=== PATIENT | male | born 1940 | race Caucasian/White ===

== ENCOUNTER 2016-11-01 09:37 | Day surgery (SDC) | payer MEDICARE ==
[2016-11-01] MEDS ORDERED: LIDOCAINE 2% MDV (20MG/ML) 20ML VIAL IV ONE (14:27)
[2016-11-01] MEDS ORDERED: MIDAZOLAM HCL 2MG/2ML VIAL IV ONE (14:27)
[2016-11-01] MEDS ORDERED: PROPOFOL 10 MG/ML VIAL IV ONE (14:27)
--- NOTE | 2016-11-07 09:22 | Operative Note ---
DATE OF SURGERY: 11/01/2016 SURGEON: Junior Ye MD OPERATION: COLONOSCOPY. INDICATIONS: This is a 76-year-old male with history of colon polyps, last colonoscopy about 5 years ago, who presented for surveillance colonoscopy. POSTOPERATIVE DIAGNOSES: 1. Left-sided colonic diverticulosis. 2. A 5 mm sessile polyp in the cecum that was removed by cold snare. 3. Grade 1 internal hemorrhoids. ANESTHESIA: Sedation is per Anesthesia. Pulse oximetry was monitored throughout the procedure to maintain O2 saturation of 90% or greater. Supplemental oxygen was administered via nasal cannula. Cardiac and vital signs were monitored throughout the duration of the procedure, and they were stable. The procedure of colonoscopy and risks and alternatives of the procedure, including the risk of bleeding and perforation, among others, were explained to the patient who voiced understanding and agreed to have the procedure done. Physical examination was performed, and the patient was found stable for sedation. PROCEDURE: The patient was placed in the left lateral position. Sedation was initiated. A digital rectal exam was performed and showed some mild external hemorrhoids with no palpable rectal masses. An Olympus PCF-180AL colonoscope was then inserted into the rectum under direct visualization. It was advanced to the cecum without difficulty. The ileocecal valve and appendiceal orifice were identified and photographed. The colonic mucosa was carefully examined upon introduction of the colonoscope. There were scattered diverticula noted in the sigmoid and descending colon. In the cecum was a 6 mm sessile polyp that was noted and was removed by cold snare. There were no other lesions noted. The colonoscope was then withdrawn while carefully examining the colonic mucosal surfaces. No other lesions were noted. In the rectum, retroflexion was performed and grade 1 internal hemorrhoids were noted. The colonoscope was then withdrawn and the procedure was terminated. The patient tolerated the procedure well without any immediate complications. He remained with stable vital signs and was transferred to the recovery room. RECOMMENDATIONS: 1. The patient should be on a high-fiber diet. 2. The patient is to have a repeat colonoscopy for surveillance in 3 or 5 years depending on the histology of the polyp. Thank you for allowing me to participate in the care of your patient. CC: Dr. Bey Junior Ye MD Date/Time [facility]
== END 2016-11-01 17:27 | disposition home or self-care (01) ==
LOC: HOP 09:37
PROVIDERS: ATTEND Internal Medicine Gastroenterology
DX: Z12.11 Encounter for screening for malignant neoplasm of colon (principal); Z86.010 Personal history of colon polyps; D12.0 Benign neoplasm of cecum; K64.0 First degree hemorrhoids; K57.30 Diverticulosis of large intestine without perforation or abscess without bleeding; E78.00 Pure hypercholesterolemia, unspecified; I10 Essential (primary) hypertension; E11.9 Type 2 diabetes mellitus without complications; Z79.4 Long term (current) use of insulin; Z79.84 Long term (current) use of oral hypoglycemic drugs

== ENCOUNTER 2017-04-15 20:51 | Inpatient (IN) | payer MEDICARE ==
[2017-04-15] MEDS ORDERED: ACETAMINOPHEN 500 MG TABLET PO ONE (21:06)
[2017-04-15 21:10] LABS: HEMATOCRIT 42.1 % (42.0-52.0); HEMOGLOBIN 15.3 gm/dl (14.0-18.0); MEAN CELL VOLUME 99.1 fl (81-97); MEAN CORPUSCULAR HGB CONC 36.3 g/dl (32-36); MEAN PLATELET VOLUME 10.2 fl (7.4-10.4); RED BLOOD COUNT 4.25 M/uL (4.40-5.70); RED CELL DISTRIBUTION WIDTH 15.1 % (11.5-14.5)
[2017-04-15] MEDS ORDERED: ONDANSETRON HCL IV 4 MG/2 ML VIAL IVP ONE (21:10)
--- NOTE | 2017-04-15 21:12 | Emergency Department Record ---
History of Present Illness - General Chief Complaint: Tremor Stated Complaint: UNCONTROLLABLE SHAKING Time Seen by Provider: 04/15/17 20:52 Source: Patient Mode of Arrival: Wheelchair Limitations: No limitations - History of Present Illness Initial comments: 76 yo male presents to ED for evaluation of fever and shaking this evening. Patient denies cough symptoms or VIKTORIYA, denies urinary symptoms. Patient does report a history of ascites secondary to cirrhosis, reports mild abdominal pain symptoms. Patient reports that he is due for paracentesis in 2 days. Patient reports history of IDDM and HTN. -: Days(s) Consistency: Constant Improves with: None Worsens with: None Associated Symptoms: Nausea/vomiting - Jeannine Coma Scale Eye Response: (4) Open spontaneously Motor Response: (6) Obeys commands Verbal Response: (5) Oriented Jeannine Total: 15 - Related Data Home Medications Medication Instructions Recorded Confirmed Last Taken Beta-Carotene(A)-Vits C,E/Mins 1 each PO DAILY 04/15/17 04/15/17 04/15/17 08:00 [Vision Vitamins] 1 tablet Glimepiride [Amaryl] 4 mg PO BID 04/15/17 04/15/17 04/15/17 18:00 4 mg Insulin Glargine,Hum.rec.anlog 1 unit SQ QPM 04/15/17 04/15/17 04/15/17 08:00 [Lantus] Losartan Potassium [Cozaar] 12.5 mg PO DAILY 04/15/17 04/15/17 04/15/17 08:00 12.5 Nitroglycerin [Nitro-Dur] 0.5 patch TD Q24H 04/15/17 04/15/17 04/15/17 08:00 (1/2) 0.4mg/hr patch Pravastatin Sodium [Pravachol] 40 mg PO DAILY 04/15/17 04/15/17 04/15/17 18:00 40 mg Spironolactone [Aldactone] 50 mg PO BID 04/15/17 04/15/17 04/15/17 18:00 50 mg Torsemide [Demadex] 30 mg PO DAILY 04/15/17 04/15/17 04/15/17 08:00 30 mg Allergies Allergy/AdvReac Type Severity Reaction Status Date / Time Penicillins Allergy RASH Verified 04/15/17 21:00 Travel Screening - Travel/Exposure Within Last 30 Days Have you traveled within the last 30 days?: No - Travel/Exposure Within Last Year Have you traveled outside the [place] in the last year?: No - Additonal Travel Details Have you been exposed to anyone with a communicable illness?: No - Travel Symptoms Symptom Screening: None Review of Systems Constitutional: Reports: Chills, Fever, Malaise. Denies: Night sweats Eyes: Denies: Eye discharge, Eye pain ENT: Denies: Congestion, Ear pain Respiratory: Denies: Cough, Dyspnea Cardiovascular: Reports: Edema. Denies: Chest pain, Dyspnea on exertion Endocrine: Denies: Fatigue, Heat or cold intolerance Gastrointestinal: Reports: Abdominal pain, Nausea. Denies: Vomiting Genitourinary: Denies: Incontinence, Retention Musculoskeletal: Reports: Myalgia. Denies: Arthralgia, Back pain Skin: Denies: Bruising, Change in color Neurological: Denies: Abnormal gait, Confusion, Headache, Seizure Psychiatric: Denies: Anxiety Hematological/Lymphatic: Denies: Anemia Past Medical History - SOCIAL HISTORY Smoking Status: Former smoker Alcohol Use: None Drug Use: None - RESPIRATORY Hx Respiratory Disorders: No - CARDIOVASCULAR Hx Cardio Disorders: Yes Hx Deep Vein Thrombosis: Yes Hx Edema: Yes Hx Hypertension: Yes Comment:: HIGH CHOLESTEROL - NEURO Hx Neuro Disorders: No - GI Hx GI Disorders: Yes Hx Diverticulitis: Yes Hx Liver Disease: Yes (?) - Hx Genitourinary Disorders: No - ENDOCRINE Hx Endocrine Disorders: Yes Hx Diabetes: Yes - MUSCULOSKELETAL Hx Musculoskeletal Disorders: No - PSYCH Hx Psych Problems: No - HEMATOLOGY/ONCOLOGY Hx Hematology/Oncology Disorders: Yes Hx Blood Disorders: Yes (low platelets) Comment:: MELANOMA Family Medical History Any Significant Family History?: Yes Hx Cancer: Father Physical Exam - General General Appearance: Alert, Oriented x3, Cooperative, Moderate distress Limitations: No limitations - Head Head exam: Atraumatic, Normocephalic, Normal inspection Head exam detail: negative: Abrasion, Contusion, Sauer's sign, General tenderness, Hematoma, Laceration - Eye Eye exam: Normal appearance. negative: Conjunctival injection, Periorbital swelling, Periorbital tenderness, Scleral icterus - ENT Ear exam: negative: Auricular hematoma, Auricular trauma Nasal Exam: negative: Active bleeding, Discharge, Dried blood, Foreign body - Neck Neck exam: Normal inspection. negative: Meningismus, Tenderness - Respiratory Respiratory exam: Normal lung sounds bilaterally. negative: Rales, Respiratory distress, Rhonchi, Stridor - Cardiovascular Cardiovascular Exam: Normal heart sounds, Tachycardia - GI/Abdominal GI/Abdominal exam: Soft, Tenderness (Mild, diffuse TTP on examination, no rebound, no guarding.). negative: Rebound, Rigid - Rectal Rectal exam: Deferred - exam: Deferred - Extremities Extremities exam: Pedal edema. negative: Tenderness - Back Back exam: Denies: CVA tenderness (R), CVA tenderness (L) - Neurological Neurological exam: Alert, Normal gait, Oriented X3 - Psychiatric Psychiatric exam: Normal affect, Normal mood - Skin Skin exam: Normal color. negative: Abrasion Type of lesion: negative: abrasion Course Vital Signs 04/15/17 04/15/17 20:54 20:57 Temperature 98.6 F Pulse Rate [ 103 H Pulse Ox Probe] Respiratory 20 24 Rate Blood Pressure 148/91 [Left Arm] Pulse Ox 93 L - Reevaluation(s) Reevaluation #1: 04/15/17 21:37 Labs reviewed, WBC 9.0 with 83% Neutrophils. Lactic acid 3.3, Ammonia 80, glucose 208. Influenza negative. UA pending. Reevaluation #2: 04/15/17 21:47 UA resulted and appears normal. CXR: RLL infiltrate. Based on the patient's low oxygen saturation and physical examination specifically the lack of peritoneal signs in the abdomen and a lack of a portal of entry into the abdominal cavity (peritoneal dialysis catheter), I do not suspect SBP on examination at this time. Rocephin and Zithromax ordered for CAP , will admit for further evaluation. Reevaluation #3: 04/16/17 03:55 Per floor nursing staff, EKG was performed per med-surg protocol for rhythm change. EKG was reviewed, appears c/w atrial fibrillation/flutter, rate controlled. As the patient is not currently a rapid response and is rate controlled, nursing staff was asked to consult with the admitting physician to determine if anticoagulation should be initiated in the presence of thrombocytopenia. Reevaluation #4: 04/16/17 06:42 Case was discussed with Dr. Croft, will accept admission. Medical Decision Making - Lab Data Result diagrams: 04/15/17 21:00 04/15/17 21:00 Lab Results 04/15/17 Range/Units 21:00 Lactic Acid Cancelled Disposition Disposition: Admit Clinical Impression: Lactic acidosis, Hepatic encephalopathy, IDDM (insulin dependent diabetes mellitus) CAP (community acquired pneumonia) Qualifiers: Laterality: right Lung location: lower lobe of lung Qualified Code(s): J18.1 - Lobar pneumonia, unspecified organism Disposition: Still a Patient at [facility] Decision to Admit: Admit from ER Decision to Admit Date: 04/15/17 Decision to Admit Time: 21:49 Time of Disposition: 21:49 Quality - Quality Measures Quality Measures: N/A - Blood Pressure Screening Does Patient Have Any of the Following: Active Dx of HTN Blood Pressure Classification: Normal BP Reading Systolic Measurement: 105 Diastolic Measurement: 75 Screening for High Blood Pressure: Patient Exclusion, Hx of HTN [G9744]
[2017-04-15 21:14] LABS: PLATELET COUNT 80 K/uL (130-400)
[2017-04-15] MEDS ORDERED: 0.9 % SODIUM CHLORIDE 1000ML 500 ML IV SCH (21:15)
[2017-04-15 21:22] LABS: BLOOD UREA NITROGEN 21 mg/dL (8-23); EST GLOMERULAR FILTRATION RATE > 60 mL/min
[2017-04-15 21:23] LABS: INFLUENZA A NEGATIVE (NEGATIVE); INFLUENZA B NEGATIVE (NEGATIVE); TOTAL PROTEIN 7.6 g/dL (6.6-8.7)
[2017-04-15 21:25] LABS: GLUCOSE,RANDOM 208 mg/dL (74-109)
[2017-04-15 21:27] LABS: ALT/SGPT 47 U/L (<41); AST/SGOT 64 U/L (10.0-50.0)
[2017-04-15 21:28] LABS: ALB/GLOB RATIO 0.9 (1.1-1.8); ALBUMIN 3.5 g/dL (4.0-5.0); ALKALINE PHOSPHATASE 191 U/L (40-129)
[2017-04-15 21:40] LABS: URINE APPEARANCE CLEAR; URINE BILIRUBIN NEGATIVE (NEGATIVE); URINE BLOOD NEGATIVE (NEGATIVE); URINE COLOR STRAW; URINE GLUCOSE (UA) NEGATIVE (NEGATIVE); URINE KETONE NEGATIVE (NEGATIVE); URINE LEUKOCYTE ESTERASE NEGATIVE (NEGATIVE); URINE NITRITE NEGATIVE (NEGATIVE); URINE PROTEIN NEGATIVE (NEGATIVE); URINE UROBILINOGEN >=8.0 E.U./dL (0.20 - 1.00)
[2017-04-15] MEDS ORDERED: CEFTRIAXONE SODIUM 1 GM in 0.9 % SODIUM CHLORIDE 100ML 100 ML IVPB ONE (21:49)
[2017-04-15] MEDS ORDERED: AZITHROMYCIN 500 MG in 0.9 % SODIUM CHLORIDE 250ML 250 ML IVPB ONE (21:49)
[2017-04-15] MEDS ORDERED: 0.9 % SODIUM CHLORIDE 1000ML 1,000 ML IV PRN (22:26)
[2017-04-15] MEDS ORDERED: ACETAMINOPHEN 500 MG TABLET PO PRN (22:26)
[2017-04-15] MEDS ORDERED: CEFTRIAXONE SODIUM 1 GM in 0.9 % SODIUM CHLORIDE 100ML 100 ML IVPB SCH (22:26)
[2017-04-15] MEDS ORDERED: NITROGLYCERIN 0.4 MG TD SCH (22:26)
[2017-04-15] MEDS ORDERED: SPIRONOLACTONE 25 MG TAB PO SCH (22:26)
[2017-04-15] MEDS ORDERED: PNEUM 13-VAL/PF 0.5 ML IM ONE (23:13)
[2017-04-15] MEDS: LEVEMIR FLEXTOUCH 100 UNIT/ML INSULIN PEN SQ SCH (23:33)
[2017-04-16] MEDS ORDERED: AZITHROMYCIN 500 MG in 0.9 % SODIUM CHLORIDE 250ML 250 ML IVPB SCH ×2
[2017-04-16] MEDS: IPRATROPIUM/ALBUTEROL (0.5MG/3MG) NEB INH SCH ×4 (00:10→09:39)
[2017-04-16] MEDS ORDERED: IBUPROFEN 400 MG TABLET PO PRN (01:02)
[2017-04-16] MEDS ORDERED: 0.9 % SODIUM CHLORIDE 1000ML 1,000 ML IV ONE (06:22)
[2017-04-16 06:46] LABS: BLOOD UREA NITROGEN 24 mg/dL (8-23); EST GLOMERULAR FILTRATION RATE > 60 mL/min
[2017-04-16 06:49] LABS: GLUCOSE,RANDOM 135 mg/dL (74-109)
[2017-04-16 06:54] LABS: CKMB 3.3 ng/mL (<6.73)
[2017-04-16] MEDS: LEVEMIR FLEXTOUCH 100 UNIT/ML INSULIN PEN SQ SCH (08:08)
[2017-04-16] MEDS ORDERED: LEVOFLOXACIN/D5W 750 MG/150 ML BAG IVPB SCH (08:45)
[2017-04-16 09:08] LABS: INR 1.6; PROTHROMBIN TIME (PATIENT) 17.4 SECONDS (9.5-12.1)
[2017-04-16] MEDS ORDERED: LOSARTAN POTASSIUM 25 MG TABLET PO SCH (10:00)
[2017-04-16] MEDS ORDERED: TORSEMIDE 20 MG PO SCH (10:00)
[2017-04-16] MEDS ORDERED: NITROGLYCERIN 0.2 MG TD SCH (10:00)
--- NOTE | 2017-04-16 10:18 | RADIOLOGY REPORT ---
EXAM: CHEST, TWO VIEWS HISTORY: FEVER. TECHNIQUE: PA and lateral upright views of the chest were obtained. Comparison: None. FINDINGS: The heart, mediastinum, and pulmonary vasculature are normal. There is mild infiltrate at the right lung base. Minor linear atelectasis is present at the left lung base. The upper lung marie are clear. There is no pneumothorax or effusion. The bones appear intact. IMPRESSION: MODERATE BASILAR INFILTRATE SUGGESTING DEVELOPING PNEUMONIA. JOB NUMBER: [id number] MTDD
--- NOTE | 2017-04-16 11:02 | History and Physical Report ---
DATE OF EVALUATION: 04/16/2017 DATE OF ADMISSION: 04/15/2017 CHIEF COMPLAINT: Fever, abdominal ascites, shakes and chills. HISTORY OF THE PRESENT ILLNESS: This 76-year-old male presented to the Emergency Department with fever, shakes, chills, and abdominal pain. He was evaluated by Dr. Brady and admitted to the hospital for right lower quadrant pneumonia and ascites. The patient initially denied much of a cough, but when probed as far as his cough, he was coughing up sputum occasionally. He did not have a fever prior to last night. He did have ascites that has been going on for about 4 weeks. He has gained about 20 to 30 pounds of weight in the last 4 weeks, and he was being scheduled to see Dr. Romero as an outpatient for her ascites, liver disease with a possible paracentesis in mind. Patient has a history of insulin-dependent diabetes mellitus and hypertension. PAST MEDICAL HISTORY: Diabetes mellitus with insulin use, idiopathic thrombocytopenia (platelet count is running about 75,000 to 80,000), fatty liver disease, possible cirrhosis but I do not believe it has been diagnosed at this time, hypertension, hypercholesterolemia, coronary artery disease, and he is an ex-smoker. PAST SURGICAL HISTORY: Appendectomy, tonsillectomy, carpal tunnel, and a colonoscopy. MEDICATIONS ON ADMISSION: Nitro-Dur half-patch every 24 hours, Aldactone 50 mg b.i.d., Demadex 30 mg daily, losartan 12.5 mg daily, Amaryl (glimepiride) 4 mg b.i.d. with meals, Pravachol 40 mg daily, vitamins for his eyes, and insulin 100 units every morning. ALLERGIES: Penicillin. FAMILY PSYCHOSOCIAL HISTORY: Father had cancer. No other significant history. He is a former smoker. No drug or alcohol use in the past. He was never a heavy drinker. REVIEW OF SYSTEMS: HEENT: No congestion. No sore throat. Slight cough, only occasionally clearing his throat with some sputum. No visual problems or hearing problems. Cardiovascular: He denies any chest pain. He did have an episode of atrial fib. in the hospital last night. His rate is controlled. Respiratory: No shortness of breath. No chest pain. He states when he takes a deep breath because of the ascites, he has a hard time taking a breath. Gastrointestinal: He is very distended. He has some diffuse abdominal pain in the lower abdomen. No diarrhea or vomiting. Genitourinary: No dysuria, hematuria, frequency, or burning on urination. Musculoskeletal: Moving all 4 extremities. No arthritis. Neurologic: No CVA, paralysis, or paresthesias. Endocrine: He has diabetes mellitus type 2. No hypothyroidism. Integument: No rash, ulcers, changes in moles, or yellow skin. His legs are swollen. PHYSICAL EXAMINATION: VITAL SIGNS: Weight is 298 pounds. His height is 6'2". He did have a fever last night of 102.5. His temperature now is 98.5. Pulse is 75. Blood pressure 102/61. Respiratory rate is 18. Pulse ox 95% on 2 liters nasal cannula. HEENT: Pupils equal, round, and reactive to light and accommodation. Extraocular muscles intact. Throat is clear. Nose is clear. Tympanic membranes paredes. NECK: Supple. No jugular venous distention. No hepatojugular reflux. No thyroid masses. CARDIOVASCULAR: Irregular rate and rhythm with atrial fib/atrial flutter on the monitor. RESPIRATORY: Breath sounds equal bilaterally, but he is unable to take a deep breath because of his ascites. ABDOMEN: Distended, bloated, and soft. There is some tenderness in the lower abdomen bilaterally. No rebound or rigidity. No signs of peritonitis. EXTREMITIES: Edema 2+ to 3+ bilaterally. No pain on palpation of the calves or the thighs. BREASTS: Normal male breasts. GENITALIA: Deferred. RECTAL: Deferred. NEUROLOGIC: Cranial nerves II-XII intact. No gross deficits. Sensation normal. Strength normal. Deep tendon reflexes equal bilaterally. Babinski is negative. MENTAL STATUS: Alert and oriented x3. IMPRESSION: 1. Fever. 2. Right lower lobe infiltrate on chest x-ray. 3. Ascites. 4. Liver disease with fatty liver, possible cirrhosis. 5. Diabetes mellitus, on inulin. 6. Idiopathic thrombocytopenia. Platelet count is 80,000. 7. Coronary artery disease, on Nitro-Dur patch. 8. Elevated troponin T in our hospital here last night. 9. Possible spontaneous bacterial peritonitis, early. PLAN: Discussed the case with Dr. Escamilla, Internal Medicine D Service at [facility]. Will transfer to [facility] for further evaluation, and to get GI involved for further evaluation. INPATIENT CERTIFICATION: Admit to Inpatient Care. Based on my medical assessment and after consideration of patient risk factors, age, comorbidities, and patient presenting symptoms on Acute, I expect this patient will remain in the hospital greater than or equal to 2 midnights, and the services needed warrant inpatient care because of liver failure, ascites, respiratory problems, possible pneumonia. ESTIMATED LENGTH OF STAY: 3 days. The patient may reasonably be expected to be discharged or transferred to a hospital within 96 hours after admission to [facility]. I certify that my determination is in accordance with my understanding of Medicare requirements for reasonable and necessary inpatient services. JONATHAN
--- NOTE | 2017-04-16 11:02 | Discharge Summary ---
DATE OF ADMISSION: 04/15/2017 DATE OF DISCHARGE: 04/16/2017 at 9:03 a.m. DISCHARGE/TRANSFER DIAGNOSIS: Patient is being transferred to [facility]. 1. Fever. 2. Right lower lobe infiltrate, questionable pneumonia because he has no symptoms that go along with pneumonia. 3. Ascites. 4. Liver disease. Fatty liver, with possible cirrhosis. 5. Diabetes mellitus, on insulin. 6. Idiopathic thrombocytopenia. Platelet count is 80,000 7. Coronary artery disease. 8. Elevated troponin I. 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 9. Status post hypercholesterolemia. ATTENDING PHYSICIAN: Jed Croft DO REASON FOR HOSPITALIZATION: Fever, chills, shaking, and abdominal pain, lower abdomen. Occasional cough. HISTORY: This 76-year-old male was seen through the Emergency Department last night about 10 p.m., admitted to the hospital with diagnosis of right lower lobe pneumonia. Chest x-ray revealed possible infiltrate or atelectasis, may be atelectasis from the ascites pushing up on the liver. Was given 1 gram of Rocephin in the Emergency Department. The patient has had a weight gain of 20 to 30 pounds over the last 4 weeks. He has had known liver disease, but he called it fatty liver. He does not use the word "cirrhosis." I am not sure if he was ever diagnosed with cirrhosis. An ultrasound was done on 04/08/2017, which showed a somewhat small-appearing liver with very coarse echogenic, and finally nodular, outline suggesting cirrhosis. No focal hepatic mass identified by ultrasound. Prominent splenomegaly with no focal splenic mass evident. He does have cholelithiasis, mild diffuse prominence of the gallbladder wall that is nonspecific, although this may be related to the ascites present. He has moderate ascites by ultrasound. Patient was admitted to our hospital at [facility]; however, because of all these problems and the need for various specialty people to evaluate him, he will be transferred up to [facility]. SIGNIFICANT FINDINGS: During the night, the patient went into atrial fib/flutter. Rate is controlled. Decided not to anticoagulate him because of his liver disease and his low platelet count. The EKG is not in the chart. I will send a copy of the EKG with the patient to [facility]. LABORATORY: WBC is 4400, hemoglobin is 15.6 and went down to 15.3. His potassium went up to 5.6 last night. Sodium was 135, BUN was 24, creatinine was 1. His lactic acid improved in the Emergency Department. It was 3.3 and went down to 1.8. His liver enzymes AST was 64, ALT was 47, alkaline phosphatase was 191, ammonia was 80 and slightly elevated. He has no mental status changes. His CK-MB was normal at 3.3. The troponin T was elevated at 0.075. Lipase was normal at 46. The urine was negative for infection. Influenza A and B were negative. The EKG showing fib/flutter. THERAPY PROVIDED: The patient was given 1 gram Rocephin. He was given azithromycin 500 mg at 1 a.m., and he will be given Levaquin 750 mg IV before transfer. A PT and PTT are pending at this time. HOSPITAL COURSE: The patient is stable. He is breathing adequately at this point. No significant cough. He has ascites with at least 30 pints of extra fluid on board. His weight has gone up 30 pounds in 4 weeks. His legs are swollen. Discussed the case with Dr. Escamilla at [facility]. Will transfer up for both GI, Cardiology, and Hematology to evaluate him for his various problems. CONDITION AT DISCHARGE: Improved and stable. He is being transferred to [facility] for further evaluation. He will follow up with me after discharge from [facility]. JONATHAN
[2017-04-16] MEDS ORDERED: CEFTRIAXONE SODIUM 1 GM in 0.9 % SODIUM CHLORIDE 100ML 100 ML IVPB SCH (22:00)
[2017-04-16] MEDS ORDERED: SIMVASTATIN 20 MG TABLET PO SCH (22:00)
[2017-04-16] MEDS ORDERED: GLIMEPIRIDE 2 MG TABLET PO SCH (23:30)
[2017-04-17] MEDS ORDERED: LEVEMIR FLEXTOUCH 100 UNIT/ML INSULIN PEN SQ SCH (08:00)
== END 2017-04-16 10:00 | disposition short-term general hospital (02) | DRG 194 ==
LOC: ER 20:51 → MEDSURG 22:13
PROVIDERS: ADMIT Emergency Medicine; ATTEND Emergency Medicine
DX: R50.9 Fever, unspecified (principal); J18.9 Pneumonia, unspecified organism; R18.8 Other ascites; D69.3 Immune thrombocytopenic purpura; E11.9 Type 2 diabetes mellitus without complications; Z79.4 Long term (current) use of insulin; K74.60 Unspecified cirrhosis of liver; E78.00 Pure hypercholesterolemia, unspecified; Z87.891 Personal history of nicotine dependence; I10 Essential (primary) hypertension; I25.10 Atherosclerotic heart disease of native coronary artery without angina pectoris; R79.89 Other specified abnormal findings of blood chemistry
CPT/HCPCS: 93041; 99285 ×2; 96365; 96375; 83605; 82140; 80048; 80053; 81003; 87400; 85027; 71046; J2405; 82553; 84484; 85610; 85730; 93005; J0456; J1956; J7030; J7050

== ENCOUNTER 2017-05-24 00:45 | Emergency (ER) | payer MEDICARE ==
--- NOTE | 2017-05-24 01:08 | Emergency Department Record ---
History of Present Illness - General Chief complaint: Weakness Stated complaint: WEAKNESS/FEVER Time Seen by Provider: 05/24/17 01:01 Source: Patient, Family (patient's ) Mode of Arrival: Wheelchair Limitations: No limitations - History of Present Illness Initial comments: 76 yo male presents to ED for evaluation of cough symptoms and fever this morning. Patient was seen 04/15/17 for similar symptoms, diagnosed with RLL pneumonia, and transferred to [facility] for 2+ weeks-was discharged home 1 week ago. Patient reports weakness and fatigue symptoms. Patient reports a history of atrial fibrillation and is now taking Lovenox for his chronic arrhythmia. Patient denies abdominal pain symptoms on examination and denies dysuria. MD Complaint: Generalized weakness Onset/Timin -: Days(s) Location: Generalized Severity: Moderate Consistency: Constant Improves with: None Worsens with: Exertion Context: Recent illness Associated Symptoms: Fever/chills, Nausea/vomiting, Other - Pride Coma Scale Eye Response: (4) Open spontaneously Motor Response: (6) Obeys commands Verbal Response: (5) Oriented Pride Total: 15 - Related Data Home Medications Medication Instructions Recorded Confirmed Last Taken Aspirin [Adult Low Dose Aspirin EC] 81 mg PO DAILY 05/24/17 05/24/17 05/23/17 Ca/D3/Mag Ox/Zinc/Senior Software Development Engineer/Hardy/Bor 1 tab PO DAILY 05/24/17 05/24/17 05/23/17 [Calcium 600-D3 Plus Caplet] Enoxaparin Sodium [Lovenox] 120 mg SQ DAILY 05/24/17 05/24/17 05/23/17 Allergies Allergy/AdvReac Type Severity Reaction Status Date / Time Penicillins Allergy RASH Verified 04/15/17 21:00 Travel Screening - Travel/Exposure Within Last 30 Days Have you traveled within the last 30 days?: No - Travel Symptoms Symptom Screening: Fever (Subjective), Fatigue, Chills Review of Systems Constitutional: Reports: Chills, Fever, Malaise, Weakness. Denies: Night sweats Eyes: Denies: Eye discharge, Eye pain ENT: Denies: Congestion, Ear pain, Epistaxis Respiratory: Reports: Cough, Dyspnea Cardiovascular: Reports: Dyspnea on exertion. Denies: Chest pain Endocrine: Reports: Fatigue. Denies: Heat or cold intolerance Gastrointestinal: Denies: Abdominal pain, Vomiting Genitourinary: Denies: Incontinence, Retention Musculoskeletal: Denies: Arthralgia, Back pain, Gout Skin: Denies: Bruising, Change in color, Change in hair/nails Neurological: Denies: Abnormal gait, Confusion, Headache, Seizure Psychiatric: Denies: Anxiety Hematological/Lymphatic: Reports: Easy bleeding, Easy bruising. Denies: Anemia , Blood Clots Past Medical History - SOCIAL HISTORY Smoking Status: Former smoker Alcohol Use: None Drug Use: None - RESPIRATORY Hx Respiratory Disorders: No - CARDIOVASCULAR Hx Cardio Disorders: Yes Hx Deep Vein Thrombosis: Yes Hx Edema: Yes Hx Hypertension: Yes Comment:: HIGH CHOLESTEROL - NEURO Hx Neuro Disorders: No - GI Hx GI Disorders: Yes Hx Diverticulitis: Yes Hx Liver Disease: Yes (?) - Hx Genitourinary Disorders: No - ENDOCRINE Hx Endocrine Disorders: Yes Hx Diabetes: Yes - MUSCULOSKELETAL Hx Musculoskeletal Disorders: No - PSYCH Hx Psych Problems: No - HEMATOLOGY/ONCOLOGY Hx Hematology/Oncology Disorders: Yes Hx Blood Disorders: Yes (low platelets) Comment:: MELANOMA Family Medical History Any Significant Family History?: Yes Hx Cancer: Father Physical Exam - General General Appearance: Alert, Oriented x3, Cooperative, Moderate distress Limitations: No limitations - Head Head exam: Atraumatic, Normocephalic, Normal inspection Head exam detail: negative: Abrasion, Contusion, Sauer's sign, General tenderness, Hematoma, Laceration - Eye Eye exam: Normal appearance. negative: Conjunctival injection, Periorbital swelling, Periorbital tenderness, Scleral icterus - ENT Ear exam: negative: Auricular hematoma, Auricular trauma Nasal Exam: negative: Active bleeding, Discharge, Dried blood, Foreign body Mouth exam: negative: Drooling, Laceration, Tongue elevation - Neck Neck exam: Normal inspection. negative: Meningismus, Tenderness - Respiratory Respiratory exam: Other (coarse BS right). negative: Rales, Respiratory distress, Rhonchi - Cardiovascular Cardiovascular Exam: Irregular rhythm, Tachycardia - GI/Abdominal GI/Abdominal exam: Soft, Other (ecchymosis to the lower abdomen due to lovenox injections). negative: Rebound, Rigid, Tenderness - Rectal Rectal exam: Deferred - exam: Deferred - Extremities Extremities exam: Normal inspection. negative: Pedal edema, Tenderness - Back Back exam: Denies: CVA tenderness (R), CVA tenderness (L) - Neurological Neurological exam: Alert, Oriented X3. negative: Motor sensory deficit - Psychiatric Psychiatric exam: Normal affect, Normal mood - Skin Skin exam: Normal color. negative: Abrasion Type of lesion: negative: abrasion Course Vital Signs 05/24/17 00:50 Temperature 99.1 F Pulse Rate [ 120 H Pulse Ox Probe] Respiratory 24 Rate Blood Pressure 95/57 [Left Arm] Pulse Ox 97 - Reevaluation(s) Reevaluation #1: 05/24/17 01:14 EKG: Atrial fibrillation 99 Normal axis, low voltage anteriorly Nonspecific ST-T wave changes are present Reevaluation #2: 05/24/17 01:40 CXR: Significant improvement in previously seen RLL infiltrate. Reevaluation #3: 05/24/17 01:52 Labs reviewed: Platelets 50K (Baseline 60-80K) WBC 8.6 with 89% Neutrophils LA 2.2 INR 1.3 Troponin 0.019 Glucose 325 Patient reassessed, BP increased to 111/69. UA pending. Reevaluation #4: 05/24/17 02:18 Patient and his SO were updated on all results, will initiate transfer to [facility] for further evaluation. Reevaluation #5: 05/24/17 02:26 Case was discussed with Dr. Jim, will accept patient for transfer and further evaluation. Medical Decision Making - Lab Data Result diagrams: 05/24/17 01:05 05/24/17 01:05 Disposition Disposition: Transfer Clinical Impression: IDDM (insulin dependent diabetes mellitus) Hypotension Qualifiers: Hypotension type: unspecified hypotension type Qualified Code(s): I95.9 - Hypotension, unspecified Fever Qualifiers: Fever type: unspecified Qualified Code(s): R50.9 - Fever, unspecified Atrial fibrillation Qualifiers: Atrial fibrillation type: chronic Qualified Code(s): I48.2 - Chronic atrial fibrillation Disposition: Acute Care Hospital Transfer Transfer To: [facility] Reason For Transfer: SDU placement, sepsis Accepting Physician: Hernán Time Discussed w/Accepting Physician: : Condition: (2) Stable Forms: Patient Portal Access Time of Disposition: : Quality - Quality Measures Quality Measures: N/A - Blood Pressure Screening Does Patient Have Any of the Following: No Blood Pressure Classification: Normal BP Reading Systolic Measurement: 102 Diastolic Measurement: 65 Screening for High Blood Pressure: < Normal BP, F/U Not Required > [G8783]
[2017-05-24] MEDS ORDERED: 0.9 % SODIUM CHLORIDE 1000ML 1,000 ML IV SCH (01:15)
[2017-05-24 01:27] LABS: INR 1.3; PROTHROMBIN TIME (PATIENT) 14.2 SECONDS (9.5-12.1)
[2017-05-24 01:28] LABS: BASO % 0.1 % (0-6); BLOOD UREA NITROGEN 21 mg/dL (8-23); CREATININE 0.9 mg/dL (0.7-1.2); EOS % 0.2 % (0-6); EST GLOMERULAR FILTRATION RATE > 60 mL/min; HEMATOCRIT 36.9 % (42.0-52.0); MEAN CELL VOLUME 97.1 fl (81-97); MEAN CORPUSCULAR HEMOGLOBIN 34.2 pg (27-33); MEAN CORPUSCULAR HGB CONC 35.2 g/dl (32-36); MEAN PLATELET VOLUME 11.1 fl (7.4-10.4); MONO % 6.8 % (0-9); RED CELL DISTRIBUTION WIDTH 14.5 % (11.5-14.5); WHITE BLOOD COUNT W/O DIFF 8.6 K/uL (4.2-12.2)
[2017-05-24 01:29] LABS: TOTAL PROTEIN 6.9 g/dL (6.6-8.7)
[2017-05-24 01:30] LABS: GLUCOSE,RANDOM 325 mg/dL (74-109)
[2017-05-24 01:33] LABS: ALB/GLOB RATIO 0.9 (1.1-1.8); ALBUMIN 3.2 g/dL (4.0-5.0); ALKALINE PHOSPHATASE 143 U/L (40-129); ALT/SGPT 73 U/L (<41); AMMONIA 38 umol/L (16.0-60.0); AST/SGOT 72 U/L (10.0-50.0); PLATELET COUNT 50 K/uL (130-400)
[2017-05-24 01:47] LABS: PLATELET ESTIMATE DECREASED (NORMAL)
[2017-05-24 01:48] LABS: LACTIC ACID 2.2 mmol/L (0.5-2.2)
[2017-05-24] MEDS ORDERED: 0.9 % SODIUM CHLORIDE 1000ML 500 ML IV SCH ×2 (02:30→03:45)
[2017-05-24 02:45] LABS: INFLUENZA A NEGATIVE (NEGATIVE); INFLUENZA B NEGATIVE (NEGATIVE)
[2017-05-24 03:01] LABS: URINE BILIRUBIN NEGATIVE (NEGATIVE); URINE BLOOD NEGATIVE (NEGATIVE); URINE KETONE NEGATIVE (NEGATIVE); URINE LEUKOCYTE ESTERASE NEGATIVE (NEGATIVE); URINE NITRITE NEGATIVE (NEGATIVE); URINE PROTEIN NEGATIVE (NEGATIVE); URINE UROBILINOGEN 0.2 E.U./dL (0.20 - 1.00)
[2017-05-24 03:03] LABS: URINE APPEARANCE CLEAR; URINE COLOR AMBER
--- NOTE | 2017-05-26 08:08 | RADIOLOGY REPORT ---
EXAM: CHEST, TWO VIEWS HISTORY: DIFFICULTY IN BREATHING. TECHNIQUE: Frontal and lateral views of the chest were performed. FINDINGS: The heart size is normal. No pulmonary vascular congestion. No infiltrate or pleural effusion. The osseous structures are normal. IMPRESSION: NO ACUTE DISEASE PROCESS. JOB NUMBER: [id number] MTDD
== END 2017-05-24 03:59 | disposition short-term general hospital (02) ==
LOC: ER 00:45
DX: I48.2 Chronic atrial fibrillation (principal); I95.9 Hypotension, unspecified; R53.1 Weakness; R50.9 Fever, unspecified; R06.00 Dyspnea, unspecified; E11.9 Type 2 diabetes mellitus without complications; R51 Headache; I10 Essential (primary) hypertension; Z87.891 Personal history of nicotine dependence; Z79.4 Long term (current) use of insulin
CPT/HCPCS: 71046; 80053; 81003; 82140; 83605; 84484; 85027; 85610; 87400; 93005; 93010; 96360; 99285; J7030

== ENCOUNTER 2017-06-09 08:37 | Inpatient (IN) | payer MEDICARE ==
--- NOTE | 2017-06-09 09:11 | Emergency Department Record ---
History of Present Illness - General Chief complaint: Weakness Stated complaint: WEAKNESS Time Seen by Provider: 06/09/17 08:56 Source: Patient, Family Mode of Arrival: Wheelchair Limitations: No limitations - History of Present Illness Initial comments: The patient is here with his due to generalized weakness. He was found crawling on the floor early Sat morning 2 days ago by his . There was no reported or witnessed fall. Since then he has been weak all over and confused. The patient's condition was better yesterday and he was able to walk around the house with a walker. This AM the patient had worsening confusion and was unable to get out of bed. There is no reported cough, fever, chills, vomiting, diarrhea , CP or SOB. He does take Lovenox due to a portal vein thrombosis and was just discharged from [facility] after a 10 day stay due to ITP. Complaint: Generalized weakness Onset/Timin -: Days(s) Location: Generalized Improves with: None Worsens with: None Associated Symptoms: Confusion - Symptoms of Stroke Onset of Symptoms Date: 06/07/17 Symptom Onset Unknown: Yes Symptoms of stroke: Onset of Confusion, Slurred Speech, Unsteady When Walking - Related Data Home Medications Medication Instructions Recorded Confirmed Last Taken Pantoprazole Sodium 40 mg PO DAILY 06/09/17 06/09/17 Unknown Allergies Allergy/AdvReac Type Severity Reaction Status Date / Time Penicillins Allergy RASH Verified 04/15/17 21:00 Travel Screening - Travel/Exposure Within Last 30 Days Have you traveled within the last 30 days?: No Review of Systems Constitutional: Denies: Chills, Fever Eyes: Denies: Eye discharge ENT: Denies: Congestion Respiratory: Denies: Cough, Dyspnea Cardiovascular: Denies: Arrhythmia, Chest pain, Dyspnea on exertion Past Medical History - SOCIAL HISTORY Smoking Status: Former smoker Alcohol Use: None Drug Use: None - RESPIRATORY Hx Respiratory Disorders: No - CARDIOVASCULAR Hx Cardio Disorders: Yes Hx Deep Vein Thrombosis: Yes Hx Edema: Yes Hx Hypertension: Yes Comment:: HIGH CHOLESTEROL - NEURO Hx Neuro Disorders: No - GI Hx GI Disorders: Yes Hx Diverticulitis: Yes Hx Liver Disease: Yes (?) - Hx Genitourinary Disorders: No - ENDOCRINE Hx Endocrine Disorders: Yes Hx Diabetes: Yes - MUSCULOSKELETAL Hx Musculoskeletal Disorders: No - PSYCH Hx Psych Problems: No - HEMATOLOGY/ONCOLOGY Hx Hematology/Oncology Disorders: Yes Hx Blood Disorders: Yes (low platelets) Comment:: MELANOMA Family Medical History Any Significant Family History?: Yes Hx Cancer: Father Physical Exam - General General Appearance: Alert, Cooperative, No acute distress - Head Head exam: Atraumatic, Normocephalic, Normal inspection - Eye Eye exam: Normal appearance, PERRL - ENT Throat exam: Normal inspection. negative: Tonsillar erythema, Tonsillar exudate - Neck Neck exam: Normal inspection, Full ROM. negative: Tenderness - Respiratory Respiratory exam: Normal lung sounds bilaterally. negative: Respiratory distress - Cardiovascular Cardiovascular Exam: Irregular rhythm - GI/Abdominal GI/Abdominal exam: Soft, Normal bowel sounds. negative: Tenderness - Extremities Extremities exam: Normal inspection, Full ROM, Normal capillary refill, Pedal edema (Trace bilaterally.). negative: Tenderness - Neurological Neurological exam: Abnormal gait, Alert. negative: Motor sensory deficit, Normal gait, Oriented X3 (The patient is oriented to name only.) - Skin Skin exam: negative: Rash Course Vital Signs 06/09/17 08:42 Pulse Rate 71 Respiratory 18 Rate Blood Pressure 138/85 Pulse Ox 99 - Reevaluation(s) Reevaluation #1: The patient is doing better at this time. He denies any pain or discomfort. The patient is still confused as to the date, day and year but understands he is in [facility]. I did inform the patient and that the xrays do not demonstrate any acute abnormality. 06/09/17 10:32 Reevaluation #2: The patient is doing better at this time. His weakness is improved and he is less confused. He is up at the side of the bed and appears to have much more energy. 06/09/17 11:03 Reevaluation #3: I did discuss the case with Dr. Croft and he does accept the patient to [facility]. 06/09/17 11:41 Medical Decision Making - Data Complexity MDM Data: Labs Ordered and/or Reviewed, X-Ray Ordered and/or Reviewed, EKG Ordered and/or Reviewed - Lab Data Result diagrams: 06/09/17 08:45 06/09/17 08:45 - EKG Data -: EKG Interpreted by Me EKG: No Acute Changes, Unchanged From Previous - Radiology Data Radiology results: Report reviewed -: Radiology Exam Interpreted by Myself (CXR: CMG O/W neg. Head CT: No acute changes) Disposition Disposition: Admit Clinical Impression: Hepatic encephalopathy Disposition: Still a Patient at [facility] Decision to Admit: Admit from ER Decision to Admit Date: 06/09/17 Decision to Admit Time: 11:41 Accepting Physician: Guerda Time Discussed w/Accepting Physician: :41 Condition: (2) Stable Time of Disposition: 11:41 Quality - Quality Measures Quality Measures: N/A - Blood Pressure Screening View Details: Yes Does Patient Have Any of the Following: No Blood Pressure Classification: Normal BP Reading Systolic Measurement: 115 Diastolic Measurement: 78 Screening for High Blood Pressure: < Normal BP, F/U Not Required > [G8783]
[2017-06-09 09:12] LABS: BASO % 0.9 % (0-6); EOS % 2.1 % (0-6); GRAN % 59.6 % (47-80); HEMATOCRIT 41.6 % (42.0-52.0); HEMOGLOBIN 14.8 gm/dl (14.0-18.0); MEAN CELL VOLUME 97.4 fl (81-97); MEAN CORPUSCULAR HGB CONC 35.6 g/dl (32-36); MEAN PLATELET VOLUME 10.7 fl (7.4-10.4); MONO % 8.4 % (0-9); PLATELET COUNT 73 K/uL (130-400); RED BLOOD COUNT 4.27 M/uL (4.40-5.70); WHITE BLOOD COUNT W/O DIFF 3.4 K/uL (4.2-12.2)
[2017-06-09 09:13] LABS: MEAN CORPUSCULAR HEMOGLOBIN 34.6 pg (27-33)
[2017-06-09 09:26] LABS: CKMB 2.7 ng/mL (<6.73)
[2017-06-09 09:29] LABS: INR 1.2; PARTIAL THROMBOPLASTIN TIME 31.9 SECONDS (24.5-39.1); PROTHROMBIN TIME (PATIENT) 13.1 SECONDS (9.5-12.1)
[2017-06-09 09:32] LABS: BLOOD UREA NITROGEN 16 mg/dL (8-23); CREATININE 0.9 mg/dL (0.7-1.2); EST GLOMERULAR FILTRATION RATE > 60 mL/min
[2017-06-09 09:33] LABS: TOTAL PROTEIN 7.8 g/dL (6.6-8.7)
[2017-06-09 09:35] LABS: GLUCOSE,RANDOM 183 mg/dL (74-109)
[2017-06-09 09:38] LABS: ALB/GLOB RATIO 0.8 (1.1-1.8); ALBUMIN 3.4 g/dL (4.0-5.0); ALKALINE PHOSPHATASE 126 U/L (40-129); ALT/SGPT 53 U/L (<41); AST/SGOT 70 U/L (10.0-50.0); CREATINE PHOSPHOKINASE 112 U/L (39-308)
[2017-06-09] MEDS ORDERED: 0.9 % SODIUM CHLORIDE 1,000 ML BAG IV ONE (10:20)
[2017-06-09] MEDS ORDERED: LACTULOSE 20 GM/30 ML UDC PO ONE (11:13)
[2017-06-09] MEDS ORDERED: ONDANSETRON HCL IV 4 MG/2 ML VIAL IVP PRN (12:41)
[2017-06-09] MEDS ORDERED: GLIMEPIRIDE 2 MG TABLET PO SCH (16:30)
[2017-06-09] MEDS: LACTULOSE 20 GM/30 ML UDC PO SCH ×2 (17:06→22:10)
--- NOTE | 2017-06-09 19:25 | CT SCAN REPORT ---
EXAM: CT SCAN HEAD WO CONTRAST HISTORY: MENTAL STATUS CHANGES. TECHNIQUE: Sequential axial images were obtained from the foramen magnum to the vertex without contrast administration. FINDINGS: Brain volume is normal. No large territorial infarct, hemorrhage, mass effect, or midline shift. No extraaxial fluid collection. The orbits, paranasal sinuses, and mastoid air cells are normal. There is ectasia of the intracranial vasculature. IMPRESSION: NO ACUTE INTRACRANIAL ABNORMALITY IS APPRECIATED. JOB NUMBER: [id number] [facility]
--- NOTE | 2017-06-09 19:27 | RADIOLOGY REPORT ---
EXAM: CHEST 2 VIEWS HISTORY: DIFFICULTY IN BREATHING. TECHNIQUE: Frontal and lateral views of the chest were performed. FINDINGS: Cardiomegaly. No pulmonary vascular congestion. No infiltrate or pleural effusion. The osseous structures are normal. IMPRESSION: CARDIOMEGALY. NO ACUTE PROCESS. JOB NUMBER: [id number] MTDD
[2017-06-09] MEDS ORDERED: PRAVASTATIN SODIUM 40 MG PO SCH (22:00)
[2017-06-09] MEDS: ENOXAPARIN 40 MG/0.4 ML SYR SQ SCH (22:12)
[2017-06-09] MEDS: ENOXAPARIN 80 MG/0.8 ML SYR SQ SCH (22:13)
[2017-06-10 06:37] LABS: BASO % 1.6 % (0-6); EOS % 2.6 % (0-6); HEMATOCRIT 35.7 % (42.0-52.0); HEMOGLOBIN 12.8 gm/dl (14.0-18.0); LYMPH % 40.4 % (16-45); MEAN CELL VOLUME 97.3 fl (81-97); MEAN CORPUSCULAR HGB CONC 35.9 g/dl (32-36); MEAN PLATELET VOLUME 10.5 fl (7.4-10.4); MONO % 9.4 % (0-9); PLATELET COUNT 61 K/uL (130-400); RED BLOOD COUNT 3.67 M/uL (4.40-5.70); RED CELL DISTRIBUTION WIDTH 15.8 % (11.5-14.5); WHITE BLOOD COUNT W/O DIFF 3.1 K/uL (4.2-12.2)
[2017-06-10 06:39] LABS: MEAN CORPUSCULAR HEMOGLOBIN 34.8 pg (27-33)
[2017-06-10 06:50] LABS: ALB/GLOB RATIO 0.8 (1.1-1.8); ALBUMIN 2.8 g/dL (4.0-5.0); ALKALINE PHOSPHATASE 102 U/L (40-129); ALT/SGPT 45 U/L (<41); AST/SGOT 55 U/L (10.0-50.0); BLOOD UREA NITROGEN 14 mg/dL (8-23); CREATININE 0.7 mg/dL (0.7-1.2); EST GLOMERULAR FILTRATION RATE > 60 mL/min; GLUCOSE,RANDOM 122 mg/dL (74-109); TOTAL PROTEIN 6.2 g/dL (6.6-8.7)
[2017-06-10 06:57] LABS: URINE APPEARANCE CLEAR; URINE BILIRUBIN NEGATIVE (NEGATIVE); URINE BLOOD NEGATIVE (NEGATIVE); URINE COLOR STRAW; URINE GLUCOSE (UA) NEGATIVE (NEGATIVE); URINE KETONE TRACE (NEGATIVE); URINE LEUKOCYTE ESTERASE NEGATIVE (NEGATIVE); URINE NITRITE NEGATIVE (NEGATIVE); URINE PROTEIN NEGATIVE (NEGATIVE)
--- NOTE | 2017-06-10 07:10 | History and Physical Report ---
DATE: 06/09/2017 CHIEF COMPLAINT: Confusion. HISTORY OF PRESENT ILLNESS: This 76-year-old male states he was confused, not able to ambulate properly. He was crawling on the floor and he was not making sense. He was brought to the emergency department for evaluation. Dr. Friedman evaluated the patient with a diagnosis of hepatic encephalopathy and he has had long-standing liver cirrhosis. First episode of hepatic encephalopathy. He was given lactulose in the emergency department 20 g. He is doing much better at this time. The patient denies any blood in his stools. Denies any vomiting of blood. He is on Lovenox shots twice a day for portal vein thrombosis. PAST MEDICAL HISTORY: Chronic atrial fibrillation, cirrhosis of the liver. He did have ascites which has resolved at this time. Type 2 diabetes mellitus without complication with long-term use of insulin, history of ITP, hypercholesterolemia, portal vein thrombosis. MEDICATIONS: 1. Lovenox 120 mg b.i.d. 2. Amaryl 4 mg 2 times a day; breakfast and dinner. 3. Protonix 40 mg daily. 4. Lantus 80 units a day. 5. Pravastatin 40 mg daily. 6. Spironolactone 100 mg daily. 7. Furosemide 40 mg daily. 8. Tylenol 500 p.r.n. This will be adjusted down because of his liver disease. 9. Vitamin C 500 mg a day. 10. Aspirin 81 mg a day. 11. Calcium with vitamin D once a day. 12. Lovastatin 25 mg daily. 13. Probiotics. 14. Nitroglycerin p.r.n. 15. Vitamin B12, 1000 mcg a day. ALLERGIES: PENICILLIN. PAST SURGICAL HISTORY: Appendectomy, tonsillectomy, colonoscopy, carpal tunnel syndrome. FAMILY/PSYCHOSOCIAL HISTORY: Former smoker. No alcohol or drug use. Father had cancer. No other significant family history. REVIEW OF SYSTEMS: HEENT: No upper respiratory infection symptoms, cough, cold, or congestion. Cardiovascular: No chest pain, palpitations, or arrhythmia. Respiratory: No cough, cold, or congestion. Gastrointestinal: No nausea, vomiting, diarrhea, black stools, or bloody stools. Genitourinary: No dysuria, hematuria, frequency, or burning on urination. Musculoskeletal: No joint or bone abnormalities. Neurological: Confusion. Not able to make sense. Not able to ambulate in coordination. Endocrine: He has diabetes mellitus with insulin use, type 2. Integument: No rash, ulcers, change in moles, or yellow skin. PHYSICAL EXAMINATION: VITALS: Height 6 feet 2 inches, weight 252 pounds. Temperature 97.9, pulse 71, blood pressure 115/78, respiratory rate 18, pulse ox 97% on room air. HEENT: Pupils are equal, round, and reactive to light and accommodation. Extraocular muscles are intact. Throat is clear. Nose is clear. Tympanic membranes are paredes. NECK: Supple. No jugular venous distention. No hepatojugular reflux. No carotid bruits. Thyroid is smooth. CARDIOVASCULAR: Irregular rate and rhythm in atrial fibrillation. RESPIRATORY: Breath sounds equal bilaterally. ABDOMEN: Soft, nontender. No hepatosplenomegaly, no masses, no tenderness. Bowel sounds are active. EXTREMITIES: No pitting edema. No cyanosis, no clubbing. Full range of motion. Peripheral pulses are good. BREASTS: Normal male breasts. RECTAL: Exam done at bedside. Brown stool. Hemoccult sent to the lab for analysis. GENITALIA: Normal male genitalia. NEUROLOGIC: Cranial nerves II-XII intact. No gross defects. Sensation normal, strength normal. Deep tendon reflexes equal bilaterally with Babinski negative. MENTAL STATUS: Alert and oriented x3. IMPRESSION: 1. Hepatic encephalopathy. 2. Cirrhosis of the liver, fatty infiltrative liver disease. 3. Chronic atrial fibrillation. 4. Type 2 diabetes mellitus with insulin use. 5. History of idiopathic thrombocytopenic purpura. 6. Hypercholesterolemia. 7. Portal vein thrombosis. PLAN: Lactulose 20 g 3 times a day until he has 2-3 loose stools a day. Continue his home medications. Check his sugars 4 times a day. Total bilirubin 2.2, AST 70, ALT 53. DIAGNOSIS: Hepatic encephalopathy. INPATIENT CERTIFICATION: Admit to inpatient care. Based on my medical assessment, after consideration of patient's risk factors, age, comorbidities, and patient's presenting symptoms and acuity, I expect that this patient will remain in the hospital greater than or equal to 2 midnights and that the services needed warrant inpatient care because of hepatic encephalopathy. Estimated length of stay is 3 days. The patient may reasonably be expected to be discharged or transferred to a hospital within 96 hours after admission to [facility]. Services needed are cardiac monitoring, neuro evaluations, and lactulose. I certify that my determination is in accordance with my understanding of Medicare requirements for reasonable and necessary inpatient services. JONATHAN
[2017-06-10] MEDS ORDERED: LACTULOSE 20 GM/30 ML UDC PO PRN (08:14)
[2017-06-10] MEDS: BUMETANIDE 1 MG TABLET PO SCH (09:27)
[2017-06-10] MEDS: SPIRONOLACTONE 25 MG TAB PO SCH (09:27)
[2017-06-10] MEDS: LOSARTAN POTASSIUM 25 MG TABLET PO SCH (09:29)
[2017-06-10] MEDS: ENOXAPARIN 80 MG/0.8 ML SYR SQ SCH ×2 (09:32→21:14)
[2017-06-10] MEDS: ENOXAPARIN 40 MG/0.4 ML SYR SQ SCH ×2 (09:32→21:14)
[2017-06-10] MEDS: LEVEMIR FLEXTOUCH 100 UNIT/ML INSULIN PEN SQ SCH (09:39)
[2017-06-10] MEDS ORDERED: PANTOPRAZOLE SODIUM IV 40 MG VIAL IV SCH (10:00)
[2017-06-10] MEDS ORDERED: ASPIRIN 81 MG TABEC PO SCH (10:00)
[2017-06-10] MEDS ORDERED: INSULIN GLARGINE HUM REC ANLOG 1 UNIT SQ SCH (10:00)
[2017-06-10] MEDS: PANTOPRAZOLE SODIUM 40 MG TABLET PO SCH (10:45)
[2017-06-10] MEDS: LACTULOSE 20 GM/30 ML UDC PO SCH ×2 (12:32→18:12)
[2017-06-10] MEDS: 0.9 % SODIUM CHLORIDE 10ML SYR IVP SCH (12:50)
[2017-06-11] MEDS: LACTULOSE 20 GM/30 ML UDC PO SCH ×3 (00:15→12:11)
[2017-06-11] MEDS: 0.9 % SODIUM CHLORIDE 10ML SYR IVP SCH (00:17)
[2017-06-11] MEDS: PANTOPRAZOLE SODIUM 40 MG TABLET PO SCH (06:14)
[2017-06-11] MEDS: BUMETANIDE 1 MG TABLET PO SCH (10:17)
[2017-06-11] MEDS: SPIRONOLACTONE 25 MG TAB PO SCH (10:17)
[2017-06-11] MEDS: LOSARTAN POTASSIUM 25 MG TABLET PO SCH (10:18)
[2017-06-11] MEDS: LEVEMIR FLEXTOUCH 100 UNIT/ML INSULIN PEN SQ SCH (10:20)
[2017-06-11] MEDS: ENOXAPARIN 80 MG/0.8 ML SYR SQ SCH (10:21)
[2017-06-11] MEDS: ENOXAPARIN 40 MG/0.4 ML SYR SQ SCH (10:21)
--- NOTE | 2017-06-11 12:03 | Discharge Note ---
VTE H&P Assessment - Risk for VTE Risk for VTE: Yes Risk Level: Moderate Risk Assessment Date: 06/09/17 Risk Assessment Time: 10:00 VTE Orders Placed or Will Be Placed: Yes Discharge Medications - Discharge Medications Prescriptions: Lactulose 20 gm PO Q6HR #1600 ml Glimepiride [Amaryl] 2 mg PO BID #60 tablet Torsemide [Demadex] 40 mg PO DAILY #60 tablet Home Medications: Ambulatory Orders Losartan Potassium [Cozaar] 12.5 mg PO DAILY 04/15/17 [Last Taken 05/23/17] Pravastatin Sodium [Pravachol] 40 mg PO QHS 04/15/17 [Last Taken 05/23/17] Spironolactone [Aldactone] 100 mg PO DAILY 04/15/17 [Last Taken 05/23/17] Enoxaparin Sodium [Lovenox] 120 mg SQ BID 05/24/17 [Last Taken 05/23/17] Pantoprazole Sodium 40 mg PO DAILY 06/09/17 [Last Taken Unknown] Glimepiride [Amaryl] 2 mg PO BID #60 tablet 06/11/17 [Last Taken Unknown] Insulin Glargine,Hum.rec.anlog [Lantus] 60 unit SQ DAILY #0 06/11/17 [Last Taken 06/09/17 60 units] Lactulose 20 gm PO Q6HR #1600 ml 06/11/17 [Last Taken Unknown] Torsemide [Demadex] 40 mg PO DAILY #60 tablet 06/11/17 [Last Taken Unknown] Discharge Note - Date Date of Discharge Note: 06/11/17 Condition: (2) Stable Instructions: Hepatic Encephalopathy (DC), Thrombocytopenia (DC) Additional Instructions: follow up with Dr. Croft on friday in am check glucose four times a day before meals and bedtime and write down the values stop tylenol lactulose 30 ml four times a day and the goal is to have two BMs per day decrease lantus to 60 units per day in morning decrease amaryl(glimepiride) to 2 mg before breakfast and dinner if glucose is less than 70 don't use stop aspirin stop multiple vitamines decrease losartan to 12.5 mg per day one half of 25 mg Prescriptions: Lactulose 20 gm PO Q6HR #1600 ml Glimepiride [Amaryl] 2 mg PO BID #60 tablet Torsemide [Demadex] 40 mg PO DAILY #60 tablet Referrals: Jed Croft D.O. [Primary Care Provider] - Forms: Patient Portal Access Activity at Discharge: Increase Activity as Tolerated Diet at Discharge: Diabetic Diet
--- NOTE | 2017-06-11 13:30 | Discharge Summary ---
DATE: 06/11/2017 DISCHARGE DIAGNOSES: 1. Hepatic encephalopathy. 2. Cirrhosis of the liver, fatty infiltrative liver disease. 3. Chronic atrial fibrillation. 4. Portal vein thrombosis and on Lovenox 120 mg b.i.d. Insurance is having some problems funding this for the 4 or 5 months he needs to be on this. He may have to go to low-dose Coumadin with very close followup. 5. Type 2 diabetes mellitus with insulin use. 6. History of idiopathic thrombocytopenia purpura. 7. Hypercholesterolemia. 8. Chronic atrial fibrillation. ATTENDING PHYSICIAN: Jed Croft DO REASON FOR HOSPITALIZATION: Confusion. This 76-year-old presented with confusion, unable to ambulate properly, he was crawling on the floor, he was not making sense. He was brought to the emergency department, evaluated by Dr. Friedman, found to have hepatic encephalopathy with ammonia level being high. He has a long-standing liver cirrhosis but never had hepatic encephalopathy before. He recently was in [facility] and was diagnosed with a portal vein thrombosis and is on Lovenox twice a day. He was given lactulose in the emergency department and his mental status started to clear almost immediately. He denies any blood in his stools. SIGNIFICANT FINDINGS: CT of the head showing no acute intracranial abnormality. Chest x-ray with cardiomegaly. No acute process. Initially his ammonia level was 112. It dropped down the next day to 104. He is doing much better. Initially his WBC was 3400, hemoglobin was 14.8. His PT/INR is 1.2, potassium 4.1, sodium 139, chloride 102, BUN 16, creatinine 0.9. His sugars have been running 206, 301, 179. They were being conservative on his glucose so he would not have a low sugar reaction. That will need to be adjusted up slightly when he goes home. His liver enzymes, AST initially was 70, dropped to 55. ALT was 53 and dropped to 45. Alkaline phosphatase was 106. His CK-MB was 2.7, troponin T was less than 0.010. UA negative. Specific gravity was 1.025. THERAPY PROVIDED: The patient was given lactulose and cautious observation of fluids. He did have a stool yesterday and he is passing lots of gas today. His lactulose was 20 g 4 times a day. HOSPITAL COURSE: Improved. CONDITION ON DISCHARGE: Much improved. DISCHARGE INSTRUCTIONS: Follow up with Dr. Croft on Friday. Continue his other appointments with Dr. Ye of GI and his hematology appointment. No Tylenol. Stop the aspirin. His adjustments on his medications. He is to check his glucose 4 times a day before meals and at bedtime. If his levels go below 70, he is to hold his Amaryl and decrease his Lantus. We will start the Lantus off at 60 units a day in the morning, decrease the Amaryl to 2 mg before breakfast and dinner, maybe even go lower than that. Stop the multivitamins. Decrease the losartan 12.5 mg daily because his blood pressure was running low at 104/60. MTDD
== END 2017-06-11 14:00 | disposition home or self-care (01) | DRG 442 ==
LOC: ER 08:37 → MEDSURG 12:20
PROVIDERS: ADMIT Emergency Medicine; ATTEND Emergency Medicine
DX: R53.1 Weakness (principal); D69.6 Thrombocytopenia, unspecified; I10 Essential (primary) hypertension; K72.90 Hepatic failure, unspecified without coma; D69.3 Immune thrombocytopenic purpura; K74.60 Unspecified cirrhosis of liver; R60.9 Edema, unspecified; Z85.820 Personal history of malignant melanoma of skin; K76.0 Fatty (change of) liver, not elsewhere classified; I48.2 Chronic atrial fibrillation; Z79.01 Long term (current) use of anticoagulants; E11.9 Type 2 diabetes mellitus without complications; Z79.4 Long term (current) use of insulin; E78.00 Pure hypercholesterolemia, unspecified; Z87.891 Personal history of nicotine dependence; Z86.718 Personal history of other venous thrombosis and embolism
CPT/HCPCS: 36416; 70450; 71046; 80053; 81003; 82140; 82550; 82553; 82948; 84484; 85025; 85610; 85730; 93005; 93010; 99233; 99239; 99285; J1650; J7030

== ENCOUNTER 2017-06-14 21:31 | Emergency (ER) | payer MEDICARE ==
[2017-06-14 22:29] LABS: BLOOD UREA NITROGEN 16 mg/dL (8-23); CREATININE 0.7 mg/dL (0.7-1.2); EST GLOMERULAR FILTRATION RATE > 60 mL/min; TOTAL PROTEIN 6.7 g/dL (6.6-8.7)
[2017-06-14 22:31] LABS: GLUCOSE,RANDOM 198 mg/dL (74-109)
[2017-06-14 22:32] LABS: HEMATOCRIT 33.6 % (42.0-52.0); MEAN CELL VOLUME 97.1 fl (81-97); MEAN CORPUSCULAR HGB CONC 35.7 g/dl (32-36); PLATELET COUNT 54 K/uL (130-400); RED BLOOD COUNT 3.46 M/uL (4.40-5.70); RED CELL DISTRIBUTION WIDTH 15.7 % (11.5-14.5); WHITE BLOOD COUNT W/O DIFF 2.9 K/uL (4.2-12.2)
[2017-06-14 22:33] LABS: INR 1.3; MEAN CORPUSCULAR HEMOGLOBIN 34.6 pg (27-33); PARTIAL THROMBOPLASTIN TIME 42.2 SECONDS (24.5-39.1); PROTHROMBIN TIME (PATIENT) 13.9 SECONDS (9.5-12.1)
[2017-06-14 22:34] LABS: ALB/GLOB RATIO 0.9 (1.1-1.8); ALBUMIN 3.2 g/dL (4.0-5.0); ALKALINE PHOSPHATASE 116 U/L (40-129); ALT/SGPT 47 U/L (<41); AMMONIA 165 umol/L (16.0-60.0); AST/SGOT 48 U/L (10.0-50.0)
[2017-06-14 22:35] LABS: LACTIC ACID 3.4 mmol/L (0.5-2.2)
[2017-06-14] MEDS ORDERED: LACTULOSE 20 GM/30 ML UDC PO ONE (22:37)
[2017-06-14 22:40] LABS: PLATELET ESTIMATE DECREASED (NORMAL)
--- NOTE | 2017-06-14 22:52 | Emergency Department Record ---
History of Present Illness - General Chief Complaint: Confusion Stated Complaint: ALTERED MENTAL STATE Time Seen by Provider: 06/14/17 22:08 Source: Patient Mode of Arrival: Wheelchair Limitations: Altered mental status - History of Present Illness Initial Comments: pt became very confused this afternoon. his suspects he has a high ammonia level again. he was recently admitted for the same. he has a portal vein thrombosis and is on daily lovenox. he has itp. MD Complaint: Altered mental status, Decreased responsiveness Onset/Timin -: Hour(s) Severity: Moderate Consistency: Constant, Getting worse Context: Diabetes, History of similar presentation, Other Associated Symptoms: Other - [place] Coma Scale Eye Response: (4) Open spontaneously Motor Response: (4) Withdraws to pain Verbal Response: (4) Confused conversation Jeannine Total: 12 - Symptoms of Stroke Symptoms of stroke: Unable to Think Clearly - Related Data Previous Rx's Medication Instructions Recorded Glimepiride [Amaryl] 2 mg PO BID #60 tablet 06/11/17 Insulin Glargine,Hum.rec.anlog 60 unit SQ DAILY #0 06/11/17 [Lantus] Lactulose 20 gm PO Q6HR #1600 ml 06/11/17 Torsemide [Demadex] 40 mg PO DAILY #60 tablet 06/11/17 Allergies Allergy/AdvReac Type Severity Reaction Status Date / Time Penicillins Allergy RASH Verified 04/15/17 21:00 Travel Screening - Travel/Exposure Within Last 30 Days Have you traveled within the last 30 days?: No Review of Systems ROS unobtainable: Due to mental status Past Medical History - SOCIAL HISTORY Smoking Status: Former smoker Alcohol Use: None Drug Use: None - RESPIRATORY Hx Respiratory Disorders: No - CARDIOVASCULAR Hx Cardio Disorders: Yes Hx Deep Vein Thrombosis: Yes Hx Edema: Yes Hx Hypertension: Yes Comment:: HIGH CHOLESTEROL - NEURO Hx Neuro Disorders: No - GI Hx GI Disorders: Yes Hx Diverticulitis: Yes Hx Liver Disease: Yes (?) Comment:: Port Vein Thrombosis - Hx Genitourinary Disorders: No - ENDOCRINE Hx Endocrine Disorders: Yes Hx Diabetes: Yes - MUSCULOSKELETAL Hx Musculoskeletal Disorders: No - PSYCH Hx Psych Problems: No - HEMATOLOGY/ONCOLOGY Hx Hematology/Oncology Disorders: Yes 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 negative: External canal tenderness Nasal Exam: Normal inspection. negative: Discharge, Sinus tenderness Mouth exam: Normal external inspection, Tongue normal Teeth exam: Normal inspection. negative: Dental caries Throat exam: Normal inspection. negative: Tonsillar erythema, Tonsillar exudate - Neck Neck exam: Normal inspection, Full ROM. negative: Tenderness - Respiratory Respiratory exam: Normal lung sounds bilaterally. negative: Respiratory distress - Cardiovascular Cardiovascular Exam: Regular rate, Normal rhythm, Normal heart sounds - GI/Abdominal GI/Abdominal exam: Soft, Normal bowel sounds. negative: Tenderness - Rectal Rectal exam: Deferred - exam: Deferred - Extremities Extremities exam: Normal inspection, Full ROM, Normal capillary refill. negative: Tenderness - Back Back exam: Reports: Normal inspection, Full ROM. Denies: Muscle spasm, Rash noted, Tenderness - Neurological Neurological exam: Alert, CN II-XII intact - Psychiatric Psychiatric exam: Normal affect, Normal mood - Skin Skin exam: Dry, Intact, Normal color, Warm Course Vital Signs 06/14/17 21:54 Temperature 98.2 F Pulse Rate [ 63 Pulse Ox Probe] Respiratory 20 Rate Blood Pressure 122/66 [Left Arm] Pulse Ox 100 Medical Decision Making - Lab Data Result diagrams: 06/14/17 22:10 06/14/17 22:10 Lab Results 06/14/17 06/14/17 06/14/17 Range/Units 22:10 22:10 22:10 WBC 2.9 L (4.2-12.2) K/uL RBC 3.46 L (4.40-5.70) M/uL Hgb 12.0 L (14.0-18.0) gm/dl Hct 33.6 L (42.0-52.0) % MCV 97.1 H (81-97) fl MCH 34.6 H (27-33) pg MCHC 35.7 (32-36) g/dl RDW 15.7 H (11.5-14.5) % Plt Count 54 L (130-400) K/uL MPV 11.0 H (7.4-10.4) fl Neutrophils % 48.0 (47-80) % Eosinophils % Not Reportable Basophils % Not Reportable Lymphocytes 43.0 (16-45) % Monocytes 8.0 (0-9) % Platelet Estimate Decreased (NORMAL) RBC Morphology Normal Eosinophil Count 1.0 (0-6) % PT 13.9 H (9.5-12.1) SECONDS INR 1.3 APTT 42.2 H (24.5-39.1) SECONDS Sodium 134 L (136-145) mmol/L Potassium 4.1 (3.4-4.5) mmol/L Chloride 97 L (98-107) mmol/L Carbon Dioxide 25.0 (22-29) mmol/L Anion Gap 12.0 (7-16) BUN 16 (8-23) mg/dL Creatinine 0.7 (0.7-1.2) mg/dL Estimated GFR > 60 mL/min Random Glucose 198 H (74-109) mg/dL Lactic Acid 3.4 H (0.5-2.2) mmol/L Calcium 8.2 L (8.8-10.2) mg/dL Total Bilirubin 1.50 H (0.2-1.0) mg/dL AST 48 (10.0-50.0) U/L ALT 47 H (<41) U/L Alkaline Phosphatase 116 (40-129) U/L Ammonia 165 H (16.0-60.0) umol/L Total Protein 6.7 (6.6-8.7) g/dL Albumin 3.2 L (4.0-5.0) g/dL Globulin 3.5 (1.4-4.8) gm/dL Albumin/Globulin Ratio 0.9 L (1.1-1.8) Disposition Disposition: Transfer Clinical Impression: Hepatic coma/encephalopathy Disposition: Acute Care Hospital Transfer Transfer To: [facility] Reason For Transfer: hepatic encephalopathy coma Accepting Physician: dr sweet Time Discussed w/Accepting Physician: 00:10 Forms: Patient Portal Access Quality - Quality Measures Quality Measures: N/A - Blood Pressure Screening Does Patient Have Any of the Following: No Blood Pressure Classification: Normal BP Reading Systolic Measurement: 118 Diastolic Measurement: 63 Screening for High Blood Pressure: < Normal BP, F/U Not Required > [G8783]
--- NOTE | 2017-06-16 07:39 | CT SCAN REPORT ---
EXAM: CT OF THE HEAD WITHOUT CONTRAST HISTORY: ALTERED MENTAL STATUS, MEMORY LOSS AND SPEECH DISTURBANCE. CONFUSION. TECHNIQUE: Routine noncontrast CT images of the head were obtained. Comparison: 06/09/17. FINDINGS: The ventricles, basal cisterns, and sulci are of normal size, shape and configuration. No midline shift or mass effect. There is periventricular hypoattenuation excentric to the centrum semiovale most consistent with chronic microvascular ischemia. No evidence for acute ischemia. No intracranial mass or hemorrhage. Atherosclerotic calcifications are present. Mild scattered paranasal sinus mucosal thickening. Trace fluid right mastoid air cells. IMPRESSION: 1. NO ACUTE INTRACRANIAL ABNORMALITY. 2. SENESCENT CHANGES. 3. ATHEROSCLEROTIC CALCIFICATIONS. JOB NUMBER: [id number] [facility]
== END 2017-06-15 00:59 | disposition short-term general hospital (02) ==
LOC: ER 21:31
DX: K72.01 Acute and subacute hepatic failure with coma (principal); E11.9 Type 2 diabetes mellitus without complications; I10 Essential (primary) hypertension; Z87.891 Personal history of nicotine dependence; I48.2 Chronic atrial fibrillation; Z79.01 Long term (current) use of anticoagulants; Z86.718 Personal history of other venous thrombosis and embolism; Z79.4 Long term (current) use of insulin
CPT/HCPCS: 36416; 70450; 80053; 82140; 82948; 83605; 85027; 85610; 85730; 93005; 93010; 99285

== ENCOUNTER 2017-08-07 06:23 | Emergency (ER) | payer MEDICARE ==
[2017-08-07] MEDS ORDERED: ONDANSETRON HCL IV 4 MG/2 ML VIAL IVP ONE (06:34)
[2017-08-07 06:36] LABS: BASO % 0.2 % (0-6); EOS % 1.7 % (0-6); GRAN % 73.4 % (47-80); HEMATOCRIT 37.1 % (42.0-52.0); HEMOGLOBIN 12.9 gm/dl (14.0-18.0); LYMPH % 16.7 % (16-45); MEAN CELL VOLUME 100.3 fl (81-97); MEAN CORPUSCULAR HGB CONC 34.8 g/dl (32-36); MEAN PLATELET VOLUME 10.4 fl (7.4-10.4); PLATELET COUNT 57 K/uL (130-400); RED CELL DISTRIBUTION WIDTH 14.4 % (11.5-14.5); WHITE BLOOD COUNT W/O DIFF 4.6 K/uL (4.2-12.2)
[2017-08-07 06:39] LABS: MEAN CORPUSCULAR HEMOGLOBIN 34.8 pg (27-33)
[2017-08-07] MEDS ORDERED: HYDROMORPHONE HCL 2 MG/ML VIAL IVP ONE (06:44)
[2017-08-07 06:50] LABS: BLOOD UREA NITROGEN 13 mg/dL (8-23); CREATININE 1.1 mg/dL (0.7-1.2); EST GLOMERULAR FILTRATION RATE > 60 mL/min
[2017-08-07 06:53] LABS: GLUCOSE,RANDOM 221 mg/dL (74-109)
[2017-08-07 06:54] LABS: INR 1.3; PROTHROMBIN TIME (PATIENT) 13.6 SECONDS (9.5-12.1)
--- NOTE | 2017-08-07 06:54 | Emergency Department Record ---
History of Present Illness - General Chief Complaint: Abdominal Pain Stated Complaint: R ABD PAIN Time Seen by Provider: 08/07/17 06:38 Source: Patient, Family, Old records reviewed Mode of Arrival: Wheelchair Limitations: No limitations - History of Present Illness Initial Comments: pt here for ruq pain that started in the night. it is sharp and stabbing. it is different then anything he has ever had. he has nausea. he has chronic diarrhea as he is on lactulose. he still has his gallbladder. he has a hx of portal vein thrombosis and hepatic encephalopathy and has been admitted 6 times since may to [facility]. his is a nurse who takes very good care of him and feels his gallbladder is acting up. the pain goes through to his back. MD Complaint: Abdominal pain Onset/Timin -: Hour(s) Location: RUQ Radiation: Back Severity scale (1-10): 9 Quality: Sharp Consistency: Constant Improves With: Nothing Worsens With: Nothing Associated Symptoms: Diarrhea, Nausea - Related Data Home Medications Medication Instructions Recorded Confirmed Last Taken Lactulose 60 ml PO TID 08/07/17 08/07/17 Unknown Rifaximin [Xifaxan] 550 mg PO BID 08/07/17 08/07/17 Unknown Torsemide [Demadex] 20 mg PO DAILY 08/07/17 08/07/17 Unknown Warfarin Sodium [Coumadin] 4 mg PO QPM 08/07/17 08/07/17 Unknown Previous Rx's Medication Instructions Recorded Glimepiride [Amaryl] 2 mg PO BID #60 tablet 06/11/17 Insulin Glargine,Hum.rec.anlog 60 unit SQ DAILY #0 06/11/17 [Lantus] Allergies Allergy/AdvReac Type Severity Reaction Status Date / Time Penicillins Allergy RASH Verified 04/15/17 21:00 Travel Screening - Travel/Exposure Within Last 30 Days Have you traveled within the last 30 days?: No - Travel Symptoms Symptom Screening: None Review of Systems Constitutional: Reports: As per HPI. Denies: Chills, Fever, Malaise, Night sweats, Weakness, Weight change Eyes: Reports: As per HPI. Denies: Eye discharge, Eye pain, Photophobia, Vision change ENT: Reports: As per HPI. Denies: Congestion, Dental pain, Ear pain, Epistaxis , Hearing loss, Throat pain Respiratory: Reports: As per HPI. Denies: Cough, Dyspnea, Hemoptysis, Stridor, Wheezes Cardiovascular: Reports: As per HPI, Arrhythmia. Denies: Chest pain, Dyspnea on exertion, Edema, Murmurs, Orthopnea, Palpitations, Paroxysmal nocturnal dyspnea, Rheumatic Fever, Syncope Endocrine: Reports: As per HPI. Denies: Fatigue, Heat or cold intolerance, Polydipsia, Polyuria Gastrointestinal: Reports: As per HPI, Abdominal pain, Diarrhea, Nausea. Denies : Constipation, Hematemesis, Hematochezia, Melena, Vomiting Genitourinary: Reports: As per HPI. Denies: Dysuria, Frequency, Hematuria, Incontinence, Retention, Testicular pain, Testicular mass, Urgency Musculoskeletal: Reports: As per HPI. Denies: Arthralgia, Back pain, Gout, Joint swelling, Myalgia, Neck pain Skin: Reports: As per HPI. Denies: Bruising, Change in color, Change in hair/ nails, Lesions, Pruritus, Rash Neurological: Reports: As per HPI. Denies: Abnormal gait, Confusion, Headache, Numbness, Paresthesias, Seizure, Tingling, Tremors, Vertigo, Weakness Psychiatric: Reports: As per HPI. Denies: Anxiety, Auditory hallucinations, Depression, Homicidal thoughts, Suicidal thoughts, Visual hallucinations Hematological/Lymphatic: Reports: As per HPI, Blood Clots, Easy bleeding, Easy bruising. Denies: Anemia, Swollen glands Past Medical History - SOCIAL HISTORY Smoking Status: Former smoker - RESPIRATORY Hx Respiratory Disorders: No - CARDIOVASCULAR Hx Cardio Disorders: Yes Hx Deep Vein Thrombosis: Yes Hx Edema: Yes Hx Hypertension: Yes Hx Irregular Heartbeat: Yes (A-fib) Comment:: HIGH CHOLESTEROL - NEURO Hx Neuro Disorders: Yes - GI Hx GI Disorders: Yes Hx Diverticulitis: Yes Hx Liver Disease: Yes (Hepatic Encephalopathy) Comment:: [place] Ve[place] Thrombosis - Hx Genitourinary Disorders: No - ENDOCRINE Hx Endocrine Disorders: Yes Hx Diabetes: Yes - MUSCULOSKELETAL Hx Musculoskeletal Disorders: No - PSYCH Hx Psych Problems: No - HEMATOLOGY/ONCOLOGY Hx Hematology/Oncology Disorders: Yes Hx Blood Disorders: Yes (low platelets; ITP) Comment:: MELANOMA Family Medical History Any Significant Family History?: Yes Hx Cancer: Father Physical Exam - General General Appearance: Alert, Oriented x3, Cooperative, Mild distress - Head Head exam: Normal inspection - Eye Eye exam: Normal appearance, PERRL, EOMI Pupils: Normal accommodation - ENT ENT exam: Normal exam, Mucous membranes moist, Normal external ear exam, Normal orophraynx Ear exam: Normal external inspection. negative: External canal tenderness Nasal Exam: Normal inspection. negative: Discharge, Sinus tenderness Mouth exam: Normal external inspection, Tongue normal Teeth exam: Normal inspection. negative: Dental caries Throat exam: Normal inspection. negative: Tonsillar erythema, Tonsillar exudate - Neck Neck exam: Normal inspection, Full ROM. negative: Tenderness - Respiratory Respiratory exam: Normal lung sounds bilaterally. negative: Respiratory distress - Cardiovascular Cardiovascular Exam: Regular rate, Normal rhythm, Normal heart sounds - GI/Abdominal GI/Abdominal exam: Soft, Normal bowel sounds, Tenderness - Rectal Rectal exam: Deferred - exam: Deferred - Extremities Extremities exam: Normal inspection, Full ROM, Normal capillary refill. negative: Tenderness - Back Back exam: Reports: Normal inspection, Full ROM. Denies: Muscle spasm, Rash noted, Tenderness - Neurological Neurological exam: Alert, CN II-XII intact, Normal gait, Oriented X3 - Psychiatric Psychiatric exam: Normal affect, Normal mood - Skin Skin exam: Dry, Intact, Normal color, Warm Course Vital Signs 08/07/17 06:25 Temperature 98.6 F Pulse Rate 65 Respiratory 18 Rate Blood Pressure 133/77 Pulse Ox 98 - Reevaluation(s) Reevaluation #1: 08/07/17 07:00 care turned over to dr villanueva Reevaluation #2: 08/07/17 07:08 pt is intermittently in afib on monitor Medical Decision Making - Lab Data Result diagrams: 08/07/17 06:34 08/07/17 06:34 Lab Results 08/07/17 Range/Units 06:34 WBC 4.6 (4.2-12.2) K/uL RBC 3.70 L (4.40-5.70) M/uL Hgb 12.9 L (14.0-18.0) gm/dl Hct 37.1 L (42.0-52.0) % MCV 100.3 H (81-97) fl MCH 34.8 H (27-33) pg MCHC 34.8 (32-36) g/dl RDW 14.4 (11.5-14.5) % Plt Count 57 L (130-400) K/uL MPV 10.4 (7.4-10.4) fl Gran % 73.4 (47-80) % Lymphocytes % 16.7 (16-45) % Monocytes % 8.0 (0-9) % Eosinophils % 1.7 (0-6) % Basophils % 0.2 (0-6) % Disposition Forms: Patient Portal Access Quality - Blood Pressure Screening Does Patient Have Any of the Following: No Blood Pressure Classification: Pre-Hypertensive BP Reading Systolic Measurement: 133 Diastolic Measurement: 77 Screening for High Blood Pressure: < Pre-Hypertensive BP, F/U Documented > [ G8950]
[2017-08-07 06:56] LABS: ALB/GLOB RATIO 0.8 (1.1-1.8); ALBUMIN 3.2 g/dL (4.0-5.0); ALKALINE PHOSPHATASE 219 U/L (40-129); ALT/SGPT 34 U/L (<41); AST/SGOT 43 U/L (10.0-50.0); LIPASE 129 U/L (13-60)
--- NOTE | 2017-08-07 07:09 | Emergency Department Record ---
History of Present Illness - General Chief Complaint: Abdominal Pain Stated Complaint: R ABD PAIN Time Seen by Provider: 08/07/17 06:38 Source: Patient, Family, Old records reviewed Mode of Arrival: Wheelchair Limitations: No limitations - History of Present Illness Initial Comments: 77 yo male patient signed out at the time of shift turnover The patient presents with RUQ pain that started in the middle of the night. The pain is sharp and is associated with some nausea. No vomiting. He has chronic unchanged diarrhea from lactulose use for a history of hepatic encephalopathy due to portal vein thrombosis. He has a prior history of appendectomy. No ever. No vomiting. No rash. No chest pain. PCP is Dr Croft. The states that he has generally been considered a non surgical candidate due to a severe cardiomyopathy, ITP, coumadin, encephalopathy from the liver. He has not had similar pain to this in the past. MD Complaint: Abdominal pain Onset/Timin -: Hour(s) Location: RUQ Radiation: Back Severity scale (1-10): 9 Quality: Sharp Consistency: Constant Improves With: Nothing Worsens With: Nothing Associated Symptoms: Diarrhea, Nausea - Related Data Home Medications Medication Instructions Recorded Confirmed Last Taken Lactulose 60 ml PO TID 08/07/17 08/07/17 Unknown Rifaximin [Xifaxan] 550 mg PO BID 08/07/17 08/07/17 Unknown Torsemide [Demadex] 20 mg PO DAILY 08/07/17 08/07/17 Unknown Warfarin Sodium [Coumadin] 4 mg PO QPM 08/07/17 08/07/17 Unknown Previous Rx's Medication Instructions Recorded Glimepiride [Amaryl] 2 mg PO BID #60 tablet 06/11/17 Insulin Glargine,Hum.rec.anlog 60 unit SQ DAILY #0 06/11/17 [Lantus] Allergies Allergy/AdvReac Type Severity Reaction Status Date / Time Penicillins Allergy RASH Verified 04/15/17 21:00 Travel Screening - Travel/Exposure Within Last 30 Days Have you traveled within the last 30 days?: No - Travel Symptoms Symptom Screening: None Review of Systems ROS unobtainable: Other (ROS per Dr Gupta) Constitutional: Reports: As per HPI. Denies: Chills, Fever, Malaise, Night sweats, Weakness, Weight change Eyes: Reports: As per HPI. Denies: Eye discharge, Eye pain, Photophobia, Vision change ENT: Reports: As per HPI. Denies: Congestion, Dental pain, Ear pain, Epistaxis , Hearing loss, Throat pain Respiratory: Reports: As per HPI. Denies: Cough, Dyspnea, Hemoptysis, Stridor, Wheezes Cardiovascular: Reports: As per HPI, Arrhythmia. Denies: Chest pain, Dyspnea on exertion, Edema, Murmurs, Orthopnea, Palpitations, Paroxysmal nocturnal dyspnea, Rheumatic Fever, Syncope Endocrine: Reports: As per HPI. Denies: Fatigue, Heat or cold intolerance, Polydipsia, Polyuria Gastrointestinal: Reports: As per HPI, Abdominal pain, Diarrhea, Nausea. Denies : Constipation, Hematemesis, Hematochezia, Melena, Vomiting Genitourinary: Reports: As per HPI. Denies: Dysuria, Frequency, Hematuria, Incontinence, Retention, Testicular pain, Testicular mass, Urgency Musculoskeletal: Reports: As per HPI. Denies: Arthralgia, Back pain, Gout, Joint swelling, Myalgia, Neck pain Skin: Reports: As per HPI. Denies: Bruising, Change in color, Change in hair/ nails, Lesions, Pruritus, Rash Neurological: Reports: As per HPI. Denies: Abnormal gait, Confusion, Headache, Numbness, Paresthesias, Seizure, Tingling, Tremors, Vertigo, Weakness Psychiatric: Reports: As per HPI. Denies: Anxiety, Auditory hallucinations, Depression, Homicidal thoughts, Suicidal thoughts, Visual hallucinations Hematological/Lymphatic: Reports: As per HPI, Blood Clots, Easy bleeding, Easy bruising. Denies: Anemia, Swollen glands Past Medical History - SOCIAL HISTORY Smoking Status: Former smoker - RESPIRATORY Hx Respiratory Disorders: No - CARDIOVASCULAR Hx Cardio Disorders: Yes Hx Deep Vein Thrombosis: Yes Hx Edema: Yes Hx Hypertension: Yes Hx Irregular Heartbeat: Yes (A-fib) Comment:: HIGH CHOLESTEROL - NEURO Hx Neuro Disorders: Yes - GI Hx GI Disorders: Yes Hx Diverticulitis: Yes Hx Liver Disease: Yes (Hepatic Encephalopathy) Comment:: [place] Ve[place] Thrombosis - Hx Genitourinary Disorders: No - ENDOCRINE Hx Endocrine Disorders: Yes Hx Diabetes: Yes - MUSCULOSKELETAL Hx Musculoskeletal Disorders: No - PSYCH Hx Psych Problems: No - HEMATOLOGY/ONCOLOGY Hx Hematology/Oncology Disorders: Yes Hx Blood Disorders: Yes (low platelets; ITP) Comment:: MELANOMA Family Medical History Any Significant Family History?: Yes Hx Cancer: Father Physical Exam - General General Appearance: Alert, Oriented x3, Cooperative, No acute distress Limitations: No limitations - Head Head exam: Atraumatic, Normal inspection - Eye Eye exam: Normal appearance, PERRL. negative: Scleral icterus - ENT ENT exam: Normal exam, Mucous membranes moist Ear exam: Normal external inspection Nasal Exam: Normal inspection - Neck Neck exam: Normal inspection - Respiratory Respiratory exam: Normal lung sounds bilaterally. negative: Respiratory distress - Cardiovascular Cardiovascular Exam: Regular rate, Irregular rhythm Peripheral Pulses: 2+: Radial (R), Radial (L) - GI/Abdominal GI/Abdominal exam: Soft, Tenderness (tender in the RUQ, remainder of the abdomen is very soft) - Rectal Rectal exam: Deferred - exam: Deferred - Extremities Extremities exam: Pedal edema - Back Back exam: Reports: CVA tenderness (R) - Neurological Neurological exam: Alert, Oriented X3 - Psychiatric Psychiatric exam: Normal affect, Normal mood - Skin Skin exam: Dry, Intact, Normal color, Warm Course Vital Signs 08/07/17 06:25 Temperature 98.6 F Pulse Rate 65 Respiratory 18 Rate Blood Pressure 133/77 Pulse Ox 98 - Reevaluation(s) Reevaluation #1: 08/07/17 07:08 Gall Stones noted on March 2017 US. 08/07/17 07:09 The labs were reviewed No acute changes on the CBC The LFT's are in the normal ranges with Bili at his baseline of 1.5 Lipase elevated at 129 08/07/17 07:10 INR is 1.3 08/07/17 09:16 The patient remains without pain His US was read as sludge in the gallbladder. Ascites. Hepato-splenomegaly as prior. The patient's PC was contacted I discussed with the patient liquid bland diet the next 2-3 days We discussed the very mild increase in the pancreas enzyme and he will need this recheck with Dr Croft He and his were instructed to return immediately if he has any return of pain. 08/07/17 09:19 Dr Croft paged 08/07/17 09:[address] Croft who knows the patient very well. He will closely follow the patient outpatient given he is asymptomatic, no fever, vomiting. He is to call the office for follow up RUBÉN. The patient and agree to the plan and know to be seen immediately if the pain returns. 08/07/17 09:33 I offered outpatient general surgery referral as well. The patient and declined. They will see Dr Croft and defer to his judgment. Medical Decision Making - Lab Data Result diagrams: 08/07/17 06:34 08/07/17 06:34 Lab Results 08/07/17 08/07/17 08/07/17 Range/Units 06:34 06:34 06:34 WBC 4.6 (4.2-12.2) K/uL RBC 3.70 L (4.40-5.70) M/uL Hgb 12.9 L (14.0-18.0) gm/dl Hct 37.1 L (42.0-52.0) % MCV 100.3 H (81-97) fl MCH 34.8 H (27-33) pg MCHC 34.8 (32-36) g/dl RDW 14.4 (11.5-14.5) % Plt Count 57 L (130-400) K/uL MPV 10.4 (7.4-10.4) fl Gran % 73.4 (47-80) % Lymphocytes % 16.7 (16-45) % Monocytes % 8.0 (0-9) % Eosinophils % 1.7 (0-6) % Basophils % 0.2 (0-6) % PT Cancelled INR Cancelled APTT (24.5-39.1) SECONDS Sodium 139 (136-145) mmol/L Potassium 3.8 (3.4-4.5) mmol/L Chloride 100 (98-107) mmol/L Carbon Dioxide 25.0 (22-29) mmol/L Anion Gap 14.0 (7-16) BUN 13 (8-23) mg/dL Creatinine 1.1 (0.7-1.2) mg/dL Estimated GFR > 60 mL/min Random Glucose 221 H (74-109) mg/dL Calcium 8.2 L (8.8-10.2) mg/dL Total Bilirubin 1.50 H (0.2-1.0) mg/dL AST 43 (10.0-50.0) U/L ALT 34 (<41) U/L Alkaline Phosphatase 219 H (40-129) U/L Total Protein 7.0 (6.6-8.7) g/dL Albumin 3.2 L (4.0-5.0) g/dL Globulin 3.8 (1.4-4.8) gm/dL Albumin/Globulin Ratio 0.8 L (1.1-1.8) Lipase 129 H (13-60) U/L 08/07/17 Range/Units 06:34 WBC (4.2-12.2) K/uL RBC (4.40-5.70) M/uL Hgb (14.0-18.0) gm/dl Hct (42.0-52.0) % MCV (81-97) fl MCH (27-33) pg MCHC (32-36) g/dl RDW (11.5-14.5) % Plt Count (130-400) K/uL MPV (7.4-10.4) fl Gran % (47-80) % Lymphocytes % (16-45) % Monocytes % (0-9) % Eosinophils % (0-6) % Basophils % (0-6) % PT 13.6 H INR 1.3 APTT 34.0 (24.5-39.1) SECONDS Sodium (136-145) mmol/L Potassium (3.4-4.5) mmol/L Chloride (98-107) mmol/L Carbon Dioxide (22-29) mmol/L Anion Gap (7-16) BUN (8-23) mg/dL Creatinine (0.7-1.2) mg/dL Estimated GFR mL/min Random Glucose (74-109) mg/dL Calcium (8.8-10.2) mg/dL Total Bilirubin (0.2-1.0) mg/dL AST (10.0-50.0) U/L ALT (<41) U/L Alkaline Phosphatase (40-129) U/L Total Protein (6.6-8.7) g/dL Albumin (4.0-5.0) g/dL Globulin (1.4-4.8) gm/dL Albumin/Globulin Ratio (1.1-1.8) Lipase (13-60) U/L Disposition Disposition: Discharge Clinical Impression: Abdominal pain, Biliary colic Disposition: Home, Self-Care Condition: (1) Good Instructions: Biliary Colic (ED), Abdominal Pain (ED) Additional Instructions: Call Dr Croft to be seen the next available appointment Return if any pain, fever or nausea Very bland low fat diet the next several days Forms: Patient Portal Access Quality - Quality Measures Quality Measures: N/A - Blood Pressure Screening Does Patient Have Any of the Following: Active Dx of HTN Blood Pressure Classification: Pre-Hypertensive BP Reading Systolic Measurement: 133 Diastolic Measurement: 77 Screening for High Blood Pressure: Patient Exclusion, Hx of HTN [G9744]
--- NOTE | 2017-08-08 12:46 | ULTRASOUND REPORT ---
EXAM: EMERGENCY COMPLETE ABDOMEN ULTRASOUND HISTORY: ABDOMINAL PAIN SINCE THIS MORNING, SOME NAUSEA AND VOMITING. TECHNIQUE: Complete real-time ultrasound examination of the abdomen was obtained. Comparison: Complete abdomen ultrasound from earlier this year on 04/08/17. FINDINGS: Much of the pancreas was obscured by overlying bowel gas and not adequately visualized sonographically, although the small amount of pancreas clearly seen appeared unremarkable. The abdominal aorta appeared negative with no aneurysm seen. The IVC was negative as seen. The liver again has a coarsened echogenicity as before and appears to have a finely lobulated outline as before again suggesting cirrhosis. No definite focal hepatic mass or intrahepatic biliary dilatation seen today. Some ascites is noted adjacent to the liver although the amount of ascites seen today appears somewhat less than on the prior study. The right kidney is identified measuring 12.3 cm in length with no hydronephrosis evident. There is probably a tiny cyst only about 1.5 cm in size in the mid portion of the right kidney. The common bile duct was seen and was of normal caliber. On the prior examination a single gallstone appeared to be visualized. On today's examination there is considerable low amplitude echogenic material along the dependent portion of the gallbladder which the car racer noted to move when the patient was placed in different positions consistent with relatively thick sludge. A discreet gallstone was not clearly seen today although small gallstones can be obscured by the presence of sludge. The gallbladder wall again appears somewhat thickened although this can be seen in the presence of ascites. The left kidney is identified measuring about 11.6 cm in length with no hydronephrosis evident. On the prior exam prominent splenomegaly was noted measured at 8.6 x 17.8 x 20 cm in size on the prior study. The splenic size today again appears quite enlarged measuring at about 8.8 x 14.8 x 19 cm. Overall this appears essentially unchanged. No definite focal splenic mass identified. There may be some splenic varices present. IMPRESSION: 1. COARSE PARENCHYMAL ECHOGENICITY OF THE LIVER WITH A FINELY LOBULATED OUTLINE SIMILAR TO BEFORE AGAIN SUGGESTING CIRRHOSIS. 2. SOME ASCITES EVIDENT ALTHOUGH LESS THAN APPARENT BACK ON 04/08/17. 3. APPARENT PROMINENT SLUDGE IN THE GALLBLADDER, CONSIDERABLY MORE PRONOUNCED THAN ON THE PRIOR STUDY. THE PREVIOUSLY SEEN GALLSTONE IS NOT CLEARLY DEMONSTRATED TODAY, BUT SENSITIVITY FOR RECOGNITION OF CHOLELITHIASIS IS REDUCED IN THE PRESENCE OF SLUDGE. 4. MARKED SPLENOMEGALY SIMILAR TO BEFORE WITH NO FOCAL SPLENIC MASS EVIDENT. JOB NUMBER: [id number] MTDD
== END 2017-08-07 09:40 | disposition home or self-care (01) ==
LOC: ER 06:23
DX: K80.50 Calculus of bile duct without cholangitis or cholecystitis without obstruction (principal); R06.02 Shortness of breath; R11.0 Nausea; R19.7 Diarrhea, unspecified; R10.11 Right upper quadrant pain; I42.9 Cardiomyopathy, unspecified; I48.91 Unspecified atrial fibrillation; I10 Essential (primary) hypertension; Z79.01 Long term (current) use of anticoagulants; Z87.891 Personal history of nicotine dependence
CPT/HCPCS: 76700; 80053; 83605; 83690; 85025; 85610; 85730; 93005; 93010; 96374; 96375; 99284; J2405

== ENCOUNTER 2017-08-11 09:52 | Emergency (ER) | payer MEDICARE ==
[2017-08-11 11:01] LABS: URINE APPEARANCE CLEAR; URINE BILIRUBIN NEGATIVE (NEGATIVE); URINE BLOOD NEGATIVE (NEGATIVE); URINE COLOR YELLOW; URINE GLUCOSE (UA) NEGATIVE (NEGATIVE); URINE KETONE NEGATIVE (NEGATIVE); URINE LEUKOCYTE ESTERASE MODERATE (NEGATIVE); URINE NITRITE POSITIVE (NEGATIVE); URINE PROTEIN NEGATIVE (NEGATIVE)
--- NOTE | 2017-08-11 11:03 | Emergency Department Record ---
History of Present Illness - General Chief complaint: Pain Stated complaint: KIDNEY STONE Time Seen by Provider: 08/11/17 10:52 Source: Patient, Family, RN notes reviewed Mode of Arrival: Ambulatory - History of Present Illness Initial comments: suprapubic abdominal pain intermittent for 3 days and his stools are loose because of lactulose and cirrhosis of the liver. 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 suprapubic pain is intermittent with urination Onset/Timin -: Days(s) History of Same: Yes Severity scale (1-10): 4 Quality: Burning Consistency: Intermittent Improves with: Nothing Worsens with: Nothing - Related Data Previous Rx's Medication Instructions Recorded Glimepiride [Amaryl] 2 mg PO BID #60 tablet 06/11/17 Insulin Glargine,Hum.rec.anlog 60 unit SQ DAILY #0 06/11/17 [Lantus] Sulfamethoxazole/Trimethoprim 1 each PO BID #20 tablet 08/11/17 [Bactrim Ds Tablet] Tamsulosin HCl [Flomax] 0.4 mg PO DAILY #30 cap.er.24h 08/11/17 Allergies Allergy/AdvReac Type Severity Reaction Status Date / Time Penicillins Allergy RASH Verified 08/11/17 10:10 Travel Screening - Travel/Exposure Within Last 30 Days Have you traveled within the last 30 days?: No - Travel/Exposure Within Last Year Have you traveled outside the [place] in the last year?: No - Additonal Travel Details Have you been exposed to anyone with a communicable illness?: No - Travel Symptoms Symptom Screening: None Review of Systems Reviewed: No additional complaints except as noted below Constitutional: Reports: As per HPI. Denies: Chills, Fever, Malaise, Night sweats, Weakness, Weight change Eyes: Reports: As per HPI. Denies: Eye discharge, Eye pain, Photophobia, Vision change ENT: Reports: As per HPI. Denies: Congestion, Dental pain, Ear pain, Epistaxis , Hearing loss, Throat pain Respiratory: Reports: As per HPI. Denies: Cough, Dyspnea, Hemoptysis, Stridor, Wheezes Cardiovascular: Reports: As per HPI. Denies: Arrhythmia, Chest pain, Dyspnea on exertion, Edema, Murmurs, Orthopnea, Palpitations, Paroxysmal nocturnal dyspnea, Rheumatic Fever, Syncope Endocrine: Reports: As per HPI. Denies: Fatigue, Heat or cold intolerance, Polydipsia, Polyuria Gastrointestinal: Reports: As per HPI, Abdominal pain. Denies: Constipation, Diarrhea, Hematemesis, Hematochezia, Melena, Nausea, Vomiting Genitourinary: Reports: As per HPI. Denies: Dysuria, Frequency, Hematuria, Incontinence, Retention, Testicular pain, Testicular mass, Urgency Musculoskeletal: Reports: As per HPI. Denies: Arthralgia, Back pain, Gout, Joint swelling, Myalgia, Neck pain Skin: Reports: As per HPI. Denies: Bruising, Change in color, Change in hair/ nails, Lesions, Pruritus, Rash Neurological: Reports: As per HPI. Denies: Abnormal gait, Confusion, Headache, Numbness, Paresthesias, Seizure, Tingling, Tremors, Vertigo, Weakness Psychiatric: Reports: As per HPI. Denies: Anxiety, Auditory hallucinations, Depression, Homicidal thoughts, Suicidal thoughts, Visual hallucinations Hematological/Lymphatic: Reports: As per HPI. Denies: Anemia, Blood Clots, Easy bleeding, Easy bruising, Swollen glands Past Medical History - SOCIAL HISTORY Smoking Status: Former smoker Alcohol Use: None Drug Use: None - RESPIRATORY Hx Respiratory Disorders: No - CARDIOVASCULAR Hx Cardio Disorders: Yes Hx Deep Vein Thrombosis: Yes Hx Edema: Yes Hx Hypertension: Yes Hx Irregular Heartbeat: Yes (A-fib) Comment:: HIGH CHOLESTEROL - NEURO Hx Neuro Disorders: Yes - GI Hx GI Disorders: Yes Hx Diverticulitis: Yes Hx Liver Disease: Yes (Hepatic Encephalopathy) Comment:: [place] Thrombosis - Hx Genitourinary Disorders: No - ENDOCRINE Hx Endocrine Disorders: Yes Hx Diabetes: Yes - MUSCULOSKELETAL Hx Musculoskeletal Disorders: No - PSYCH Hx Psych Problems: No - HEMATOLOGY/ONCOLOGY Hx Hematology/Oncology Disorders: Yes Hx Blood Disorders: Yes (low platelets; ITP) Comment:: MELANOMA Family Medical History Any Significant Family History?: No Hx Cancer: Father Physical Exam - General General Appearance: Alert, Oriented x3, Cooperative, No acute distress - Head Head exam: Normal inspection - Eye Eye exam: Normal appearance, PERRL Pupils: Normal accommodation - ENT ENT exam: Normal exam, Mucous membranes moist, Normal external ear exam, Normal orophraynx, TM's normal bilaterally Ear exam: Normal external inspection. negative: External canal tenderness Nasal Exam: Normal inspection. negative: Discharge, Sinus tenderness Mouth exam: Normal external inspection, Tongue normal Teeth exam: Normal inspection. negative: Dental caries Throat exam: Normal inspection. negative: Tonsillar erythema, Tonsillar exudate - Neck Neck exam: Normal inspection, Full ROM. negative: Tenderness - Respiratory Respiratory exam: Normal lung sounds bilaterally. negative: Respiratory distress - Cardiovascular Cardiovascular Exam: Regular rate, Normal rhythm, Normal heart sounds - GI/Abdominal GI/Abdominal exam: Soft, Normal bowel sounds. negative: Tenderness - Rectal Rectal exam: Deferred - exam: Deferred - Extremities Extremities exam: Normal inspection, Full ROM, Normal capillary refill. negative: Tenderness - Back Back exam: Reports: Normal inspection, Full ROM. Denies: Muscle spasm, Rash noted, Tenderness - Neurological Neurological exam: Alert, Normal gait, Oriented X3, Reflexes normal - Psychiatric Psychiatric exam: Normal affect, Normal mood - Skin Skin exam: Dry, Intact, Normal color, Warm Course Vital Signs 08/11/17 10:04 Temperature 98.2 F Pulse Rate 75 Respiratory 16 Rate Blood Pressure 97/58 Pulse Ox 98 - Reevaluation(s) Reevaluation #1: bladder scan 360 ml and he is urinating small amounts at a time 08/11/17 11:56 Medical Decision Making - Lab Data Result diagrams: 08/11/17 10:40 08/11/17 10:40 Disposition Clinical Impression: Dysuria Abdominal pain Qualifiers: Abdominal location: lower abdomen, unspecified Qualified Code(s): R10.30 - Lower abdominal pain, unspecified UTI (urinary tract infection) Qualifiers: Urinary tract infection type: acute cystitis Hematuria presence: without hematuria Qualified Code(s): N30.00 - Acute cystitis without hematuria Disposition: Home, Self-Care Condition: (1) Good Instructions: Abdominal Pain (ED) Additional Instructions: follow up with Dr. Croft on Prescriptions: Sulfamethoxazole/Trimethoprim [Bactrim Ds Tablet] 1 each PO BID #20 tablet Tamsulosin HCl [Flomax] 0.4 mg PO DAILY #30 cap.er.24h Forms: Patient Portal Access Quality - Quality Measures Quality Measures: N/A - Blood Pressure Screening Does Patient Have Any of the Following: No Blood Pressure Classification: Normal BP Reading Systolic Measurement: 97 Diastolic Measurement: 58 Screening for High Blood Pressure: < Normal BP, F/U Not Required > [G8783]
[2017-08-11 11:17] LABS: URINE EPITHELIAL CELLS 0 - 2 (FEW); URINE RBC 0 - 2 (NONE SEEN)
[2017-08-11 11:18] LABS: URINE BACTERIA 2+
[2017-08-11] MEDS ORDERED: TAMSULOSIN HCL 0.4 MG CAP.ER.24H PO ONE (11:37)
[2017-08-11 11:39] LABS: BASO % 0.2 % (0-6); GRAN % 77.1 % (47-80); HEMATOCRIT 34.3 % (42.0-52.0); INR 1.6; LYMPH % 11.2 % (16-45); MEAN CELL VOLUME 98.8 fl (81-97); MEAN PLATELET VOLUME 11.3 fl (7.4-10.4); MONO % 10.5 % (0-9); PROTHROMBIN TIME (PATIENT) 17.4 SECONDS (9.5-12.1); RED BLOOD COUNT 3.47 M/uL (4.40-5.70); RED CELL DISTRIBUTION WIDTH 14.3 % (11.5-14.5); WHITE BLOOD COUNT W/O DIFF 5.7 K/uL (4.2-12.2)
[2017-08-11 11:41] LABS: MEAN CORPUSCULAR HEMOGLOBIN 34.5 pg (27-33); PLATELET COUNT 63 K/uL (130-400)
[2017-08-11 11:42] LABS: BLOOD UREA NITROGEN 16 mg/dL (8-23); CREATININE 1.2 mg/dL (0.7-1.2); EST GLOMERULAR FILTRATION RATE > 60 mL/min
[2017-08-11 11:43] LABS: TOTAL PROTEIN 5.9 g/dL (6.6-8.7)
[2017-08-11 11:45] LABS: GLUCOSE,RANDOM 190 mg/dL (74-109)
[2017-08-11 11:47] LABS: ALBUMIN 2.7 g/dL (4.0-5.0); ALT/SGPT 26 U/L (<41); AST/SGOT 42 U/L (10.0-50.0); BILIRUBIN,DIRECT 0.8 mg/dL (0-0.3)
[2017-08-11 11:48] LABS: ALKALINE PHOSPHATASE 168 U/L (40-129); LIPASE 55 U/L (13-60)
[2017-08-11] MEDS ORDERED: TMP/SMZ 160MG/800MG TAB PO ONE (11:55)
== END 2017-08-11 12:40 | disposition home or self-care (01) ==
LOC: ER 09:52
DX: N30.00 Acute cystitis without hematuria (principal); R10.30 Lower abdominal pain, unspecified; R19.7 Diarrhea, unspecified; I81 Portal vein thrombosis; E11.9 Type 2 diabetes mellitus without complications; I10 Essential (primary) hypertension; Z79.4 Long term (current) use of insulin; Z79.01 Long term (current) use of anticoagulants; Z87.891 Personal history of nicotine dependence; Z51.81 Encounter for therapeutic drug level monitoring
CPT/HCPCS: 80048; 80053; 80076; 81001; 83690; 85025; 85610; 87427; 87493; 99283; 99284

== ENCOUNTER 2017-08-16 01:21 | Observation (INO) | payer MEDICARE ==
[2017-08-16] MEDS ORDERED: PROMETHAZINE HCL 25 MG/ML VIAL IV ONE (01:53)
[2017-08-16] MEDS ORDERED: HYDROMORPHONE HCL 2 MG/ML VIAL IVP ONE (01:54)
[2017-08-16 02:03] LABS: BASO % 0.4 % (0-6); EOS % 1.9 % (0-6); GRAN % 70.8 % (47-80); HEMATOCRIT 33.2 % (42.0-52.0); HEMOGLOBIN 11.7 gm/dl (14.0-18.0); MEAN CELL VOLUME 97.9 fl (81-97); MEAN CORPUSCULAR HEMOGLOBIN 34.5 pg (27-33); MEAN CORPUSCULAR HGB CONC 35.2 g/dl (32-36); MEAN PLATELET VOLUME 10.1 fl (7.4-10.4); MONO % 8.9 % (0-9); PLATELET COUNT 87 K/uL (130-400); RED BLOOD COUNT 3.39 M/uL (4.40-5.70); RED CELL DISTRIBUTION WIDTH 14.1 % (11.5-14.5); WHITE BLOOD COUNT W/O DIFF 4.7 K/uL (4.2-12.2)
[2017-08-16 02:15] LABS: BLOOD UREA NITROGEN 11 mg/dL (8-23); CREATININE 1.1 mg/dL (0.7-1.2); EST GLOMERULAR FILTRATION RATE > 60 mL/min; TOTAL PROTEIN 6.4 g/dL (6.6-8.7)
[2017-08-16 02:17] LABS: GLUCOSE,RANDOM 235 mg/dL (74-109)
[2017-08-16 02:20] LABS: ALBUMIN 2.8 g/dL (4.0-5.0); ALKALINE PHOSPHATASE 197 U/L (40-129); ALT/SGPT 27 U/L (<41); AST/SGOT 44 U/L (10.0-50.0); BILIRUBIN,DIRECT 0.4 mg/dL (0-0.3); LIPASE 114 U/L (13-60)
[2017-08-16 02:40] LABS: INR 2.1; PROTHROMBIN TIME (PATIENT) 22.9 SECONDS (9.5-12.1)
[2017-08-16 03:07] LABS: URINE APPEARANCE CLEAR; URINE BILIRUBIN NEGATIVE (NEGATIVE); URINE BLOOD NEGATIVE (NEGATIVE); URINE COLOR YELLOW; URINE GLUCOSE (UA) NEGATIVE (NEGATIVE); URINE KETONE NEGATIVE (NEGATIVE); URINE LEUKOCYTE ESTERASE NEGATIVE (NEGATIVE); URINE NITRITE NEGATIVE (NEGATIVE); URINE PROTEIN NEGATIVE (NEGATIVE); URINE UROBILINOGEN 0.2 E.U./dL (0.20 - 1.00)
--- NOTE | 2017-08-16 03:19 | Emergency Department Record ---
History of Present Illness - General Chief Complaint: Abdominal Pain Stated Complaint: ABDOMINAL PAIN Time Seen by Provider: 08/16/17 01:35 Source: Patient Mode of Arrival: Wheelchair Limitations: No limitations - History of Present Illness Initial Comments: pt has epigastric pain. pt has portal vein thrombosis . pt has nausea. 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 Complaint: Abdominal pain Onset/Timin -: Hour(s) Location: LUQ, RUQ Radiation: Other Migration to: Periumbilical, Other Severity: Severe Severity scale (1-10): 9 Quality: Cramping Consistency: Constant, Intermittent Improves With: Nothing Worsens With: Nothing Associated Symptoms: Nausea - Related Data Home Medications Medication Instructions Recorded Confirmed Last Taken Sulfamethoxazole/Trimethoprim 1 tab PO BID 08/16/17 08/16/17 Unknown [Bactrim Ds Tablet] Tamsulosin HCl [Flomax] 0.4 mg PO DAILY 08/16/17 08/16/17 Unknown Previous Rx's Medication Instructions Recorded Glimepiride [Amaryl] 2 mg PO BID #60 tablet 06/11/17 Insulin Glargine,Hum.rec.anlog 60 unit SQ DAILY #0 06/11/17 [Lantus] Sulfamethoxazole/Trimethoprim 1 each PO BID #20 tablet 08/11/17 [Bactrim Ds Tablet] Tamsulosin HCl [Flomax] 0.4 mg PO DAILY #30 cap.er.24h 08/11/17 Allergies Allergy/AdvReac Type Severity Reaction Status Date / Time Penicillins Allergy RASH Verified 08/11/17 10:10 Travel Screening - Travel/Exposure Within Last 30 Days Have you traveled within the last 30 days?: No Review of Systems Reviewed: No additional complaints except as noted below Constitutional: Reports: As per HPI. Denies: Chills, Fever, Malaise, Night sweats, Weakness, Weight change Eyes: Reports: As per HPI. Denies: Eye discharge, Eye pain, Photophobia, Vision change ENT: Reports: As per HPI. Denies: Congestion, Dental pain, Ear pain, Epistaxis , Hearing loss, Throat pain Respiratory: Reports: As per HPI. Denies: Cough, Dyspnea, Hemoptysis, Stridor, Wheezes Cardiovascular: Reports: As per HPI. Denies: Arrhythmia, Chest pain, Dyspnea on exertion, Edema, Murmurs, Orthopnea, Palpitations, Paroxysmal nocturnal dyspnea, Rheumatic Fever, Syncope Endocrine: Reports: As per HPI. Denies: Fatigue, Heat or cold intolerance, Polydipsia, Polyuria Gastrointestinal: Reports: As per HPI. Denies: Abdominal pain, Constipation, Diarrhea, Hematemesis, Hematochezia, Melena, Nausea, Vomiting Genitourinary: Reports: As per HPI. Denies: Dysuria, Frequency, Hematuria, Incontinence, Retention, Testicular pain, Testicular mass, Urgency Musculoskeletal: Reports: As per HPI. Denies: Arthralgia, Back pain, Gout, Joint swelling, Myalgia, Neck pain Skin: Reports: As per HPI. Denies: Bruising, Change in color, Change in hair/ nails, Lesions, Pruritus, Rash Neurological: Reports: As per HPI. Denies: Abnormal gait, Confusion, Headache, Numbness, Paresthesias, Seizure, Tingling, Tremors, Vertigo, Weakness Psychiatric: Reports: As per HPI. Denies: Anxiety, Auditory hallucinations, Depression, Homicidal thoughts, Suicidal thoughts, Visual hallucinations Hematological/Lymphatic: Reports: As per HPI. Denies: Anemia, Blood Clots, Easy bleeding, Easy bruising, Swollen glands Past Medical History - SOCIAL HISTORY Smoking Status: Former smoker Alcohol Use: None Drug Use: None - RESPIRATORY Hx Respiratory Disorders: No - CARDIOVASCULAR Hx Cardio Disorders: Yes Hx Deep Vein Thrombosis: Yes Hx Edema: Yes Hx Hypertension: Yes Hx Irregular Heartbeat: Yes (A-fib) Comment:: HIGH CHOLESTEROL - NEURO Hx Neuro Disorders: Yes - GI Hx GI Disorders: Yes Hx Diverticulitis: Yes Hx Liver Disease: Yes (Hepatic Encephalopathy) Comment:: [place] Thrombosis - Hx Genitourinary Disorders: No - ENDOCRINE Hx Endocrine Disorders: Yes Hx Diabetes: Yes - MUSCULOSKELETAL Hx Musculoskeletal Disorders: No - PSYCH Hx Psych Problems: No - HEMATOLOGY/ONCOLOGY Hx Hematology/Oncology Disorders: Yes Hx Blood Disorders: Yes (low platelets; ITP) Comment:: MELANOMA Family Medical History Any Significant Family History?: Yes Hx Cancer: Father Physical Exam - General General Appearance: Alert, Oriented x3, Cooperative, Moderate distress - Head Head exam: Normal inspection - Eye Eye exam: Normal appearance, PERRL, EOMI Pupils: Normal accommodation - ENT ENT exam: Normal exam, Mucous membranes moist, Normal external ear exam, Normal orophraynx Ear exam: Normal external inspection. negative: External canal tenderness Nasal Exam: Normal inspection. negative: Discharge, Sinus tenderness Mouth exam: Normal external inspection, Tongue normal Teeth exam: Normal inspection. negative: Dental caries Throat exam: Normal inspection. negative: Tonsillar erythema, Tonsillar exudate - Neck Neck exam: Normal inspection, Full ROM. negative: Tenderness - Respiratory Respiratory exam: Normal lung sounds bilaterally. negative: Respiratory distress - Cardiovascular Cardiovascular Exam: Regular rate, Normal rhythm, Normal heart sounds - GI/Abdominal GI/Abdominal exam: Soft, Normal bowel sounds, Tenderness - Rectal Rectal exam: Deferred - exam: Deferred - Extremities Extremities exam: Normal inspection, Full ROM, Normal capillary refill. negative: Tenderness - Back Back exam: Reports: Normal inspection, Full ROM. Denies: Muscle spasm, Rash noted, Tenderness - Neurological Neurological exam: Alert, Normal gait, Oriented X3, Reflexes normal - Psychiatric Psychiatric exam: Normal affect, Normal mood - Skin Skin exam: Dry, Intact, Normal color, Warm Course Vital Signs 08/16/17 08/16/17 01:22 02:38 Temperature 97.7 F Pulse Rate [ 57 L 62 Pulse Ox Probe] Respiratory 20 18 Rate Blood Pressure 120/65 131/74 [Left Arm] Pulse Ox 98 94 L - Reevaluation(s) Reevaluation #1: 08/16/17 03:18 pt has improved with some pain relief. Reevaluation #2: 08/16/17 03:20 pt is not a surgical candidate. pt and do not want him transferred. they want him admitted here for comfort for 24 hours Medical Decision Making - Lab Data Result diagrams: 08/16/17 01:40 08/16/17 01:40 Lab Results 08/16/17 08/16/17 08/16/17 Range/Units 01:40 01:40 01:45 WBC 4.7 (4.2-12.2) K/uL RBC 3.39 L (4.40-5.70) M/uL Hgb 11.7 L (14.0-18.0) gm/dl Hct 33.2 L (42.0-52.0) % MCV 97.9 H (81-97) fl MCH 34.5 H (27-33) pg MCHC 35.2 (32-36) g/dl RDW 14.1 (11.5-14.5) % Plt Count 87 L (130-400) K/uL MPV 10.1 (7.4-10.4) fl Gran % 70.8 (47-80) % Lymphocytes % 18.0 (16-45) % Monocytes % 8.9 (0-9) % Eosinophils % 1.9 (0-6) % Basophils % 0.4 (0-6) % PT 22.9 H (9.5-12.1) SECONDS INR 2.1 Sodium 134 L (136-145) mmol/L Potassium 4.1 (3.4-4.5) mmol/L Chloride 94 L (98-107) mmol/L Carbon Dioxide 24.0 (22-29) mmol/L Anion Gap 16.0 (7-16) BUN 11 (8-23) mg/dL Creatinine 1.1 (0.7-1.2) mg/dL Estimated GFR > 60 mL/min Random Glucose 235 H (74-109) mg/dL Calcium 7.9 L (8.8-10.2) mg/dL Total Bilirubin 1.00 (0.2-1.0) mg/dL Direct Bilirubin 0.4 H (0-0.3) mg/dL AST 44 (10.0-50.0) U/L ALT 27 (<41) U/L Alkaline Phosphatase 197 H (40-129) U/L Total Protein 6.4 L (6.6-8.7) g/dL Albumin 2.8 L (4.0-5.0) g/dL Lipase 114 H (13-60) U/L Urine Color Urine Appearance Urine pH (5.0-8.0) Ur Specific [place] (1.002-1.030) Urine Protein (NEGATIVE) Urine Glucose (UA) (NEGATIVE) Urine Ketones (NEGATIVE) Urine Blood (NEGATIVE) Urine Nitrite (NEGATIVE) Urine Bilirubin (NEGATIVE) Urine Urobilinogen (0.20 - 1.00) E.U./dL Ur Leukocyte Esterase (NEGATIVE) 08/16/17 Range/Units 03:00 WBC (4.2-12.2) K/uL RBC (4.40-5.70) M/uL Hgb (14.0-18.0) gm/dl Hct (42.0-52.0) % MCV (81-97) fl MCH (27-33) pg MCHC (32-36) g/dl RDW (11.5-14.5) % Plt Count (130-400) K/uL MPV (7.4-10.4) fl Gran % (47-80) % Lymphocytes % (16-45) % Monocytes % (0-9) % Eosinophils % (0-6) % Basophils % (0-6) % PT (9.5-12.1) SECONDS INR Sodium (136-145) mmol/L Potassium (3.4-4.5) mmol/L Chloride (98-107) mmol/L Carbon Dioxide (22-29) mmol/L Anion Gap (7-16) BUN (8-23) mg/dL Creatinine (0.7-1.2) mg/dL Estimated GFR mL/min Random Glucose (74-109) mg/dL Calcium (8.8-10.2) mg/dL Total Bilirubin (0.2-1.0) mg/dL Direct Bilirubin (0-0.3) mg/dL AST (10.0-50.0) U/L ALT (<41) U/L Alkaline Phosphatase (40-129) U/L Total Protein (6.6-8.7) g/dL Albumin (4.0-5.0) g/dL Lipase (13-60) U/L Urine Color Yellow Urine Appearance Clear Urine pH 6.5 (5.0-8.0) Ur Specific [place] 1.020 (1.002-1.030) Urine Protein Negative (NEGATIVE) Urine Glucose (UA) Negative (NEGATIVE) Urine Ketones Negative (NEGATIVE) Urine Blood Negative (NEGATIVE) Urine Nitrite Negative (NEGATIVE) Urine Bilirubin Negative (NEGATIVE) Urine Urobilinogen 0.2 (0.20 - 1.00) E.U./dL Ur Leukocyte Esterase Negative (NEGATIVE) Disposition Disposition: Admit Clinical Impression: Pancreatitis Qualifiers: Chronicity: acute Pancreatitis type: other Acute pancreatitis complication: unspecified Qualified Code(s): K85.80 - Other acute pancreatitis without necrosis or infection Cholelithiasis Qualifiers: Cholelithiasis location: gallbladder Cholecystitis presence: without cholecystitis Biliary obstruction: without biliary obstruction Qualified Code(s) : K80.20 - Calculus of gallbladder without cholecystitis without obstruction Disposition: Still a Patient at [facility] Decision to Admit: Admit from ER Decision to Admit Date: 08/16/17 Decision to Admit Time: 03:25 Quality - Quality Measures Quality Measures: N/A - Blood Pressure Screening Does Patient Have Any of the Following: No Blood Pressure Classification: Pre-Hypertensive BP Reading Systolic Measurement: 131 Diastolic Measurement: 74 Screening for High Blood Pressure: < Pre-Hypertensive BP, F/U Documented > [ G8950] Pre-Hypertensive Follow-up Interventions: Follow-up with rescreen every year.
[2017-08-16] MEDS ORDERED: ONDANSETRON HCL IV 4 MG/2 ML VIAL IVP PRN (04:02)
[2017-08-16] MEDS ORDERED: HYDROMORPHONE HCL 2 MG/ML VIAL IV PRN (04:02)
[2017-08-16] MEDS ORDERED: MORPHINE SULFATE 4MG/ML PREFILLED SYRINGE IVP PRN (04:02)
[2017-08-16] MEDS ORDERED: 0.9 % SODIUM CHLORIDE 1000ML 1,000 ML IV PRN (04:02)
[2017-08-16] MEDS ORDERED: PANTOPRAZOLE SODIUM 40 MG TABLET PO SCH (06:00)
[2017-08-16 06:28] LABS: HEMATOCRIT 33.9 % (42.0-52.0); HEMOGLOBIN 11.6 gm/dl (14.0-18.0); MEAN CELL VOLUME 99.7 fl (81-97); MEAN CORPUSCULAR HEMOGLOBIN 34.1 pg (27-33); MEAN CORPUSCULAR HGB CONC 34.2 g/dl (32-36); PLATELET COUNT 71 K/uL (130-400); RED CELL DISTRIBUTION WIDTH 14.1 % (11.5-14.5); WHITE BLOOD COUNT W/O DIFF 4.6 K/uL (4.2-12.2)
[2017-08-16 06:36] LABS: INR 2.2; PROTHROMBIN TIME (PATIENT) 24.3 SECONDS (9.5-12.1)
[2017-08-16 06:42] LABS: ALB/GLOB RATIO 0.9 (1.1-1.8); ALBUMIN 2.9 g/dL (4.0-5.0); ALKALINE PHOSPHATASE 191 U/L (40-129); ALT/SGPT 26 U/L (<41); AST/SGOT 41 U/L (10.0-50.0); BLOOD UREA NITROGEN 12 mg/dL (8-23); CREATININE 1.1 mg/dL (0.7-1.2); EST GLOMERULAR FILTRATION RATE > 60 mL/min; GLUCOSE,RANDOM 255 mg/dL (74-109); LIPASE 68 U/L (13-60); TOTAL PROTEIN 6.2 g/dL (6.6-8.7)
[2017-08-16 07:05] LABS: PLATELET ESTIMATE DECREASED (NORMAL)
--- NOTE | 2017-08-16 09:14 | Discharge Note ---
VTE H&P Assessment - Risk for VTE Risk for VTE: Yes Risk Level: Moderate Risk Assessment Date: 08/16/17 Risk Assessment Time: 09:08 VTE Orders Placed or Will Be Placed: Yes Discharge Medications - Discharge Medications Prescriptions: Hydrocodone/Acetaminophen [[place] 5-325 Tablet] 1 each PO Q6HR #20 tablet Home Medications: Ambulatory Orders Spironolactone [Aldactone] 25 mg PO BID 04/15/17 [Last Taken 08/11/17] Pantoprazole Sodium 40 mg PO DAILY 06/09/17 [Last Taken 08/11/17] Glimepiride [Amaryl] 2 mg PO BID #60 tablet 06/11/17 [Last Taken 08/11/17] Insulin Glargine,Hum.rec.anlog [Lantus] 60 unit SQ DAILY #0 06/11/17 [Last Taken 08/11/17] Lactulose 60 ml PO TID 08/07/17 [Last Taken 08/11/17] Rifaximin [Xifaxan] 550 mg PO BID 08/07/17 [Last Taken 08/11/17] Torsemide [Demadex] 20 mg PO DAILY 08/07/17 [Last Taken 08/11/17] Warfarin Sodium [Coumadin] 4 mg PO QPM 08/07/17 [Last Taken 08/10/17] Sulfamethoxazole/Trimethoprim [Bactrim Ds Tablet] 1 each PO BID #20 tablet 08/11 [Last Taken Unknown] Tamsulosin HCl [Flomax] 0.4 mg PO DAILY #30 cap.er.24h 08/11/17 [Last Taken Unknown] Hydrocodone/Acetaminophen [[place] 5-325 Tablet] 1 each PO Q6HR #20 tablet [Last Taken Unknown] Sulfamethoxazole/Trimethoprim [Bactrim Ds Tablet] 1 tab PO BID 08/16/17 [Last Taken Unknown] Tamsulosin HCl [Flomax] 0.4 mg PO DAILY 08/16/17 [Last Taken Unknown] Discharge Note - Date Date of Discharge Note: 08/16/17 Disposition: Home, Self-Care Condition: (1) Good Additional Instructions: follow up with Dr. Croft on August 21 use norco for pain one every 6 hours as needed and be careful on useing tylenol OTC limit to 2 gms per 24 hours continue home meds as before Forms: Patient Portal Access
[2017-08-16] MEDS ORDERED: RIFAXIMIN 550 MG TABLET PO SCH (10:00)
[2017-08-16] MEDS ORDERED: BUMETANIDE 1 MG TABLET PO SCH (10:00)
[2017-08-16] MEDS ORDERED: TMP/SMZ 160MG/800MG TAB PO SCH (10:00)
[2017-08-16] MEDS ORDERED: TAMSULOSIN HCL 0.4 MG CAP.ER.24H PO SCH (10:00)
[2017-08-16] MEDS ORDERED: SPIRONOLACTONE 25 MG TAB PO SCH (10:00)
[2017-08-16] MEDS ORDERED: GLIMEPIRIDE 2 MG TABLET PO SCH (10:00)
[2017-08-16] MEDS ORDERED: LEVEMIR FLEXTOUCH 100 UNIT/ML INSULIN PEN SQ SCH (10:00)
[2017-08-16] MEDS ORDERED: LACTULOSE 20 GM/30 ML UDC PO SCH (10:00)
--- NOTE | 2017-08-16 11:58 | Discharge Summary ---
DATE OF DISCHARGE: 08/16/2017 at 9:15 a.m. PATIENT STATUS: This is an observation patient. DATE OF ADMISSION: 08/16/2017 at 3:00 a.m. DISCHARGE DIAGNOSES: 1. ACUTE CHOLECYSTITIS. 2. BILIARY COLIC. 3. GALLSTONE PANCREATITIS. 4. GALLSTONE IN THE NECK OF THE GALLBLADDER. 5. STATUS POST CIRRHOSIS OF THE LIVER. FATTY INFILTRATION WITH LIVER DISEASE. 6. A HISTORY OF HEPATIC ENCEPHALOPATHY TWO OR THREE TIMES. 7. CHRONIC ATRIAL FIBRILLATION. 8. A HISTORY OF PORTAL VEIN THROMBOSIS, ON COUMADIN. 9. DIABETES MELLITUS, TYPE 2, INSULIN USE. 10. A HISTORY OF IDIOPATHIC THROMBOCYTOPENIA PURPURA. 11. STATUS POST HYPERCHOLESTEROLEMIA. ATTENDING PHYSICIAN: Jed Croft D.O. REASON FOR HOSPITALIZATION: Abdominal pain, right upper quadrant. COURSE OF HOSPITALIZATION: This 77-year-old male presented with sudden onset of right upper quadrant abdominal pain. His last bowel movement was yesterday, and it was normal. He is currently being treated for a urinary tract infection with Bactrim twice a day. He had nausea and was passing gas. He came to the emergency department at 1:30 a.m. He was evaluated by Dr. Gupta and was placed in the hospital for observation. She diagnosed him with pancreatitis, gallstones, cholelithiasis, and biliary obstruction. White count was 4,700 and hemoglobin was 11.7. SIGNIFICANT FINDINGS: Diagnostic Studies: CT scan revealed a gallstone in the neck of the gallbladder. Laboratory: Again, white count was 4,700, hemoglobin was 11.7. Platelet count was 87,000 and went down to 71,000. Lymphocytes 18, monocytes were 8.9, eosinophils 1.9, neutrophiles 84. The PT INR was 2.2, potassium was 5.1, sodium was 132. His glucose was 255, and this morning it was 255. His total bilirubin was 1.2. Lipase was 114 and dropped down to 68 this morning. Urinalysis was negative which is good since he was being treated for a urinary tract infection with positive culture. I recommended he follow up and finish his Bactrim course at home. HOSPITAL COURSE: He has been pain-free since he was admitted to the hospital at 3:00 in the morning. CONDITION AT DISCHARGE: Much improved and tolerating clear liquids. DISCHARGE INSTRUCTIONS: Continue his home medications. Will add [place] 5.0 mg q. six hours p.r.n. pain if the pain flares up. He is to limit his absolute Tylenol amount to 2.0 gm in 24 hours, and so he has to be careful with over-the- counter Tylenol and [place]. Will keep his home medications the same with Coumadin 4.0 mg a day, Demadex 20 mg a day, Flomax 0.4 mg a day, Bactrim twice a day double strength for about three more days, Aldactone 25 mg b.i.d., rifaximin 550 mg b.i.d., Protonix 40 mg daily, lactulose three times a day to keep three loose stools a day, Lantus 60 units a day, Amaryl 2.0 mg b.i.d., [place] one every six hours 5.0 mg being careful with the Tylenol use. His diet will be clear liquids today, bland fluids tomorrow, and avoid fatty foods. A low-fat diet after that. Will have him follow up as an outpatient with possibly Dr. Corley or Dr. Rodriges depending how this evolves. JOB NUMBER: [id number] [facility]
--- NOTE | 2017-08-16 13:51 | History and Physical Report ---
DATE: 08/16/2017 at 8:13 a.m. CHIEF COMPLAINT: Right upper quadrant and epigastric abdominal pain. HISTORY OF PRESENT ILLNESS: This 76-year-old male presented to the emergency department with sudden onset of abdominal pain which woke him up at about midnight. He came to the emergency department and was evaluated by Dr. Gupta for right upper quadrant and epigastric abdominal pain. He was given 0.5 mg of Dilaudid and the pain was gone. His lipase was 114. Urinalysis was negative. The total bilirubin was 1.2. Direct bilirubin was 0.4. AST was 41 and ALT was 26. Alkaline phosphatase was 191. PT INR was 2.2. White count was 4,600, hemoglobin was 11.6. Platelet count was 71,000. He was diagnosed with acute pancreatitis, biliary colic, a gallstone at the neck of the gallbladder, and acute cholecystitis. PAST MEDICAL HISTORY: He has a history of cirrhosis of the liver secondary to fatty infiltration of the liver, chronic atrial fibrillation, type 2 diabetes without complication. He has a history of idiopathic thrombocytopenic purpura, portal vein thrombosis which is the reason he is on Coumadin for six months, and hypercholesterolemia. 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 He has a previous history of ascites. He had a urinary tract infection for which he has three more days of Bactrim Double Strength left. PAST SURGICAL HISTORY: Appendectomy, tonsillectomy, carpal tunnel, colonoscopy. MEDICATIONS ON ADMISSION: Coumadin 4.0 mg at h.s., Demadex 20 mg a day, Flomax 0.4 mg daily, Bactrim Double Strength one b.i.d. for three more days, Aldactone 25 mg once a day, rifaximin 550 mg b.i.d., and Protonix 40 mg daily. Lactulose 60 mL t.i.d. to continue with three stools a day; his titrates that up and down. Lantus 60 units q. daily, Amaryl 2.0 mg b.i.d. [place] is a new medication being added on in case he has any more abdominal pain, right upper quadrant, 5.0 mg one every six hours but limiting his total Tylenol to 2.0 gm in 24 hours. ALLERGIES: Penicillin. FAMILY/PSYCHOSOCIAL HISTORY: Former smoker. No alcohol or drug use. His father had cancer. No other significant family history. REVIEW OF SYSTEMS: HEENT: No upper respiratory infection systems, cough, cold, or congestion. Cardiovascular: No chest pain, palpitations, or arrhythmias. Respiratory: No cough, cold, or congestion. Gastrointestinal: See chief complaint. He had nausea but no vomiting. He had epigastric and right upper quadrant abdominal pain. No black stools or bloody stools. Genitourinary: No dysuria, hematuria, frequency, or burning on urination. He did have a urinary tract infection on Bactrim and he has three more days of that left. His urinalysis looked good during his time in the emergency room. Musculoskeletal: No joint or bone abnormalities. Neurologic: No confusion. He has had hepatic encephalopathy in the past. No signs of cerebrovascular accident or paralysis. Endocrine: He has type 2 diabetes mellitus for which he uses insulin. Integument: No rash, ulcers, change in moles, or yellow skin. PHYSICAL EXAMINATION: General: Height is 6 feet, 2 inches. Weight is 230 pounds. Vital Signs: Temperature is 97.9, pulse 57. Blood pressure is 105/65. Respiratory rate is 16. Pulse oximetry is 98 percent on room air. HEENT: Pupils are equal, round, and reactive to light and accommodation. Extraocular muscles are intact. Neck: The neck is supple. No jugular venous distension. No hepatojugular reflex. No carotid bruit. The thyroid is smooth. Cardiovascular: Irregular rate and rhythm. He has a history of atrial fibrillation. Respiratory: Clear to auscultation and percussion. Abdomen: Pain in the epigastric and right upper quadrant on palpation. No rebound, rigidity, or guarding. Extremities: No pitting edema. No cyanosis or clubbing. Full range of motion. Peripheral pulses are good. Breasts: Normal male breasts. Rectal Examination: Deferred. Genitalia: Normal male genitalia. Neurological Examination: Cranial nerves II through XII are intact. No gross defects. Sensation is normal. Strength is normal. Deep tendon reflexes are equal bilaterally. Babinski is negative. Mental Status: Alert and oriented times three. IMPRESSIONS: 1. BILIARY COLIC. 2. GALLSTONE PANCREATITIS. 3. GALLSTONE IN THE NECK OF THE PANCREAS. 4. ACUTE CHOLECYSTITIS. 5. STATUS POST CIRRHOSIS OF THE LIVER FROM FATTY INFILTRATION OF THE LIVER. 6. A HISTORY OF HEPATIC ENCEPHALOPATHY TIMES THREE THIS YEAR. 7. CHRONIC ATRIAL FIBRILLATION. 8. DIABETES MELLITUS, TYPE 2, WITH INSULIN USE. 9. A HISTORY OF IDIOPATHIC THROMBOCYTOPENIA PURPURA. PLATELET COUNT IS 71,000. 10. HYPERCHOLESTEROLEMIA. 11. PORTAL VEIN THROMBOSIS, ON COUMADIN THERAPY 4.0 MG A DAY. PT INR IS 2.2. HE ALSO USES LACTULOSE FOR HIS CIRRHOSIS TO KEEP HIM OUT OF HEPATIC ENCEPHALOPATHY. PLAN: The patient is doing better. We will go with clear liquids. Avoid fatty foods. Follow up with GI and Surgery depending on how this evolves. At this point, it is safe to discharge him home for outpatient care. JOB NUMBER: [id number] [facility]
[2017-08-16] MEDS ORDERED: WARFARIN 1 MG TABLET PO SCH (17:00)
--- NOTE | 2017-08-19 07:53 | CT SCAN REPORT ---
EXAM: CT OF THE ABDOMEN AND PELVIS WITHOUT CONTRAST HISTORY: ABDOMINAL PAIN. TECHNIQUE: Sequential axial images were obtained from the diaphragms through the ischiorectal fossa without intravenous or oral contrast administration. Comparison: None. FINDINGS: There is a cirrhotic liver. There is splenomegaly present. There is cholelithiasis with gallbladder distention. There is abdominal ascites. There are splenic varicosities. The bilateral kidneys demonstrate no obstructing pathology. There is a benign appearing cyst in the right kidney. The small and large bowel appears normal. There is atheromatous change of the abdominal vasculature. There is multilevel degenerative change of the lumbar spine. IMPRESSION: 1. CIRRHOTIC LIVER WITH SPLENOMEGALY AND VARICOSITIES. FINDINGS ARE CONSISTENT WITH CIRRHOSIS WITH PORTAL VENOUS HYPERTENSION. THERE IS A 16 MM CYSTIC LESION IN THE RIGHT LOBE OF THE LIVER. 2. GALLBLADDER DISTENTION WITH CHOLELITHIASIS. THERE IS A 6 MM STONE IN THE GALLBLADDER NECK. 3. SMALL AMOUNT OF ABDOMINAL AND PELVIC ASCITES. JOB NUMBER: [id number] [facility]
== END 2017-08-16 13:14 | disposition home or self-care (01) ==
LOC: ER 01:21 → MEDSURG 03:47
PROVIDERS: ADMIT Emergency Medicine; ATTEND Emergency Medicine
DX: K85.10 Biliary acute pancreatitis without necrosis or infection (principal); K80.42 Calculus of bile duct with acute cholecystitis without obstruction; R11.0 Nausea; K72.90 Hepatic failure, unspecified without coma; I81 Portal vein thrombosis; D69.3 Immune thrombocytopenic purpura; K76.0 Fatty (change of) liver, not elsewhere classified; E11.9 Type 2 diabetes mellitus without complications; Z79.4 Long term (current) use of insulin; N39.0 Urinary tract infection, site not specified; D69.6 Thrombocytopenia, unspecified; K52.9 Noninfective gastroenteritis and colitis, unspecified; I10 Essential (primary) hypertension; Z79.01 Long term (current) use of anticoagulants; E78.00 Pure hypercholesterolemia, unspecified; Z86.718 Personal history of other venous thrombosis and embolism; Z87.891 Personal history of nicotine dependence; I48.2 Chronic atrial fibrillation
CPT/HCPCS: 83690; 85025; 85610; 80076; 80048; 80053; 36416; 82948; 81003; 85027; 74176; G0378; J1170; J3490; 96365; 96366; 96374; 99285; J2550

== ENCOUNTER 2017-08-26 19:31 | Emergency (ER) | payer MEDICARE ==
[2017-08-26] MEDS ORDERED: HYDROMORPHONE HCL 2 MG/ML VIAL IVP ONE (19:46)
[2017-08-26] MEDS ORDERED: ONDANSETRON HCL IV 4 MG/2 ML VIAL IVP ONE (19:46)
--- NOTE | 2017-08-26 19:52 | Emergency Department Record ---
History of Present Illness - General Chief Complaint: Abdominal Pain Stated Complaint: GALL BLADDER PAIN Time Seen by Provider: 08/26/17 19:32 Source: Patient Mode of Arrival: Wheelchair Limitations: No limitations - History of Present Illness Initial Comments: 77 yo male presents to ED for evaluation of a "gallbladder attack". Patient reports recent CT imaging demonstrating gallbladder disease and a stone in heather neck of the gallbladder, reports that he has seen Dr. Rodriges and been recently admitted/discharged from [facility] 3-4 days ago for hsi symptoms, reports that the patient is "not a surgical candidate" due to portal vein thrombosis and ITP. Patient was prescribed [place] for his pain symptoms that improved his pain last night, however have not improved his symptoms this evening. Patient has several appointments at [facility] in 2 days for further evaluation of his portal vein thrombosis and gallbladder disease. SO requests that "we control his pain and try to get him home for his appointments". MD Complaint: Abdominal pain Onset/Timin -: Hour(s) Location: RUQ Radiation: None Severity: Severe Quality: Sharp, Stabbing Consistency: Intermittent Improves With: Medication Worsens With: Eating Associated Symptoms: Denies other symptoms - Related Data Previous Rx's Medication Instructions Recorded Glimepiride [Amaryl] 2 mg PO BID #60 tablet 06/11/17 Insulin Glargine,Hum.rec.anlog 60 unit SQ DAILY #0 06/11/17 [Lantus] Sulfamethoxazole/Trimethoprim 1 each PO BID #20 tablet 08/11/17 [Bactrim Ds Tablet] Tamsulosin HCl [Flomax] 0.4 mg PO DAILY #30 cap.er.24h 08/11/17 Hydrocodone/Acetaminophen [[place] 1 each PO Q6HR #20 tablet 08/16/17 5-325 Tablet] Allergies Allergy/AdvReac Type Severity Reaction Status Date / Time Penicillins Allergy RASH Verified 08/11/17 10:10 Review of Systems Constitutional: Denies: Chills, Fever, Malaise, Night sweats Eyes: Denies: Eye discharge, Eye pain ENT: Denies: Congestion, Ear pain, Epistaxis Respiratory: Denies: Cough, Dyspnea Cardiovascular: Denies: Chest pain, Dyspnea on exertion Endocrine: Denies: Fatigue, Heat or cold intolerance Gastrointestinal: Reports: Abdominal pain, Nausea Genitourinary: Denies: Testicular pain, Testicular mass Musculoskeletal: Denies: Arthralgia, Back pain Skin: Denies: Bruising, Change in color Neurological: Denies: Abnormal gait, Confusion, Headache, Seizure Psychiatric: Denies: Anxiety Hematological/Lymphatic: Denies: Anemia, Blood Clots Past Medical History - SOCIAL HISTORY Smoking Status: Former smoker Drug Use: None - RESPIRATORY Hx Respiratory Disorders: No - CARDIOVASCULAR Hx Cardio Disorders: Yes Hx Abnormal EKG: Yes Hx Cardiac Cath: Yes Hx Chest Pain: No Hx CHF: Yes Hx Deep Vein Thrombosis: Yes Hx Edema: Yes Hx Heart Attack: No Hx Hypertension: Yes Hx Hypotension: Yes Hx Irregular Heartbeat: Yes (A-fib) Hx Palpitations: No Hx Pacemaker/Defib: No Hx Vascular Disease: No Comment:: HIGH CHOLESTEROL - NEURO Hx Neuro Disorders: No Hx Brain Tumor: No Hx CVA: No Hx Dementia: No Hx Dizziness: No Hx Headaches: No Hx Neuropathy: No Hx Parkinson's Disease: No Hx Seizures: No Hx Speech Problem: No Hx TIA: No - GI Hx GI Disorders: Yes Hx Abdominal Pain: Yes Hx Celiac Disease: No Hx Crohn's Disease: No Hx Diverticulitis: Yes Hx GI Bleed: No Hx Reflux: No Hx Hepatitis/Jaundice: No Hx Hiatal Hernia: No Hx Irritable Bowel: No Hx Liver Disease: Yes (Hepatic Encephalopathy; portal vein thrombosis) Hx Nausea/Vomiting: No Hx Obstructive Bowel: No Hx Pancreatitis: No Hx Rectal Bleeding: No Hx Ulcer: No Hx Wt Loss/Wt Gain: No Hx of Polyps: Yes Comment:: Portal Vein Thrombosis - Hx Genitourinary Disorders: No Hx Bladder Problem: No Hx Dialysis: No Hx Kidney Stones: No Hx Prostate Problems: No Hx Renal Disease: No Hx UTI: Yes - ENDOCRINE Hx Endocrine Disorders: Yes Hx Diabetes: Yes Hx Thyroid Disease: No - MUSCULOSKELETAL Hx Musculoskeletal Disorders: No Hx Arthritis: Yes Hx Back Injury: No Hx Fibromyalgia: No Hx Gout: No Hx Musculoskeletal Disease: No Hx Osteoporosis: No - PSYCH Hx Psych Problems: No Hx Anxiety: No Hx Behavior Problems: No Hx Depression: No Hx Emotional Abuse: No Hx Sexual Abuse: No Hx Suicide Attempt: No - HEMATOLOGY/ONCOLOGY Hx Hematology/Oncology Disorders: Yes Hx Anemia: No Hx Blood Disorders: Yes (low platelets; ITP) Hx Bruising: No Hx Cancer: Yes (skin) Hx Chemotherapy: No Hx Radiation Therapy: No Hx Clotting Problems: Yes Hx Sickle Cell Disease: No Hx Unexplained Bleeding: No Hx Blood Transfusions: No Hx Blood Transfusion Reaction: No Comment:: MELANOMA Family Medical History Hx Alcohol Use: Father Hx Cancer: Father Hx Diabetes: Mother, Brother/Sister, Grandparents Hx Heart Disease: Mother Hx HTN: Mother, Brother/Sister Hx Liver Disease: Brother/Sister Hx Stroke: Grandparents Physical Exam - General General Appearance: Alert, Oriented x3, Cooperative, Moderate distress Limitations: No limitations - Head Head exam: Atraumatic, Normocephalic, Normal inspection Head exam detail: negative: Abrasion, Contusion, Sauer's sign, General tenderness, Hematoma, Laceration - Eye Eye exam: Normal appearance. negative: Conjunctival injection, Periorbital swelling, Periorbital tenderness, Scleral icterus - ENT Ear exam: negative: Auricular hematoma, Auricular trauma Nasal Exam: negative: Active bleeding, Discharge, Dried blood, Foreign body Mouth exam: negative: Drooling, Laceration, Muffled voice, Tongue elevation - Neck Neck exam: Normal inspection. negative: Meningismus, Tenderness - Respiratory Respiratory exam: Normal lung sounds bilaterally. negative: Rales, Respiratory distress, Rhonchi, Stridor - Cardiovascular Cardiovascular Exam: Regular rate, Normal rhythm, Normal heart sounds - GI/Abdominal GI/Abdominal exam: Soft, Tenderness (Diffuse TTP on examination, greatest to the RUQ with guarding present, no peritoneal signs are present on exam.). negative: Rebound, Rigid - Rectal Rectal exam: Deferred - exam: Deferred - Extremities Extremities exam: Normal inspection. negative: Calf tenderness, Pedal edema, Tenderness - Back Back exam: Denies: CVA tenderness (R), CVA tenderness (L) - Neurological Neurological exam: Alert, Normal gait, Oriented X3 - Psychiatric Psychiatric exam: Normal affect, Normal mood - Skin Skin exam: Normal color. negative: Abrasion Type of lesion: negative: abrasion Course Vital Signs 08/26/17 19:42 Temperature 98.8 F Pulse Rate [ 65 Pulse Ox Probe] Respiratory 18 Rate Blood Pressure 125/80 [Left Arm] Pulse Ox 100 - Reevaluation(s) Reevaluation #1: 08/26/17 19:53 CT Abdomen and Pelvis 08/16/17: Sever liver cirrhosis with splenomegaly and extensive sissy-systemnic venous collateral formation Small amount of abdominal/pelvic ascites. Cholelithiasis. Distended gallbladder with 6 mm stone in heather neck Ileus. Will obtain laboratory studies, administer analgesia, and reassess for further disposition. Reevaluation #2: 08/26/17 20:39 Labs were reviewed: Hgb 12.6 INR 2.2 Glucose 330 Alk phos 234 AST 55 ALT 35 Lipase 100 Patient and his SO were updated on all results, reports that he is feeling much better. Patient was offered transfer to for admission and further evaluation, patient and his SO decline transfer at this time. Patient reports that he will adhere to a clear liquid diet until his appointment in 48 hours at with his specialist. Patient's laboratory studies do not appears consistent with acute cholecystitis, and the patient appears stable for discharge at this time with strict instructions to return for any worsening of his symptoms. Medical Decision Making - Lab Data Result diagrams: 08/26/17 19:47 08/26/17 19:47 Disposition Disposition: Discharge Clinical Impression: Biliary colic Disposition: Home, Self-Care Condition: (2) Stable Instructions: Biliary Colic (ED) Additional Instructions: Return to ED if your symptoms worsen or if you have any concerns. Continue [place] asprescribed. Follow-up with your specialist at [facility] in 36 hours as scheduled. Forms: Patient Portal Access Time of Disposition: 20:44 Quality - Quality Measures Quality Measures: N/A - Blood Pressure Screening Does Patient Have Any of the Following: No Blood Pressure Classification: Pre-Hypertensive BP Reading Systolic Measurement: 125 Diastolic Measurement: 80 Screening for High Blood Pressure: < Pre-Hypertensive BP, F/U Documented > [ G8950] Pre-Hypertensive Follow-up Interventions: Referral to alternative/primary care provider.
[2017-08-26 19:56] LABS: BASO % 0.2 % (0-6); EOS % 1.1 % (0-6); GRAN % 78.2 % (47-80); HEMATOCRIT 36.4 % (42.0-52.0); HEMOGLOBIN 12.6 gm/dl (14.0-18.0); LYMPH % 12.6 % (16-45); MEAN CELL VOLUME 97.6 fl (81-97); MEAN CORPUSCULAR HGB CONC 34.6 g/dl (32-36); MEAN PLATELET VOLUME 9.7 fl (7.4-10.4); MONO % 7.9 % (0-9); PLATELET COUNT 94 K/uL (130-400); RED BLOOD COUNT 3.73 M/uL (4.40-5.70); RED CELL DISTRIBUTION WIDTH 14.4 % (11.5-14.5); WHITE BLOOD COUNT W/O DIFF 4.7 K/uL (4.2-12.2)
[2017-08-26 19:57] LABS: MEAN CORPUSCULAR HEMOGLOBIN 33.7 pg (27-33)
[2017-08-26] MEDS ORDERED: 0.9 % SODIUM CHLORIDE 1000ML 1,000 ML IV SCH (20:00)
[2017-08-26 20:06] LABS: INR 2.2; PROTHROMBIN TIME (PATIENT) 23.9 SECONDS (9.5-12.1)
[2017-08-26 20:09] LABS: BLOOD UREA NITROGEN 13 mg/dL (8-23); CREATININE 1.2 mg/dL (0.7-1.2); EST GLOMERULAR FILTRATION RATE > 60 mL/min
[2017-08-26 20:10] LABS: TOTAL PROTEIN 6.7 g/dL (6.6-8.7)
[2017-08-26 20:12] LABS: GLUCOSE,RANDOM 330 mg/dL (74-109)
[2017-08-26 20:15] LABS: ALB/GLOB RATIO 0.8 (1.1-1.8); ALKALINE PHOSPHATASE 234 U/L (40-129); ALT/SGPT 35 U/L (<41); AST/SGOT 55 U/L (10.0-50.0); LIPASE 100 U/L (13-60)
== END 2017-08-26 21:22 | disposition home or self-care (01) ==
LOC: ER 19:31
DX: K80.50 Calculus of bile duct without cholangitis or cholecystitis without obstruction (principal); I50.9 Heart failure, unspecified; I10 Essential (primary) hypertension; I48.91 Unspecified atrial fibrillation; Z87.891 Personal history of nicotine dependence
CPT/HCPCS: 80053; 83690; 85025; 85610; 96374; 96375; 99284; J2405; J7030

== ENCOUNTER 2017-09-18 09:45 | Emergency (ER) | payer MEDICARE ==
--- NOTE | 2017-09-18 10:16 | Emergency Department Record ---
History of Present Illness - General Chief Complaint: Abdominal Pain Stated Complaint: GALL BLADDER PAIN/WANTS TRANSFERED TO [facility] Time Seen by Provider: 09/18/17 10:15 Source: Patient Mode of Arrival: Ambulatory Limitations: No limitations - History of Present Illness Initial Comments: The patient is here due to AP which returned about 8 hours ago. The pain is all over. The patient states he has an extensive hx of cirrhosis and portal HTN and ascites and may also have a GB problem. He has recently been seen at [facility] and was told if this occurs again please go the ER and be transferred to [facility]. The patient denies any fever, chills, CP, SOB, or diarrhea. MD Complaint: Abdominal pain -: Month(s) Location: Diffuse Severity: Moderate Severity scale (1-10): 6 Quality: Aching, Dull, Fullness, Sharp Improves With: Nothing Worsens With: Nothing Associated Symptoms: Vomiting Treatments Prior to Arrival: Other - Related Data Previous Rx's Medication Instructions Recorded Glimepiride [Amaryl] 2 mg PO BID #60 tablet 06/11/17 Insulin Glargine,Hum.rec.anlog 60 unit SQ DAILY #0 06/11/17 [Lantus] Tamsulosin HCl [Flomax] 0.4 mg PO DAILY #30 cap.er.24h 08/11/17 Hydrocodone/Acetaminophen [[place] 1 each PO Q6HR #20 tablet 08/16/17 5-325 Tablet] Hydrocodone/Acetaminophen [[place] 1 each PO QID #12 tablet 09/18/17 5-325 Tablet] Allergies Allergy/AdvReac Type Severity Reaction Status Date / Time Penicillins Allergy RASH Verified 09/18/17 12:10 Travel Screening - Travel/Exposure Within Last 30 Days Have you traveled within the last 30 days?: No - Travel/Exposure Within Last Year Have you traveled outside the [place] in the last year?: No - Additonal Travel Details Have you been exposed to anyone with a communicable illness?: No - Travel Symptoms Symptom Screening: None Review of Systems Constitutional: Denies: Chills, Fever Eyes: Denies: Eye discharge ENT: Denies: Congestion Respiratory: Denies: Cough, Dyspnea Past Medical History - SOCIAL HISTORY Smoking Status: Former smoker Alcohol Use: None Drug Use: None - RESPIRATORY Hx Respiratory Disorders: No - CARDIOVASCULAR Hx Cardio Disorders: Yes Hx Abnormal EKG: Yes Hx Cardiac Cath: Yes Hx Chest Pain: No Hx CHF: Yes Hx Deep Vein Thrombosis: Yes Hx Edema: Yes Hx Heart Attack: No Hx Hypertension: Yes Hx Hypotension: Yes Hx Irregular Heartbeat: Yes (A-fib) Hx Palpitations: No Hx Pacemaker/Defib: No Hx Vascular Disease: No Comment:: HIGH CHOLESTEROL - NEURO Hx Neuro Disorders: No Hx Brain Tumor: No Hx CVA: No Hx Dementia: No Hx Dizziness: No Hx Headaches: No Hx Neuropathy: No Hx Parkinson's Disease: No Hx Seizures: No Hx Speech Problem: No Hx TIA: No - GI Hx GI Disorders: Yes Hx Abdominal Pain: Yes Hx Celiac Disease: No Hx Crohn's Disease: No Hx Diverticulitis: Yes Hx GI Bleed: No Hx Reflux: No Hx Hepatitis/Jaundice: No Hx Hiatal Hernia: No Hx Irritable Bowel: No Hx Liver Disease: Yes (Hepatic Encephalopathy; portal vein thrombosis) Hx Nausea/Vomiting: No Hx Obstructive Bowel: No Hx Pancreatitis: No Hx Rectal Bleeding: No Hx Ulcer: No Hx Wt Loss/Wt Gain: No Hx of Polyps: Yes Comment:: Portal Vein Thrombosis - Hx Genitourinary Disorders: No Hx Bladder Problem: No Hx Dialysis: No Hx Kidney Stones: No Hx Prostate Problems: No Hx Renal Disease: No Hx UTI: Yes - ENDOCRINE Hx Endocrine Disorders: Yes Hx Diabetes: Yes Hx Thyroid Disease: No - MUSCULOSKELETAL Hx Musculoskeletal Disorders: No Hx Arthritis: Yes Hx Back Injury: No Hx Fibromyalgia: No Hx Gout: No Hx Musculoskeletal Disease: No Hx Osteoporosis: No - PSYCH Hx Psych Problems: No Hx Anxiety: No Hx Behavior Problems: No Hx Depression: No Hx Emotional Abuse: No Hx Sexual Abuse: No Hx Suicide Attempt: No - HEMATOLOGY/ONCOLOGY Hx Hematology/Oncology Disorders: Yes Hx Anemia: No Hx Blood Disorders: Yes (low platelets; ITP) Hx Bruising: No Hx Cancer: Yes (skin) Hx Chemotherapy: No Hx Radiation Therapy: No Hx Clotting Problems: Yes Hx Sickle Cell Disease: No Hx Unexplained Bleeding: No Hx Blood Transfusions: No Hx Blood Transfusion Reaction: No Comment:: MELANOMA Family Medical History Any Significant Family History?: No Hx Alcohol Use: Father Hx Cancer: Father Hx Diabetes: Mother, Brother/Sister, Grandparents Hx Heart Disease: Mother Hx HTN: Mother, Brother/Sister Hx Liver Disease: Brother/Sister Hx Stroke: Grandparents Physical Exam - General General Appearance: Alert, Oriented x3, Cooperative, No acute distress - Head Head exam: Atraumatic, Normocephalic, Normal inspection - Eye Eye exam: Normal appearance, PERRL - ENT Throat exam: Normal inspection. negative: Tonsillar erythema, Tonsillar exudate - Neck Neck exam: Normal inspection, Full ROM. negative: Tenderness - Respiratory Respiratory exam: Normal lung sounds bilaterally. negative: Respiratory distress - Cardiovascular Cardiovascular Exam: Regular rate, Normal rhythm, Normal heart sounds - GI/Abdominal GI/Abdominal exam: Soft, Distended, Tenderness (There is mild diffuse tenderness in all 4 quads.). negative: Rigid - Extremities Extremities exam: Normal inspection, Full ROM, Normal capillary refill. negative: Tenderness - Neurological Neurological exam: Alert. negative: Motor sensory deficit Course Vital Signs 09/18/17 10:01 Temperature 99.8 F H Pulse Rate 97 H Respiratory 20 Rate Blood Pressure 116/67 Pulse Ox 98 - Reevaluation(s) Reevaluation #1: The patient is doing better. He is resting comfortably in much less pain and no nausea. He has been taking sips of water and ice chips with no issues. 09/18/17 12:31 Reevaluation #2: The patient is doing a lot better at this time and states his pain has resolved. On recheck his temp is normal and his abdomen is very soft and nontender. I did explain the lab results to the patient and the need for transfer to [facility] in [place] where his Liver and GI Specialists can evaluate him further. The patient is reluctant to be transferred due to having an MRI scheduled in 2 days and the fact he is feeling better. I explained again to him and his he could have a serious infection in the fluid in the abdomen and in the GB which could warrant IV Abx's and possible surgery. The patient understands and accepts the risks and will follow up as previously planned. He is encouraged to return to the ER for any worsening symptoms. 09/18/17 12:44 Medical Decision Making - Data Complexity MDM Data: Labs Ordered and/or Reviewed, X-Ray Ordered and/or Reviewed - Lab Data Result diagrams: 09/18/17 10:35 09/18/17 10:35 - Radiology Data Radiology results: Report reviewed (CT: Mod ascites with a distended GB and a gallstone near the neck of the GB. Cirrhosis and Splenomegally.) Disposition Disposition: Discharge Clinical Impression: Abdominal pain Qualifiers: Abdominal location: generalized Qualified Code(s): R10.84 - Generalized abdominal pain Disposition: Against Medical Advice Condition: (2) Stable Instructions: Abdominal Pain (ED) Additional Instructions: Please continue your regular medicines and please make sure you get the MRI in 2 days. Please take your home [place] if needed. Return to the ER for any worsening symptoms, pain, fever, or vomiting. Prescriptions: Hydrocodone/Acetaminophen [[place] 5-325 Tablet] 1 each PO QID #12 tablet Forms: Patient Portal Access Time of Disposition: 12:49 Quality - Quality Measures Quality Measures: N/A - Blood Pressure Screening View Details: Yes Does Patient Have Any of the Following: No Blood Pressure Classification: Normal BP Reading Systolic Measurement: 96 Diastolic Measurement: 59 Screening for High Blood Pressure: < Normal BP, F/U Not Required > [G8783]
[2017-09-18] MEDS: ONDANSETRON HCL IV 4 MG/2 ML VIAL IV ONE (10:49)
[2017-09-18 10:54] LABS: HEMATOCRIT 36.8 % (42.0-52.0); HEMOGLOBIN 12.2 gm/dl (14.0-18.0); MEAN CELL VOLUME 99.7 fl (81-97); MEAN CORPUSCULAR HGB CONC 33.2 g/dl (32-36); MEAN PLATELET VOLUME 10.8 fl (7.4-10.4); PLATELET COUNT 51 K/uL (130-400); RED BLOOD COUNT 3.69 M/uL (4.40-5.70); RED CELL DISTRIBUTION WIDTH 15.2 % (11.5-14.5); WHITE BLOOD COUNT W/O DIFF 2.8 K/uL (4.2-12.2)
[2017-09-18 10:56] LABS: BLOOD UREA NITROGEN 15 mg/dL (8-23); EST GLOMERULAR FILTRATION RATE > 60 mL/min; PARTIAL THROMBOPLASTIN TIME 31.2 SECONDS (24.5-39.1); PROTHROMBIN TIME (PATIENT) 21.4 SECONDS (9.5-12.1); TOTAL PROTEIN 6.1 g/dL (6.6-8.7)
[2017-09-18 10:58] LABS: GLUCOSE,RANDOM 211 mg/dL (74-109)
[2017-09-18 11:00] LABS: PLATELET ESTIMATE DECREASED (NORMAL)
[2017-09-18 11:01] LABS: ALBUMIN 2.9 g/dL (4.0-5.0); ALKALINE PHOSPHATASE 170 U/L (40-129); ALT/SGPT 29 U/L (<41); AST/SGOT 54 U/L (10.0-50.0); BILIRUBIN,DIRECT 2.9 mg/dL (0-0.3); C-REACTIVE PROTEIN 0.54 mg/dL (<0.5); LIPASE 34 U/L (13-60)
[2017-09-18] MEDS: 0.9 % SODIUM CHLORIDE 1,000 ML BAG IV ONE (11:30)
[2017-09-18] MEDS: HYDROMORPHONE HCL 2 MG/ML VIAL IVP ONE (11:30)
--- NOTE | 2017-09-21 14:57 | CT SCAN REPORT ---
EXAM: CT SCAN ABDOMEN/PELVIS WO CONTRAST HISTORY: ABDOMINAL PAIN. TECHNIQUE: Sequential axial images were obtained from the diaphragm through the ischiorectal fossa without intravenous or oral contrast administration. FINDINGS: There are chronic changes in both lung bases. There is a cirrhotic liver with splenomegaly and portal venous hypertension. There are varicosities in the left upper quadrant. There is gallbladder distention with cholelithiasis. No ductal dilatation. The pancreas appears grossly unremarkable. The adrenal glands and kidneys appear normal. Small bowel appears normal. There is an equivocal short-segment of wall thickening at the junction of the transverse and descending colon. Nonspecific colitis is considered. There is a moderate amount of abdominal and pelvic ascites present. There is atheromatous change of the abdominal vasculature. The osseous structures appear grossly unremarkable. IMPRESSION: 1. CIRRHOTIC LIVER WITH AN 18 MM LOW-DENSITY LESION IN THE RIGHT LOBE. SPLENOMEGALY WITH PORTAL VENOUS HYPERTENSION AND VARICOSITIES PRESENT. 2. MODERATE AMOUNT OF ABDOMINAL AND PELVIC ASCITES. 3. EQUIVOCAL SHORT-SEGMENT OF WALL THICKENING AT THE JUNCTION OF THE TRANSVERSE AND DESCENDING COLON. A NONSPECIFIC COLITIS INCLUDING ISCHEMIC ETIOLOGIES IS SUGGESTED. 4. THERE IS GALLBLADDER DISTENTION WITH CHOLELITHIASIS. NO DUCTAL DILATATION. JOB NUMBER: [id number] [facility]
== END 2017-09-18 12:58 | disposition left against medical advice (07) ==
LOC: ER 09:45
DX: K80.80 Other cholelithiasis without obstruction (principal); K74.69 Other cirrhosis of liver; R11.11 Vomiting without nausea; R18.8 Other ascites; I48.91 Unspecified atrial fibrillation; I50.9 Heart failure, unspecified; I10 Essential (primary) hypertension; Z79.01 Long term (current) use of anticoagulants; Z87.891 Personal history of nicotine dependence
CPT/HCPCS: 74176; 80048; 80076; 82140; 83605; 83690; 85027; 85610; 85730; 86140; 96361; 96374; 96375; 99284; J2405; J7030

== ENCOUNTER 2017-09-20 03:31 | Emergency (ER) | payer MEDICARE ==
[2017-09-20] MEDS ORDERED: ONDANSETRON HCL IV 4 MG/2 ML VIAL IVP ONE (03:42)
[2017-09-20] MEDS ORDERED: MORPHINE SULFATE 4MG/ML PREFILLED SYRINGE IVP ONE (03:43)
[2017-09-20] MEDS ORDERED: 0.9 % SODIUM CHLORIDE 1000ML 500 ML IV SCH (03:45)
[2017-09-20] MEDS ORDERED: MORPHINE SULFATE 10 MG/ML VIAL IVP ONE ×2 (03:47→05:07)
--- NOTE | 2017-09-20 03:49 | Emergency Department Record ---
History of Present Illness - General Chief Complaint: Back Pain/Injury Stated Complaint: BACK PAIN Time Seen by Provider: 09/20/17 03:37 Source: Patient Mode of Arrival: Ambulatory Limitations: No limitations, Physical limitation - History of Present Illness Initial Comments: 77 yo male returns to ED for evaluation of RUQ and back pain symptoms, has known hepatic vein thrombosis and distended gallbladder with a stone within the neck. Patient has been seen by both surgery and GI at [facility], was told to return to ED for subsequent transfer if his symptoms worsen. Patient's pain symptoms worsened tonight, not relieved by [place] x 2. Patient is also taking Coumadin for his hepatic thrombosis. Onset/Timin -: Hour(s) Place: Home Severity scale (1-10): 10 Quality: Sharp, Stabbing Consistency: Constant Improves With: None Worsens With: None Associated Symptoms: Nausea/vomiting - Related Data Previous Rx's Medication Instructions Recorded Glimepiride [Amaryl] 2 mg PO BID #60 tablet 06/11/17 Insulin Glargine,Hum.rec.anlog 60 unit SQ DAILY #0 06/11/17 [Lantus] Tamsulosin HCl [Flomax] 0.4 mg PO DAILY #30 cap.er.24h 08/11/17 Hydrocodone/Acetaminophen [[place] 1 each PO Q6HR #20 tablet 08/16/17 5-325 Tablet] Hydrocodone/Acetaminophen [[place] 1 each PO QID #12 tablet 09/18/17 5-325 Tablet] Allergies Allergy/AdvReac Type Severity Reaction Status Date / Time Penicillins Allergy RASH Verified 09/18/17 12:10 Travel Screening - Travel/Exposure Within Last 30 Days Have you traveled within the last 30 days?: No Review of Systems Constitutional: Reports: Fever. Denies: Chills, Malaise, Night sweats Eyes: Denies: Eye discharge, Eye pain ENT: Denies: Congestion, Ear pain, Epistaxis Respiratory: Denies: Cough, Dyspnea Cardiovascular: Denies: Chest pain, Dyspnea on exertion Endocrine: Denies: Fatigue, Heat or cold intolerance Gastrointestinal: Reports: Abdominal pain. Denies: Nausea, Vomiting Genitourinary: Denies: Incontinence, Retention Musculoskeletal: Reports: Back pain. Denies: Arthralgia, Gout, Joint swelling Skin: Denies: Bruising, Change in color Neurological: Denies: Abnormal gait, Confusion, Headache, Seizure Psychiatric: Denies: Anxiety Hematological/Lymphatic: Reports: Blood Clots, Easy bleeding, Easy bruising. Denies: Anemia Past Medical History - SOCIAL HISTORY Smoking Status: Former smoker Alcohol Use: None Drug Use: None - RESPIRATORY Hx Respiratory Disorders: No - CARDIOVASCULAR Hx Cardio Disorders: Yes Hx Abnormal EKG: Yes Hx Cardiac Cath: Yes Hx Chest Pain: No Hx CHF: Yes Hx Deep Vein Thrombosis: Yes Hx Edema: Yes Hx Heart Attack: No Hx Hypertension: Yes Hx Hypotension: Yes Hx Irregular Heartbeat: Yes (A-fib) Hx Palpitations: No Hx Pacemaker/Defib: No Hx Vascular Disease: No Comment:: HIGH CHOLESTEROL - NEURO Hx Neuro Disorders: No Hx Brain Tumor: No Hx CVA: No Hx Dementia: No Hx Dizziness: No Hx Headaches: No Hx Neuropathy: No Hx Parkinson's Disease: No Hx Seizures: No Hx Speech Problem: No Hx TIA: No - GI Hx GI Disorders: Yes Hx Abdominal Pain: Yes Hx Celiac Disease: No Hx Crohn's Disease: No Hx Diverticulitis: Yes Hx GI Bleed: No Hx Reflux: No Hx Hepatitis/Jaundice: No Hx Hiatal Hernia: No Hx Irritable Bowel: No Hx Liver Disease: Yes (Hepatic Encephalopathy; portal vein thrombosis) Hx Nausea/Vomiting: No Hx Obstructive Bowel: No Hx Pancreatitis: No Hx Rectal Bleeding: No Hx Ulcer: No Hx Wt Loss/Wt Gain: No Hx of Polyps: Yes Comment:: Portal Vein Thrombosis - Hx Genitourinary Disorders: No Hx Bladder Problem: No Hx Dialysis: No Hx Kidney Stones: No Hx Prostate Problems: No Hx Renal Disease: No Hx UTI: Yes - ENDOCRINE Hx Endocrine Disorders: Yes Hx Diabetes: Yes Hx Thyroid Disease: No - MUSCULOSKELETAL Hx Musculoskeletal Disorders: No Hx Arthritis: Yes Hx Back Injury: No Hx Fibromyalgia: No Hx Gout: No Hx Musculoskeletal Disease: No Hx Osteoporosis: No - PSYCH Hx Psych Problems: No Hx Anxiety: No Hx Behavior Problems: No Hx Depression: No Hx Emotional Abuse: No Hx Sexual Abuse: No Hx Suicide Attempt: No - HEMATOLOGY/ONCOLOGY Hx Hematology/Oncology Disorders: Yes Hx Anemia: No Hx Blood Disorders: Yes (low platelets; ITP) Hx Bruising: No Hx Cancer: Yes (skin) Hx Chemotherapy: No Hx Radiation Therapy: No Hx Clotting Problems: Yes Hx Sickle Cell Disease: No Hx Unexplained Bleeding: No Hx Blood Transfusions: No Hx Blood Transfusion Reaction: No Comment:: MELANOMA Family Medical History Any Significant Family History?: Yes Hx Alcohol Use: Father Hx Cancer: Father Hx Diabetes: Mother, Brother/Sister, Grandparents Hx Heart Disease: Mother Hx HTN: Mother, Brother/Sister Hx Liver Disease: Brother/Sister Hx Stroke: Grandparents Physical Exam - General General Appearance: Alert, Oriented x3, Cooperative, Moderate distress, Other ( Appears jaundiced on examination, uncomfortable due to pain symptoms.) Limitations: No limitations - Head Head exam: Atraumatic, Normocephalic, Normal inspection Head exam detail: negative: Abrasion, Contusion, Sauer's sign, General tenderness, Hematoma, Laceration - Eye Eye exam: Normal appearance. negative: Conjunctival injection, Periorbital swelling, Periorbital tenderness, Scleral icterus - ENT Ear exam: negative: Auricular hematoma, Auricular trauma Nasal Exam: negative: Active bleeding, Discharge, Dried blood, Foreign body Mouth exam: negative: Drooling, Laceration, Muffled voice, Tongue elevation - Neck Neck exam: Normal inspection. negative: Meningismus, Tenderness - Respiratory Respiratory exam: Normal lung sounds bilaterally. negative: Rales, Respiratory distress, Rhonchi, Stridor - Cardiovascular Cardiovascular Exam: Regular rate, Normal rhythm, Normal heart sounds - GI/Abdominal GI/Abdominal exam: Soft, Tenderness, Other (TTP over the RUQ on examination). negative: Rebound, Rigid - Rectal Rectal exam: Deferred - exam: Deferred - Extremities Extremities exam: Normal inspection. negative: Pedal edema, Tenderness - Back Back exam: Reports: CVA tenderness (R). Denies: CVA tenderness (L) - Neurological Neurological exam: Alert, Normal gait, Oriented X3 - Psychiatric Psychiatric exam: Normal affect, Normal mood - Skin Skin exam: Normal color. negative: Abrasion Type of lesion: negative: abrasion Course Vital Signs 09/20/17 03:35 Temperature 100.0 F H Pulse Rate [ 62 Pulse Ox Probe] Respiratory 18 Rate Blood Pressure 108/62 [Left Arm] Pulse Ox 95 - Reevaluation(s) Reevaluation #1: 09/20/17 03:50 CT Abdomen and Pelvis: Moderate ascites Distended gallbladder with stone in the neck Hepatomegaly/splenomegaly Reevaluation #2: 09/20/17 04:36 Labs reviewed: WBC 5.9 Hgb 11.8 (12.2 09/18) Biliruben 8.8 (up from 3.9 09/18) Lipase 1154 Symptoms appear c/w worsening obstructive jaundice. Will initiate transfer to for surgical evaluation. Reevaluation #3: 09/20/17 04:[address] Case was discussed with Dr[address] Bauer, will accept transfer ER-ER for surgical evaluation. Medical Decision Making - Lab Data Result diagrams: 09/20/17 03:50 09/20/17 03:50 Disposition Disposition: Transfer Clinical Impression: Hyperbilirubinemia Cholelithiasis Qualifiers: Cholelithiasis location: bile duct Cholecystitis presence: with cholecystitis Cholecystitis acuity: acute and chronic Biliary obstruction: with biliary obstruction Qualified Code(s): K80.47 - Calculus of bile duct with acute and chronic cholecystitis with obstruction Pancreatitis Qualifiers: Chronicity: acute Pancreatitis type: biliary Acute pancreatitis complication: unspecified Qualified Code(s): K85.10 - Biliary acute pancreatitis without necrosis or infection Disposition: Acute Care Hospital Transfer Transfer To: [facility] Reason For Transfer: Surgical evaluation Accepting Physician: Juancarlos Time Discussed w/Accepting Physician: 04:59 Condition: (2) Stable Forms: Patient Portal Access Time of Disposition: 04:59 Quality - Quality Measures Quality Measures: N/A - Blood Pressure Screening Does Patient Have Any of the Following: No Blood Pressure Classification: Normal BP Reading Systolic Measurement: 107 Diastolic Measurement: 65 Screening for High Blood Pressure: < Normal BP, F/U Not Required > [G8783]
[2017-09-20 04:01] LABS: BASO % 0.3 % (0-6); EOS % 1.9 % (0-6); HEMATOCRIT 35.2 % (42.0-52.0); HEMOGLOBIN 11.8 gm/dl (14.0-18.0); LYMPH % 4.6 % (16-45); MEAN CELL VOLUME 99.4 fl (81-97); MEAN CORPUSCULAR HEMOGLOBIN 33.3 pg (27-33); MEAN CORPUSCULAR HGB CONC 33.5 g/dl (32-36); MEAN PLATELET VOLUME 11.4 fl (7.4-10.4); MONO % 7.2 % (0-9); PLATELET COUNT 64 K/uL (130-400); RED BLOOD COUNT 3.54 M/uL (4.40-5.70); RED CELL DISTRIBUTION WIDTH 15.7 % (11.5-14.5); WHITE BLOOD COUNT W/O DIFF 5.9 K/uL (4.2-12.2)
[2017-09-20 04:28] LABS: BLOOD UREA NITROGEN 26 mg/dL (8-23)
[2017-09-20 04:29] LABS: CREATININE 0.9 mg/dL (0.7-1.2); EST GLOMERULAR FILTRATION RATE > 60 mL/min; TOTAL PROTEIN 5.6 g/dL (6.6-8.7)
[2017-09-20 04:31] LABS: GLUCOSE,RANDOM 132 mg/dL (74-109)
[2017-09-20 04:34] LABS: ALB/GLOB RATIO 0.9 (1.1-1.8); ALBUMIN 2.7 g/dL (4.0-5.0); ALKALINE PHOSPHATASE 143 U/L (40-129); ALT/SGPT 29 U/L (<41); AST/SGOT 55 U/L (10.0-50.0)
[2017-09-20 04:42] LABS: LIPASE 1154 U/L (13-60)
[2017-09-20 05:11] LABS: INR 2.8; PROTHROMBIN TIME (PATIENT) 30.8 SECONDS (9.5-12.1)
== END 2017-09-20 05:41 | disposition short-term general hospital (02) ==
LOC: ER 03:31
DX: K80.47 Calculus of bile duct with acute and chronic cholecystitis with obstruction (principal); E80.6 Other disorders of bilirubin metabolism; M54.6 Pain in thoracic spine; R11.2 Nausea with vomiting, unspecified; I48.91 Unspecified atrial fibrillation; I50.9 Heart failure, unspecified; E11.9 Type 2 diabetes mellitus without complications; Z79.01 Long term (current) use of anticoagulants; Z87.891 Personal history of nicotine dependence; Z79.4 Long term (current) use of insulin
CPT/HCPCS: 80053; 83690; 85027; 85610; 96361; 96374; 96375; 96376; 99285; J2270; J2405; J7030

== ENCOUNTER 2017-11-06 03:49 | Emergency (ER) | payer MEDICARE ==
[2017-11-06] MEDS ORDERED: IPRATROPIUM/ALBUTEROL (0.5MG/3MG) NEB INH ONE (04:14)
--- NOTE | 2017-11-06 04:19 | Emergency Department Record ---
History of Present Illness - General Chief complaint: General Stated complaint: ABDOMINAL PAIN Time Seen by Provider: 11/06/17 04:02 Source: Patient Mode of Arrival: Wheelchair - History of Present Illness Initial comments: The patient has liver failure and has had to have fluid withdrawn from his abdomen several times in the past. He states he has a blood clot in his portal vein and is on blood thinners due to his chronic atrial fibrillation. The past 3 weeks he has had a 20 pound weight gain, his abdomen is distended, and he is unable to lay flat or exert himself for worsening shortness of breath that it causes. He also feels very lightheaded when he first gets up and it takes him a while to recover. He states he has a doctor Dior Pacheco at [facility] in [place] that takes care of his liver disease. He denies fever, vomiting, chest pain, cough. He is hoping to go to [facility] to see Dr Pacheco his liver specialist MD Complaint: Difficulty walking, Generalized weakness - Jeannine Coma Scale Eye Response: (4) Open spontaneously Motor Response: (6) Obeys commands Verbal Response: (5) Oriented Jeannine Total: 15 - Related Data Previous Rx's Medication Instructions Recorded Glimepiride [Amaryl] 2 mg PO BID #60 tablet 06/11/17 Insulin Glargine,Hum.rec.anlog 60 unit SQ DAILY #0 06/11/17 [Lantus] Tamsulosin HCl [Flomax] 0.4 mg PO DAILY #30 cap.er.24h 08/11/17 Hydrocodone/Acetaminophen [[place] 1 each PO Q6HR #20 tablet 08/16/17 5-325 Tablet] Hydrocodone/Acetaminophen [[place] 1 each PO QID #12 tablet 09/18/17 5-325 Tablet] Allergies Allergy/AdvReac Type Severity Reaction Status Date / Time Penicillins Allergy RASH Verified 09/18/17 12:10 Travel Screening - Travel/Exposure Within Last 30 Days Have you traveled within the last 30 days?: No - Travel/Exposure Within Last Year Have you traveled outside the [place] in the last year?: No - Additonal Travel Details Have you been exposed to anyone with a communicable illness?: No - Travel Symptoms Symptom Screening: None Review of Systems Reviewed: No additional complaints except as noted below Constitutional: Reports: As per HPI. Denies: Chills, Fever, Malaise, Night sweats, Weakness, Weight change Eyes: Reports: As per HPI. Denies: Eye discharge, Eye pain, Photophobia, Vision change ENT: Reports: As per HPI. Denies: Congestion, Dental pain, Ear pain, Epistaxis , Hearing loss, Throat pain Respiratory: Reports: As per HPI. Denies: Cough, Dyspnea, Hemoptysis, Stridor, Wheezes Cardiovascular: Reports: As per HPI. Denies: Arrhythmia, Chest pain, Dyspnea on exertion, Edema, Murmurs, Orthopnea, Palpitations, Paroxysmal nocturnal dyspnea, Rheumatic Fever, Syncope Endocrine: Reports: As per HPI. Denies: Fatigue, Heat or cold intolerance, Polydipsia, Polyuria Gastrointestinal: Reports: As per HPI. Denies: Abdominal pain, Constipation, Diarrhea, Hematemesis, Hematochezia, Melena, Nausea, Vomiting Genitourinary: Reports: As per HPI. Denies: Dysuria, Frequency, Hematuria, Incontinence, Retention, Testicular pain, Testicular mass, Urgency Musculoskeletal: Reports: As per HPI. Denies: Arthralgia, Back pain, Gout, Joint swelling, Myalgia, Neck pain Skin: Reports: As per HPI. Denies: Bruising, Change in color, Change in hair/ nails, Lesions, Pruritus, Rash Neurological: Reports: As per HPI. Denies: Abnormal gait, Confusion, Headache, Numbness, Paresthesias, Seizure, Tingling, Tremors, Vertigo, Weakness Psychiatric: Reports: As per HPI. Denies: Anxiety, Auditory hallucinations, Depression, Homicidal thoughts, Suicidal thoughts, Visual hallucinations Hematological/Lymphatic: Reports: As per HPI. Denies: Anemia, Blood Clots, Easy bleeding, Easy bruising, Swollen glands Past Medical History - SOCIAL HISTORY Smoking Status: Former smoker Alcohol Use: None Drug Use: None - RESPIRATORY Hx Respiratory Disorders: No - CARDIOVASCULAR Hx Cardio Disorders: Yes Hx Abnormal EKG: Yes Hx Cardiac Cath: Yes Hx Chest Pain: No Hx CHF: Yes Hx Deep Vein Thrombosis: Yes Hx Edema: Yes Hx Heart Attack: No Hx Hypertension: Yes Hx Hypotension: Yes Hx Irregular Heartbeat: Yes (A-fib) Hx Palpitations: No Hx Pacemaker/Defib: No Hx Vascular Disease: No Comment:: HIGH CHOLESTEROL - NEURO Hx Neuro Disorders: No Hx Brain Tumor: No Hx CVA: No Hx Dementia: No Hx Dizziness: No Hx Headaches: No Hx Neuropathy: No Hx Parkinson's Disease: No Hx Seizures: No Hx Speech Problem: No Hx TIA: No - GI Hx GI Disorders: Yes Hx Abdominal Pain: Yes Hx Celiac Disease: No Hx Crohn's Disease: No Hx Diverticulitis: Yes Hx GI Bleed: No Hx Reflux: No Hx Hepatitis/Jaundice: No Hx Hiatal Hernia: No Hx Irritable Bowel: No Hx Liver Disease: Yes (Hepatic Encephalopathy; portal vein thrombosis) Hx Nausea/Vomiting: No Hx Obstructive Bowel: No Hx Pancreatitis: No Hx Rectal Bleeding: No Hx Ulcer: No Hx Wt Loss/Wt Gain: No Hx of Polyps: Yes Comment:: Portal Vein Thrombosis - Hx Genitourinary Disorders: No Hx Bladder Problem: No Hx Dialysis: No Hx Kidney Stones: No Hx Prostate Problems: No Hx Renal Disease: No Hx UTI: Yes - ENDOCRINE Hx Endocrine Disorders: Yes Hx Diabetes: Yes Hx Thyroid Disease: No - MUSCULOSKELETAL Hx Musculoskeletal Disorders: No Hx Arthritis: Yes Hx Back Injury: No Hx Fibromyalgia: No Hx Gout: No Hx Musculoskeletal Disease: No Hx Osteoporosis: No - PSYCH Hx Psych Problems: No Hx Anxiety: No Hx Behavior Problems: No Hx Depression: No Hx Emotional Abuse: No Hx Sexual Abuse: No Hx Suicide Attempt: No - HEMATOLOGY/ONCOLOGY Hx Hematology/Oncology Disorders: Yes Hx Anemia: No Hx Blood Disorders: Yes (low platelets; ITP) Hx Bruising: No Hx Cancer: Yes (skin) Hx Chemotherapy: No Hx Radiation Therapy: No Hx Clotting Problems: Yes Hx Sickle Cell Disease: No Hx Unexplained Bleeding: No Hx Blood Transfusions: No Hx Blood Transfusion Reaction: No Comment:: MELANOMA Family Medical History Any Significant Family History?: No Hx Alcohol Use: Father Hx Cancer: Father Hx Diabetes: Mother, Brother/Sister, Grandparents Hx Heart Disease: Mother Hx HTN: Mother, Brother/Sister Hx Liver Disease: Brother/Sister Hx Stroke: Grandparents Physical Exam - General General Appearance: Alert, Oriented x3, Cooperative, No acute distress (when completely at rest), Other (jaundiced ) - Head Head exam: Normal inspection - Eye Eye exam: Normal appearance, PERRL, EOMI Pupils: Normal accommodation - ENT ENT exam: Normal exam, Mucous membranes moist, Normal external ear exam, Normal orophraynx, TM's normal bilaterally Ear exam: Normal external inspection. negative: External canal tenderness Nasal Exam: Normal inspection. negative: Discharge, Sinus tenderness Mouth exam: Normal external inspection, Tongue normal Teeth exam: Normal inspection. negative: Dental caries Throat exam: Normal inspection. negative: Tonsillar erythema, Tonsillar exudate - Neck Neck exam: Normal inspection, Full ROM. negative: Lymphadenopathy, Meningismus , Tenderness - Respiratory Respiratory exam: Normal lung sounds bilaterally. negative: Respiratory distress, Wheezes - Cardiovascular Cardiovascular Exam: Regular rate, Normal rhythm, Normal heart sounds - GI/Abdominal GI/Abdominal exam: Normal bowel sounds, Distended (tympanitic with fluid waves) , Tenderness (generalized tenderness throughout with fluid waves), Other (tense throughout abdomen with shifting fluid waves ). negative: Rebound - Rectal Rectal exam: Deferred - exam: Deferred - Extremities Extremities exam: Normal inspection, Full ROM, Normal capillary refill, Pedal edema (bilateral pitting edema half way up shins. ). negative: Calf tenderness , Tenderness - Back Back exam: Reports: Normal inspection, Full ROM. Denies: CVA tenderness (R), CVA tenderness (L), Muscle spasm, Rash noted, Tenderness - Neurological Neurological exam: Alert, CN II-XII intact, Normal gait, Oriented X3, Reflexes normal, Other (no asteriskis) - Psychiatric Psychiatric exam: Normal affect, Normal mood - Skin Skin exam: Dry, Intact, Normal color, Warm. negative: Cyanosis, Diaphoretic Course Vital Signs 11/06/17 03:52 Pulse Rate 65 Respiratory 20 Rate Blood Pressure 81/63 Pulse Ox 100 - Reevaluation(s) Reevaluation #1: Patient is unable to urinate after two attempts. Discussed case with in [facility] who accepts patient in transfer for a direct admit. Dr. Pacheco, the patient's physician, is to be consulted in the morning for Gastroenterology. 11/06/17 05:16 Reevaluation #2: Results discussed with patient and his who are in agreement with this plan. 11/06/17 05:19 Medical Decision Making - Management Options MDM Management: Additional Work-up Planned (e.g. ADM/Transfer/OP Study) ( Transfer to [facility] in [place] for paracentesis and GI evaluation Dr. Pacheco/Dr. Israel) - Data Complexity MDM Data: Labs Ordered and/or Reviewed, X-Ray Ordered and/or Reviewed (Portable CXR: Negative per ED physician), EKG Ordered and/or Reviewed - Lab Data Result diagrams: 11/06/17 04:00 11/06/17 04:00 - EKG Data -: EKG Interpreted by Me EKG: No Acute Changes (old inferior NV; poor R wave progression) Disposition Disposition: Transfer Clinical Impression: Hyperbilirubinemia, Hepatic encephalopathy, IDDM (insulin dependent diabetes mellitus), Dyspnea on exertion, Ascites due to alcoholic hepatitis Cholelithiasis Qualifiers: Cholelithiasis location: bile duct Cholecystitis presence: without cholecystitis Biliary obstruction: without biliary obstruction Qualified Code(s) : K80.50 - Calculus of bile duct without cholangitis or cholecystitis without obstruction Disposition: Acute Care Hospital Transfer Decision to Admit Date: 11/06/17 Decision to Admit Time: 05:23 Transfer To: [facility] Reason For Transfer: liver failure, abdominal ascites Accepting Physician: Dr. Israel Company Doctor; Dr. Pacheco Program Evaluator Time Discussed w/Accepting Physician: 05:29 Condition: (2) Stable Quality - Quality Measures Quality Measures: N/A - Blood Pressure Screening Does Patient Have Any of the Following: No Blood Pressure Classification: Normal BP Reading Systolic Measurement: 81 Diastolic Measurement: 63 Screening for High Blood Pressure: < Normal BP, F/U Not Required > [G8783]
[2017-11-06] MEDS ORDERED: ONDANSETRON 4 MG ODT TABLET SL ONE (04:23)
[2017-11-06 04:24] LABS: BASO % 0.7 % (0-6); EOS % 1.7 % (0-6); GRAN % 66.7 % (47-80); HEMATOCRIT 34.7 % (42.0-52.0); HEMOGLOBIN 11.7 gm/dl (14.0-18.0); LYMPH % 21.8 % (16-45); MEAN CELL VOLUME 97.7 fl (81-97); MEAN CORPUSCULAR HEMOGLOBIN 32.9 pg (27-33); MEAN CORPUSCULAR HGB CONC 33.7 g/dl (32-36); MEAN PLATELET VOLUME 11.2 fl (7.4-10.4); MONO % 9.1 % (0-9); PLATELET COUNT 73 K/uL (130-400); RED BLOOD COUNT 3.55 M/uL (4.40-5.70); RED CELL DISTRIBUTION WIDTH 16.1 % (11.5-14.5); WHITE BLOOD COUNT W/O DIFF 4.2 K/uL (4.2-12.2)
[2017-11-06 04:34] LABS: BLOOD UREA NITROGEN 13 mg/dL (8-23); EST GLOMERULAR FILTRATION RATE > 60 mL/min; TOTAL PROTEIN 6.2 g/dL (6.6-8.7)
[2017-11-06 04:36] LABS: GLUCOSE,RANDOM 201 mg/dL (74-109)
[2017-11-06 04:39] LABS: ALB/GLOB RATIO 0.8 (1.1-1.8); ALBUMIN 2.8 g/dL (4.0-5.0); ALKALINE PHOSPHATASE 194 U/L (40-129); ALT/SGPT 27 U/L (<41); AST/SGOT 46 U/L (10.0-50.0)
[2017-11-06 04:44] LABS: INR 1.7; PARTIAL THROMBOPLASTIN TIME 32.8 SECONDS (24.5-39.1); PROTHROMBIN TIME (PATIENT) 18.5 SECONDS (9.5-12.1)
--- NOTE | 2017-11-07 13:49 | RADIOLOGY REPORT ---
EXAM: PORTABLE CHEST HISTORY: DYSPNEA. TECHNIQUE: AP portable view of the chest was obtained. Comparison: Two view chest 06/09/17. FINDINGS: Cardiomegaly similar to before. Elevation of the right hemidiaphragm. No definite acute infiltrate is seen. No pleural effusion or pneumothorax evident. IMPRESSION: CARDIOMEGALY. ELEVATION OF THE RIGHT HEMIDIAPHRAGM. NO ACUTE INFILTRATE EVIDENT. JOB NUMBER: [id number] MTDD
== END 2017-11-06 06:16 | disposition short-term general hospital (02) ==
LOC: ER 03:49
DX: K72.90 Hepatic failure, unspecified without coma (principal); K70.11 Alcoholic hepatitis with ascites; K80.50 Calculus of bile duct without cholangitis or cholecystitis without obstruction; E80.6 Other disorders of bilirubin metabolism; R06.00 Dyspnea, unspecified; R42 Dizziness and giddiness; R53.1 Weakness; R26.2 Difficulty in walking, not elsewhere classified; I50.9 Heart failure, unspecified; I10 Essential (primary) hypertension; I48.91 Unspecified atrial fibrillation; E11.9 Type 2 diabetes mellitus without complications; Z79.4 Long term (current) use of insulin; Z87.891 Personal history of nicotine dependence; Z79.01 Long term (current) use of anticoagulants
CPT/HCPCS: 71045; 80053; 82140; 83880; 85025; 85379; 85610; 85730; 93005; 93010; 94640; 99285

== ENCOUNTER 2017-12-30 00:47 | Inpatient (IN) | payer MEDICARE ==
--- NOTE | 2017-12-30 01:02 | Emergency Department Record ---
History of Present Illness - General Chief complaint: Nausea, Vomiting, Diarrhea Stated complaint: NAUSEA, DIZZY-HX OF LIVER FAILURE Time Seen by Provider: 12/30/17 00:56 Source: Patient Mode of Arrival: Wheelchair Limitations: No limitations - History of Present Illness Initial comments: 77 yo male presents to ED for evaluation of weakness and nausea symptoms which began ealier today. Patient reports a history of liver failure that he is being treated for through [facility] with a GI specialist, has been previously diagnosed with ascites, liver failure, and hepatic vein throbosis. MD complaint: Nausea Onset/Timin -: Hour(s) Associated Abdominal Pain: No Radiation: None Severity: Moderate Consistency: Constant Improves with: None Worsens with: Other (Activity) Context: Anticoagulant use Associated Symptoms: Denies other symptoms - Related Data Home Medications Medication Instructions Recorded Confirmed Last Taken Glimepiride [Amaryl] 4 mg PO BID 12/30/17 12/30/17 12/29/17 Ursodiol [Actigall] 300 mg PO BID 12/30/17 12/30/17 12/29/17 Previous Rx's Medication Instructions Recorded Insulin Glargine,Hum.rec.anlog 60 unit SQ DAILY #0 06/11/17 [Lantus] Tamsulosin HCl [Flomax] 0.4 mg PO DAILY #30 cap.er.24h 08/11/17 Hydrocodone/Acetaminophen [[place] 1 each PO QID #12 tablet 09/18/17 5-325 Tablet] Allergies Allergy/AdvReac Type Severity Reaction Status Date / Time Penicillins Allergy RASH Verified 09/18/17 12:10 Review of Systems Constitutional: Reports: Weakness. Denies: Chills, Fever, Malaise, Night sweats Eyes: Denies: Eye discharge, Eye pain ENT: Denies: Congestion, Ear pain, Epistaxis Respiratory: Denies: Cough, Dyspnea Cardiovascular: Denies: Chest pain, Dyspnea on exertion Endocrine: Denies: Fatigue, Heat or cold intolerance Gastrointestinal: Reports: Nausea. Denies: Abdominal pain, Vomiting Genitourinary: Denies: Incontinence, Retention Musculoskeletal: Denies: Arthralgia, Back pain, Gout, Joint swelling Skin: Denies: Bruising, Change in color Neurological: Reports: Confusion, Weakness (Generalized). Denies: Abnormal gait , Headache, Seizure Psychiatric: Denies: Anxiety Hematological/Lymphatic: Denies: Anemia, Blood Clots Past Medical History - SOCIAL HISTORY Smoking Status: Former smoker Drug Use: None - RESPIRATORY Hx Respiratory Disorders: No - CARDIOVASCULAR Hx Cardio Disorders: Yes Hx Abnormal EKG: Yes Hx Cardiac Cath: Yes Hx Chest Pain: No Hx CHF: Yes Hx Deep Vein Thrombosis: Yes Hx Edema: Yes Hx Heart Attack: No Hx Hypertension: Yes Hx Hypotension: Yes Hx Irregular Heartbeat: Yes (A-fib) Hx Palpitations: No Hx Pacemaker/Defib: No Hx Vascular Disease: No Comment:: HIGH CHOLESTEROL - NEURO Hx Neuro Disorders: No Hx Brain Tumor: No Hx CVA: No Hx Dementia: No Hx Dizziness: No Hx Headaches: No Hx Neuropathy: No Hx Parkinson's Disease: No Hx Seizures: No Hx Speech Problem: No Hx TIA: No - GI Hx GI Disorders: Yes Hx Abdominal Pain: Yes Hx Celiac Disease: No Hx Crohn's Disease: No Hx Diverticulitis: Yes Hx GI Bleed: No Hx Reflux: No Hx Hepatitis/Jaundice: No Hx Hiatal Hernia: No Hx Irritable Bowel: No Hx Liver Disease: Yes (Hepatic Encephalopathy; portal vein thrombosis) Hx Nausea/Vomiting: No Hx Obstructive Bowel: No Hx Pancreatitis: No Hx Rectal Bleeding: No Hx Ulcer: No Hx Wt Loss/Wt Gain: No Hx of Polyps: Yes Comment:: Portal Vein Thrombosis - Hx Genitourinary Disorders: No Hx Bladder Problem: No Hx Dialysis: No Hx Kidney Stones: No Hx Prostate Problems: No Hx Renal Disease: No Hx UTI: Yes - ENDOCRINE Hx Endocrine Disorders: Yes Hx Diabetes: Yes Hx Thyroid Disease: No - MUSCULOSKELETAL Hx Musculoskeletal Disorders: No Hx Arthritis: Yes Hx Back Injury: No Hx Fibromyalgia: No Hx Gout: No Hx Musculoskeletal Disease: No Hx Osteoporosis: No - PSYCH Hx Psych Problems: No Hx Anxiety: No Hx Behavior Problems: No Hx Depression: No Hx Emotional Abuse: No Hx Sexual Abuse: No Hx Suicide Attempt: No - HEMATOLOGY/ONCOLOGY Hx Hematology/Oncology Disorders: Yes Hx Anemia: No Hx Blood Disorders: Yes (low platelets; ITP) Hx Bruising: No Hx Cancer: Yes (skin) Hx Chemotherapy: No Hx Radiation Therapy: No Hx Clotting Problems: Yes Hx Sickle Cell Disease: No Hx Unexplained Bleeding: No Hx Blood Transfusions: No Hx Blood Transfusion Reaction: No Comment:: MELANOMA Family Medical History Hx Alcohol Use: Father Hx Cancer: Father Hx Diabetes: Mother, Brother/Sister, Grandparents Hx Heart Disease: Mother Hx HTN: Mother, Brother/Sister Hx Liver Disease: Brother/Sister Hx Stroke: Grandparents Physical Exam - General General Appearance: Alert, Oriented x3, Cooperative, Moderate distress Limitations: No limitations - Head Head exam: Atraumatic, Normocephalic, Normal inspection Head exam detail: negative: Abrasion, Contusion, Sauer's sign, General tenderness, Hematoma, Laceration - Eye Eye exam: Normal appearance. negative: Conjunctival injection, Periorbital swelling, Periorbital tenderness, Scleral icterus - ENT Ear exam: negative: Auricular hematoma, Auricular trauma Nasal Exam: negative: Active bleeding, Discharge, Dried blood, Foreign body Mouth exam: negative: Drooling, Laceration, Muffled voice, Tongue elevation - Neck Neck exam: Normal inspection. negative: Meningismus, Tenderness - Respiratory Respiratory exam: Normal lung sounds bilaterally. negative: Rales, Respiratory distress, Rhonchi, Stridor - Cardiovascular Cardiovascular Exam: Regular rate, Normal rhythm, Normal heart sounds - GI/Abdominal GI/Abdominal exam: Soft, Other (Ascites present on examination). negative: Rebound, Rigid, Tenderness - Rectal Rectal exam: Deferred - exam: Deferred - Extremities Extremities exam: Pedal edema (2+ bialterally). negative: Tenderness - Back Back exam: Denies: CVA tenderness (R), CVA tenderness (L) - Neurological Neurological exam: Alert. negative: Motor sensory deficit - Psychiatric Psychiatric exam: Flat affect - Skin Skin exam: Normal color. negative: Abrasion Type of lesion: negative: abrasion Course - Reevaluation(s) Reevaluation #1: 12/30/17 01:24 EKG: NSR 57 Indeterminate axis, no acute ST-T wave changes No change from previous:11/06/17 Reevaluation #2: 12/30/17 01:35 Laboratory studies were reviewed: Ammonia 273 INR 2.3 Albumin 2.8 GFR 48 Hgb 11.8. Patient is back from CT, preliminary review appears negative for an acute process. Patient's was querried about any recent medication changes, reports that he has not been taking his Xifaxan BID as scheduled due to the cost for the past 3 weeks. Patient also has not taken his Lactulose TID today due to loose stool today. Ammonia is likely elevated due to medication non-compliance. Will admit for hepatic encephalopathy likely due to medication non-compliance. Reevaluation #3: 12/30/17 02:43 CT Head: Nonspecific white matter changes involving deep white matter Age related atrophy Benign miliary osteoma involving the scalp Reevaluation #4: 12/30/17 06:[address] Croft, will accept admission at this time. Medical Decision Making - Lab Data Result diagrams: 12/30/17 01:05 12/30/17 01:05 Disposition Disposition: Admit Clinical Impression: Hepatic encephalopathy, IDDM (insulin dependent diabetes mellitus) Disposition: Still a Patient at [facility] Decision to Admit: Admit from ER Decision to Admit Date: 12/30/17 Decision to Admit Time: 01:47 Condition: (2) Stable Time of Disposition: 01:47 Quality - Quality Measures Quality Measures: N/A - Blood Pressure Screening Does Patient Have Any of the Following: No Blood Pressure Classification: Normal BP Reading Systolic Measurement: 109 Diastolic Measurement: 67 Screening for High Blood Pressure: < Normal BP, F/U Not Required > [G8783]
[2017-12-30] MEDS ORDERED: ONDANSETRON HCL IV 4 MG/2 ML VIAL IVP ONE (01:09)
[2017-12-30 01:17] LABS: HEMATOCRIT 34.4 % (42.0-52.0); HEMOGLOBIN 11.8 gm/dl (14.0-18.0); MEAN CELL VOLUME 95.6 fl (81-97); MEAN CORPUSCULAR HGB CONC 34.3 g/dl (32-36); MEAN PLATELET VOLUME 10.1 fl (7.4-10.4); PLATELET COUNT 75 K/uL (130-400); RED CELL DISTRIBUTION WIDTH 15.3 % (11.5-14.5); WHITE BLOOD COUNT W/O DIFF 4.9 K/uL (4.2-12.2)
[2017-12-30 01:20] LABS: MEAN CORPUSCULAR HEMOGLOBIN 32.7 pg (27-33)
[2017-12-30 01:25] LABS: CREATININE 1.5 mg/dL (0.7-1.2)
[2017-12-30 01:26] LABS: BILIRUBIN,TOTAL 1.5 mg/dL (0.2-1.0); TOTAL PROTEIN 6.3 g/dL (6.6-8.7)
[2017-12-30 01:29] LABS: INR 2.3; PROTHROMBIN TIME (PATIENT) 23.1 SECONDS (9.5-12.1)
[2017-12-30 01:31] LABS: ALB/GLOB RATIO 0.8 (1.1-1.8); ALBUMIN 2.8 g/dL (4.0-5.0)
[2017-12-30 01:38] LABS: ANISOCYTOSIS 1+; PLATELET ESTIMATE DECREASED (NORMAL)
[2017-12-30] MEDS ORDERED: LACTULOSE 20 GM/30 ML UDC PO ONE (01:53)
[2017-12-30] MEDS: PANTOPRAZOLE SODIUM 40 MG TABLET PO SCH (06:24)
[2017-12-30] MEDS: GLIMEPIRIDE 2 MG TABLET PO SCH ×2 (07:42→17:08)
[2017-12-30] MEDS ORDERED: GLIMEPIRIDE 2 MG TABLET PO SCH (07:45)
[2017-12-30] MEDS: SPIRONOLACTONE 25 MG TAB PO SCH (09:54)
[2017-12-30] MEDS: TAMSULOSIN HCL 0.4 MG CAP.ER.24H PO SCH (09:54)
[2017-12-30] MEDS: RIFAXIMIN 550 MG TABLET PO SCH ×2 (09:54→21:41)
[2017-12-30] MEDS: LACTULOSE 20 GM/30 ML UDC PO SCH ×3 (09:54→21:41)
[2017-12-30] MEDS ORDERED: SPIRONOLACTONE 25 MG TAB PO SCH (10:00)
[2017-12-30 10:01] LABS: URINE APPEARANCE CLEAR; URINE BILIRUBIN NEGATIVE (NEGATIVE); URINE BLOOD NEGATIVE (NEGATIVE); URINE COLOR YELLOW; URINE KETONE NEGATIVE (NEGATIVE); URINE LEUKOCYTE ESTERASE NEGATIVE (NEGATIVE); URINE NITRITE NEGATIVE (NEGATIVE); URINE PROTEIN NEGATIVE (NEGATIVE)
[2017-12-30] MEDS: LEVEMIR FLEXTOUCH 100 UNIT/ML INSULIN PEN SQ SCH (10:08)
[2017-12-30] MEDS: TORSEMIDE 20 MG TABLET PO SCH ×2 (10:11→17:08)
--- NOTE | 2017-12-30 10:37 | CT SCAN REPORT ---
EXAM: EMERGENCY HEAD CT WITHOUT CONTRAST HISTORY: NAUSEA, ANTICOAGULATED, DIZZY. TECHNIQUE: Axial CT scan of the head was performed without IV contrast. A preliminary report was provided by [facility]. Comparison: Head CT 06/14/17. FINDINGS: No definite acute intracranial hemorrhage identified. No focal mass effect or midline shift apparent. Generalized atrophy with chronic appearing deep white matter changes, nonspecific, but likely representing some chronic small vessel deep white matter ischemic disease. No definite acute infarct or intracranial mass lesion seen. No depressed calvarial fracture evident. Enumerable tiny calcifications again seen in the scalp. IMPRESSION: 1. GENERALIZED ATROPHY WITH CHRONIC APPEARING DEEP WHITE MATTER CHANGES. 2. NO DEFINITE ACUTE INTRACRANIAL HEMORRHAGE OR FOCAL MASS EFFECT IDENTIFIED. 3. ENUMERABLE SMALL PUNCTATE CALCIFICATIONS IN THE SCALP. JOB NUMBER: [id number] MTDD
--- NOTE | 2017-12-30 13:50 | History and Physical Report ---
DATE: 12/30/2017 at 8:22 a.m. DATE OF ADMISSION: 12/30/2017 CHIEF COMPLAINT: Confusion, nausea, vomiting. There is a history of liver failure, cirrhosis with ascites. HISTORY OF PRESENT ILLNESS: The patient is a 77-year-old male who presented to the emergency department with nausea, dizziness, confusion which started last night. The stated he woke up and said he had to go to the hospital. He was evaluated in the emergency department by Dr. Trevino with a diagnosis of hepatic encephalopathy, noncompliant with his medications. stopped the rifaximin, went from 2 times a day to 1 time a day because of cost, about 3 weeks ago and he is only taking his lactulose once a day because of loose stools. The patient has a history of liver failure. He has been evaluated at [facility] for possible transplant and was deemed not a transplant case because of his comorbid conditions. 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 PAST MEDICAL HISTORY: Diabetes mellitus with insulin use, idiopathic thrombocytopenia, platelet count runs between 75,000 to 80,000, fatty liver disease, cirrhosis with ascites and periodically he has to have paracentesis done every 2-3 weeks, hypertension, hypercholesterolemia, coronary artery disease, and he is an ex-smoker. PAST SURGICAL HISTORY: Appendectomy, tonsillectomy, carpal tunnel, colonoscopy. MEDICATIONS: 1. Actigall 300 mg b.i.d. 2. Coumadin 4 mg a day. 3. Demadex 20 mg b.i.d. 4. Flomax 0.4 mg daily. 5. Aldactone 100 mg daily. 6. Protonix 40 mg daily. 7. Lactulose 60 mL 3 times a day to have 2-3 loose stools a day. 8. Lantus insulin 60 units daily. 9. Amaryl 4 mg b.i.d. before meals. 10. He is on rifaximin (Xifaxan) 550 mg b.i.d. His brought it down to once a day 3 weeks ago because of cost. She said he was doing okay for a while. ALLERGIES: PENICILLIN. FAMILY/PSYCHOSOCIAL HISTORY: The father had cancer. No significant history. He is a former smoker. No drug or alcohol use in the past. He was never a heavy drinker. He had fatty liver disease. REVIEW OF SYSTEMS: HEENT: No congestion. Sore throat. No cough or cold. No visual problems. Cardiovascular: He denies any chest pain. He had an episode of AFib in the past but he is in normal sinus rhythm now. Respiratory: No shortness of breath. No chest pain. Gastrointestinal: He had nausea, vomiting, and loose stools but that is from his lactulose, the loose stools. Genitourinary: No dysuria, hematuria, frequency, or burning on urination. Musculoskeletal: Moving all 4 extremities. He does have osteoarthritis. Neurological: No CVA, paralysis, or paresthesias. Endocrine: He has diabetes mellitus type 2 and on insulin. No hypothyroidism. Integument: No rash, ulcers, change in moles, or yellow skin. His legs are swollen. PHYSICAL EXAMINATION: VITALS: Temperature 98.5, pulse 55, blood pressure 111/61, respiratory rate 16, pulse ox 98% on room air. Weight 248 pounds. We will obtain a daily weight. HEENT: Pupils are equal, round, and reactive to light and accommodation. Extraocular muscles are intact. Throat is clear. Nose is clear. Tympanic membranes are paredes. NECK: Supple. No jugular venous distention. No hepatojugular reflux. No carotid bruits. CARDIOVASCULAR: Regular rate and rhythm. RESPIRATORY: Breath sounds equal bilaterally. ABDOMEN: Distended slightly but soft. No pain. No rebound or rigidity. No signs of peritonitis. EXTREMITIES: Edema 1+ to 2+ bilaterally. No pain on palpation of the calves or thighs. BREASTS: Normal male breasts. RECTAL: Exam deferred. GENITALIA: Deferred. NEUROLOGIC: Cranial nerves II-XII intact. No gross defects. Sensation normal, strength normal. Deep tendon reflexes equal bilaterally with Babinski negative. MENTAL STATUS: Alert and oriented x3. IMPRESSION: 1. Hepatic encephalopathy. 2. Noncompliant with medication. 3. Ascites from liver failure. 4. Liver failure secondary to fatty liver infiltration. 5. Portal vein thrombosis and on Coumadin. 6. History of idiopathic thrombocytopenic purpura. Platelets run between 75,000 and 100,000. 7. Diabetes mellitus type 2, insulin dependence. 8. Coronary artery disease. PLAN: We will increase the rifaximin to 550 mg twice a day. Also, lactulose will go up to 3 times a day and follow his mental status. INPATIENT CERTIFICATION: Admit to inpatient care. Based on my medical assessment, after consideration of patient's risk factors, age, comorbidities, and patient's presenting symptoms and acuity, I expect that this patient will remain in the hospital greater than or equal to 2 midnights and that the services needed warrant inpatient care because of his liver failure, hepatic encephalopathy, and mental status changes. Estimated length of stay is 3 days. The patient may reasonably be expected to be discharged or transferred to a hospital within 96 hours after admission to [facility]. I certify that my determination is in accordance with my understanding of Medicare requirements for reasonable and necessary inpatient services. JONATHAN
[2017-12-30] MEDS: WARFARIN 1 MG TABLET PO SCH (17:09)
[2017-12-31 06:36] LABS: INR 2.4; PROTHROMBIN TIME (PATIENT) 23.4 SECONDS (9.5-12.1)
[2017-12-31 06:52] LABS: CREATININE 1.6 mg/dL (0.7-1.2)
[2017-12-31] MEDS: PANTOPRAZOLE SODIUM 40 MG TABLET PO SCH (06:53)
[2017-12-31] MEDS: GLIMEPIRIDE 2 MG TABLET PO SCH ×2 (08:53→17:16)
[2017-12-31] MEDS: LEVEMIR FLEXTOUCH 100 UNIT/ML INSULIN PEN SQ SCH (09:51)
[2017-12-31] MEDS: RIFAXIMIN 550 MG TABLET PO SCH ×2 (09:55→21:29)
[2017-12-31] MEDS: SPIRONOLACTONE 25 MG TAB PO SCH (09:55)
[2017-12-31] MEDS: LACTULOSE 20 GM/30 ML UDC PO SCH ×3 (09:55→21:28)
[2017-12-31] MEDS: TAMSULOSIN HCL 0.4 MG CAP.ER.24H PO SCH (09:55)
[2017-12-31] MEDS: TORSEMIDE 20 MG TABLET PO SCH ×2 (09:55→16:08)
[2017-12-31] MEDS: CHOLESTYRAMINE/ASPARTANE PKT PO SCH (11:25)
[2017-12-31] MEDS: NOVOLOG FLEXPEN (INSULIN ASPART) 100 UNITS/ML SQ SCH ×3 (12:21→21:33)
[2017-12-31] MEDS: WARFARIN 1 MG TABLET PO SCH (16:07)
[2018-01-01 06:43] LABS: INR 2.6; PROTHROMBIN TIME (PATIENT) 25.9 SECONDS (9.5-12.1)
[2018-01-01] MEDS: PANTOPRAZOLE SODIUM 40 MG TABLET PO SCH (06:53)
--- NOTE | 2018-01-01 07:22 | Discharge Note ---
VTE H&P Assessment - Risk for VTE Risk for VTE: Yes Risk Level: Low Risk Assessment Date: 12/30/17 Risk Assessment Time: 09:00 VTE Orders Placed or Will Be Placed: Yes Discharge Medications - Discharge Medications Prescriptions: Insulin Aspart [Novolog Flexpen] 1 unit SQ TIDINS #1 ml Home Medications: Ambulatory Orders Spironolactone [Aldactone] 100 mg PO DAILY 04/15/17 [Last Taken 12/29/17] Pantoprazole Sodium 40 mg PO DAILY 06/09/17 [Last Taken 12/29/17] Lactulose 60 ml PO TID 08/07/17 [Last Taken 12/29/17] Torsemide [Demadex] 20 mg PO BID 08/07/17 [Last Taken 12/29/17] Warfarin Sodium [Coumadin] 4 mg PO QPM 08/07/17 [Last Taken 12/29/17] Tamsulosin HCl [Flomax] 0.4 mg PO DAILY #30 cap.er.24h 08/11/17 [Last Taken 11/08] Glimepiride [Amaryl] 4 mg PO BID 12/30/17 [Last Taken 12/29/17] Ursodiol [Actigall] 300 mg PO BID 12/30/17 [Last Taken 12/29/17] Cholestyramine/Aspartame [Prevalite] 1 pkt PO DAILY pkt 01/01/18 [Last Taken Unknown] Glimepiride [Amaryl] 4 mg PO BIDINS tablet 01/01/18 [Last Taken Unknown] Insulin Aspart [Novolog Flexpen] 1 unit SQ TIDINS #1 ml 01/01/18 [Last Taken Unknown] Insulin Detemir [Levemir Flextouch] 70 unit SQ DAILY syringe 01/01/18 [Last Taken Unknown] Rifaximin [Xifaxan] 550 mg PO BID tablet 01/01/18 [Last Taken Unknown] Spironolactone [Aldactone] 100 mg PO DAILY tablet 01/01/18 [Last Taken Unknown] Torsemide 20 mg PO BIDDIUR tablet 01/01/18 [Last Taken Unknown] Discharge Note - Date Date of Discharge Note: 01/01/18 Disposition: Home, Self-Care Condition: (2) Stable Additional Instructions: follow up with Dr. Croft on friday Increase protein in diet low salt diet Forms: Patient Portal Access Activity at Discharge: Increase Activity as Tolerated Diet at Discharge: Low Salt Diet
[2018-01-01] MEDS: GLIMEPIRIDE 2 MG TABLET PO SCH (08:25)
[2018-01-01] MEDS: NOVOLOG FLEXPEN (INSULIN ASPART) 100 UNITS/ML SQ SCH (08:25)
[2018-01-01] MEDS: SPIRONOLACTONE 25 MG TAB PO SCH (09:31)
[2018-01-01] MEDS: RIFAXIMIN 550 MG TABLET PO SCH (09:31)
[2018-01-01] MEDS: TAMSULOSIN HCL 0.4 MG CAP.ER.24H PO SCH (09:31)
[2018-01-01] MEDS: CHOLESTYRAMINE/ASPARTANE PKT PO SCH (09:31)
[2018-01-01] MEDS: TORSEMIDE 20 MG TABLET PO SCH (09:31)
[2018-01-01] MEDS: LACTULOSE 20 GM/30 ML UDC PO SCH (09:32)
[2018-01-01] MEDS ORDERED: LEVEMIR FLEXTOUCH 100 UNIT/ML INSULIN PEN SQ SCH (10:00)
--- NOTE | 2018-01-02 09:40 | Discharge Summary ---
DATE OF DISCHARGE: 01/01/2018 DATE OF ADMISSION: 12/30/2017 DISCHARGE DIAGNOSES: 1. Hepatic encephalopathy, resolving, 2. Cirrhosis with ascites. His weight is 246 pounds. 3. Fatty liver disease. 4. Portal vein thrombosis, on Coumadin. 5. Idiopathic thrombocytopenic purpura. Platelets are running 75,000. 6. Diabetes mellitus type 2. 7. Noncompliant with medications. Educated the of the importance of taking the medications. 8. Coronary artery disease, stable. ATTENDING PHYSICIAN: Jed Croft DO REASON FOR HOSPITALIZATION: Confusion, nausea, vomiting. He has a history of liver failure and cirrhosis of the liver with ascites and fatty liver disease. HISTORY OF PRESENT ILLNESS: This patient is a 77-year-old male who presented to the emergency department with nausea, dizziness, and confusion which started last night. The stated he woke up and said he had to go to the hospital. He was evaluated in the emergency department by Dr. Trevino with a diagnosis of hepatic encephalopathy, noncompliant with his medication. stopped his rifaximin, went from 2 times a day to 1 time a day because of cost about 3 weeks ago. He was only taking his lactulose once a day because he was having loose stool. The patient has a history of liver failure. He has been evaluated at [facility] for possible transplant, was deemed not a transplant case because of his comorbid condition. 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 SIGNIFICANT FINDINGS: His ammonia was 273. Upon admission, his white count was 4900, hemoglobin 11.8, platelet count 75,000. Potassium 5.0, BUN 22, creatinine 1.5, sugar running 236, 255, 281. His ammonia dropped down to 63 on 12/31/2017. His mental status changes improved gradually for the next [address] Head [address] was performed on the patient in the emergency department. Generalized atrophy with chronic-appearing deep white matter changes. No definitive acute intracranial hemorrhage or focal mass effects identified. Innumerous small punctate calcifications in the scalp. THERAPY PROVIDED: The patient had his lactulose bumped up to 3 times a day. The rifaximin was increased to twice a day 500 mg twice a day. Cautious fluid administration. Sugars were monitored 4 times a day, and neuro checks were performed. Patient gradually improved. On the day of discharge, he was doing better but still weak and hard to get around but able to do it with a standby assistance. HOSPITAL COURSE: The patient gradually improved. CONDITION ON DISCHARGE: Improved. DISCHARGE INSTRUCTIONS: Follow up with Dr. Croft on 01/05/2018, in the office. Weigh daily, write it down, and bring the weights into the office. Continue with the lactulose 3 times a day and the rifaximin 550 mg b.i.d. Also continue the cholestyramine (Questran) 4 g daily, which is 1 package a day. He is also going to be given a prescription for NovoLog R for coverage before meals only, 1 unit for every 20 over 200 mg/dL. DISCHARGE MEDICATION: 1. Actigall 300 mg b.i.d. 2. Coumadin 4 mg daily. His PT/INR was 2.3. 3. Demadex 20 mg b.i.d. 4. Flomax 0.4 mg daily. 5. Aldactone 100 mg daily. 6. Protonix 40 mg daily. 7. Lactulose 60 mL 3 times a day to have at least 2-3 loose stools a day. 8. Lantus insulin will be increased to 70 units a day. 9. Amaryl 4 mg b.i.d. before 2 meals; breakfast and dinner. 10. Xifaxan (rifaximin) 550 mg b.i.d. 11. Cholestyramine (Questran) 4 g daily, which is 1 package, in 3 oz of water once a day. ACTIVITY: As tolerated. DIET: Low-salt diet. He can eat protein as he likes to. Discussion of the protein in his diet. The had some information that seemed incorrect to me; that he was supposed to be on a low-protein diet. I feel he should have protein to prevent muscle wasting. Consulted with GI doctor here in [place], which he agreed with me on that decision. I put a page in for his own laborer powerhouse at [facility] in [place] and I have not heard back from her. Her name is Dior Pacheco out of [place], [place]. Her phone number is [phone] or [phone]. [facility]
== END 2018-01-01 10:45 | disposition home or self-care (01) | DRG 441 ==
LOC: ER 00:47 → MEDSURG 02:28
PROVIDERS: ADMIT Emergency Medicine; ATTEND Emergency Medicine
DX: K72.90 Hepatic failure, unspecified without coma (principal); I81 Portal vein thrombosis; E11.9 Type 2 diabetes mellitus without complications; Z79.4 Long term (current) use of insulin; R19.7 Diarrhea, unspecified; R42 Dizziness and giddiness; I48.91 Unspecified atrial fibrillation; Z79.01 Long term (current) use of anticoagulants; E78.00 Pure hypercholesterolemia, unspecified; M19.90 Unspecified osteoarthritis, unspecified site; Z91.14 Patient's other noncompliance with medication regimen; Z85.820 Personal history of malignant melanoma of skin; Z95.811 Presence of heart assist device; Z87.891 Personal history of nicotine dependence
CPT/HCPCS: 36416; 70450; 80048; 80053; 81003; 82140; 82948; 83690; 85027; 85610; 93005; 93010; 96374; 99285; J2405

== ENCOUNTER 2018-01-29 09:41 | Inpatient (IN) | payer MEDICARE ==
--- NOTE | 2018-01-29 09:54 | Emergency Department Record ---
History of Present Illness - General Chief complaint: Weakness Stated complaint: DIZZY/WEAK/CONFUSSED Time Seen by Provider: 01/29/18 09:49 Source: Patient Mode of Arrival: Ambulatory Limitations: No limitations - History of Present Illness Initial comments: The patient is here due to being weak and mildly confused with trouble getting up and walking for one day. He has a hx of liver dz and thinks his ammonia is elevated. There has been no hx of nausea, vomiting, fever, chills, trauma, head injury, or weight gain. The patient does get frequent paracentesis performed and last had 7 liters removed at [facility] 3 weeks ago. Per the patient and his abdominal girth was not worse than normal. MD Complaint: Generalized weakness Onset/Timin -: Days(s) Severity: Mild Severity scale (1-10): 1 - Fletcher Coma Scale Eye Response: (4) Open spontaneously Motor Response: (6) Obeys commands Verbal Response: (4) Confused conversation Jeannine Total: 14 - Related Data Previous Rx's Medication Instructions Recorded Tamsulosin HCl [Flomax] 0.4 mg PO DAILY #30 cap.er.24h 08/11/17 Insulin Aspart [Novolog Flexpen] 1 unit SQ TIDINS #1 ml 01/01/18 Insulin Detemir [Levemir Flextouch] 70 unit SQ DAILY syringe 01/01/18 Rifaximin [Xifaxan] 550 mg PO BID tablet 01/01/18 Allergies Allergy/AdvReac Type Severity Reaction Status Date / Time Penicillins Allergy RASH Verified 01/29/18 09:50 Travel Screening - Travel/Exposure Within Last 30 Days Have you traveled within the last 30 days?: No - Travel/Exposure Within Last Year Have you traveled outside the [place] in the last year?: No - Additonal Travel Details Have you been exposed to anyone with a communicable illness?: No - Travel Symptoms Symptom Screening: None Review of Systems Constitutional: Denies: Chills, Fever Eyes: Denies: Eye discharge ENT: Denies: Congestion Respiratory: Denies: Cough, Dyspnea Cardiovascular: Denies: Arrhythmia Endocrine: Reports: Fatigue Gastrointestinal: Denies: Abdominal pain Genitourinary: Denies: Dysuria Musculoskeletal: Denies: Arthralgia Skin: Denies: Bruising Past Medical History - SOCIAL HISTORY Smoking Status: Former smoker Alcohol Use: None Drug Use: None - RESPIRATORY Hx Respiratory Disorders: No - CARDIOVASCULAR Hx Cardio Disorders: Yes Hx Abnormal EKG: Yes Hx Cardiac Cath: Yes Hx Chest Pain: No Hx CHF: Yes Hx Deep Vein Thrombosis: Yes Hx Edema: Yes Hx Heart Attack: No Hx Hypertension: Yes Hx Hypotension: Yes Hx Irregular Heartbeat: Yes (A-fib) Hx Palpitations: No Hx Pacemaker/Defib: No Hx Vascular Disease: No Comment:: HIGH CHOLESTEROL - NEURO Hx Neuro Disorders: No Hx Brain Tumor: No Hx CVA: No Hx Dementia: No Hx Dizziness: No Hx Headaches: No Hx Neuropathy: No Hx Parkinson's Disease: No Hx Seizures: No Hx Speech Problem: No Hx TIA: No - GI Hx GI Disorders: Yes Hx Abdominal Pain: Yes Hx Celiac Disease: No Hx Crohn's Disease: No Hx Diverticulitis: Yes Hx GI Bleed: No Hx Reflux: No Hx Hepatitis/Jaundice: No Hx Hiatal Hernia: No Hx Irritable Bowel: No Hx Liver Disease: Yes (Hepatic Encephalopathy; portal vein thrombosis) Hx Nausea/Vomiting: No Hx Obstructive Bowel: No Hx Pancreatitis: No Hx Rectal Bleeding: No Hx Ulcer: No Hx Wt Loss/Wt Gain: No Comment:: Portal Vein Thrombosis - Hx Genitourinary Disorders: No Hx Bladder Problem: No Hx Dialysis: No Hx Kidney Stones: No Hx Prostate Problems: No Hx Renal Disease: No Hx UTI: Yes - ENDOCRINE Hx Endocrine Disorders: Yes Hx Diabetes: Yes Hx Thyroid Disease: No - MUSCULOSKELETAL Hx Musculoskeletal Disorders: No Hx Arthritis: Yes Hx Back Injury: No Hx Fibromyalgia: No Hx Gout: No Hx Musculoskeletal Disease: No Hx Osteoporosis: No - PSYCH Hx Psych Problems: No Hx Anxiety: No Hx Behavior Problems: No Hx Depression: No Hx Emotional Abuse: No Hx Sexual Abuse: No Hx Suicide Attempt: No - HEMATOLOGY/ONCOLOGY Hx Hematology/Oncology Disorders: Yes Hx Anemia: No Hx Blood Disorders: Yes (low platelets; ITP) Hx Bruising: No Hx Cancer: Yes (skin) Hx Chemotherapy: No Hx Radiation Therapy: No Hx Clotting Problems: Yes Hx Sickle Cell Disease: No Hx Unexplained Bleeding: No Hx Blood Transfusions: No Hx Blood Transfusion Reaction: No Comment:: MELANOMA Family Medical History Any Significant Family History?: No Hx Alcohol Use: Father Hx Cancer: Father Hx Diabetes: Mother, Brother/Sister, Grandparents Hx Heart Disease: Mother Hx HTN: Mother, Brother/Sister Hx Liver Disease: Brother/Sister Hx Stroke: Grandparents Physical Exam - General General Appearance: Alert, Cooperative, No acute distress - Head Head exam: Atraumatic, Normocephalic, Normal inspection - Eye Eye exam: Normal appearance, PERRL - ENT Throat exam: Normal inspection. negative: Tonsillar erythema, Tonsillar exudate - Neck Neck exam: Normal inspection, Full ROM. negative: Tenderness - Respiratory Respiratory exam: Normal lung sounds bilaterally. negative: Respiratory distress - Cardiovascular Cardiovascular Exam: Regular rate, Normal rhythm, Normal heart sounds - GI/Abdominal GI/Abdominal exam: Soft, Distended. negative: Tenderness - Extremities Extremities exam: Normal inspection, Full ROM, Normal capillary refill. negative: Tenderness - Back Back exam: Reports: Normal inspection - Neurological Neurological exam: Alert, Normal gait. negative: Abnormal gait, Altered, Motor sensory deficit, Oriented X3 (The patient is oriented to name and place but not date. He is speaking in full sentences with no difficulty and is smiling and laughing at times.) Course Vital Signs 01/29/18 09:43 Temperature 97.7 F Pulse Rate 60 Respiratory 20 Rate Blood Pressure 122/74 Pulse Ox 99 - Reevaluation(s) Reevaluation #1: The patient is resting comfortably and denies any pain or nausea. I did explain that I felt the problem is that the patient's ammonia level is moderately elevated along with a significant UTI and that he will need to be admitted here. I then did speak to Dr. Croft and he did agree to the admission. 01/29/18 11:14 Medical Decision Making - Data Complexity MDM Data: Labs Ordered and/or Reviewed - Lab Data Result diagrams: 01/29/18 09:50 01/29/18 09:50 Disposition Disposition: Admit Clinical Impression: Hepatic encephalopathy UTI (urinary tract infection) Qualifiers: Urinary tract infection type: acute cystitis Hematuria presence: without hematuria Qualified Code(s): N30.00 - Acute cystitis without hematuria Disposition: Still a Patient at [facility] Decision to Admit: Admit from ER Decision to Admit Date: 01/29/18 Decision to Admit Time: 11:16 Accepting Physician: Guerda Time Discussed w/Accepting Physician: 11:00 Condition: (2) Stable Time of Disposition: 11:17 Quality - Quality Measures Quality Measures: N/A - Blood Pressure Screening View Details: Yes Does Patient Have Any of the Following: No Blood Pressure Classification: Pre-Hypertensive BP Reading Systolic Measurement: 122 Diastolic Measurement: 74 Screening for High Blood Pressure: < Pre-Hypertensive BP, F/U Documented > [ [id number]] Pre-Hypertensive Follow-up Interventions: Referral to alternative/primary care provider.
[2018-01-29 10:03] LABS: BASO % 0.5 % (0-6); GRAN % 75.7 % (47-80); HEMATOCRIT 34.2 % (42.0-52.0); HEMOGLOBIN 11.6 gm/dl (14.0-18.0); LYMPH % 14.7 % (16-45); MEAN CELL VOLUME 96.3 fl (81-97); MEAN CORPUSCULAR HGB CONC 33.9 g/dl (32-36); MEAN PLATELET VOLUME 9.8 fl (7.4-10.4); MONO % 8.1 % (0-9); RED BLOOD COUNT 3.55 M/uL (4.40-5.70); RED CELL DISTRIBUTION WIDTH 16.3 % (11.5-14.5); WHITE BLOOD COUNT W/O DIFF 3.8 K/uL (4.2-12.2)
[2018-01-29 10:10] LABS: MEAN CORPUSCULAR HEMOGLOBIN 32.6 pg (27-33)
[2018-01-29 10:11] LABS: PLATELET COUNT 76 K/uL (130-400)
[2018-01-29 10:16] LABS: BILIRUBIN,TOTAL 2.2 mg/dL (0.2-1.0); CREATININE 1.9 mg/dL (0.7-1.2); TOTAL PROTEIN 6.1 g/dL (6.6-8.7)
[2018-01-29 10:18] LABS: INR 2.3; PARTIAL THROMBOPLASTIN TIME 34.3 SECONDS (24.5-39.1); PROTHROMBIN TIME (PATIENT) 22.2 SECONDS (9.5-12.1)
[2018-01-29 10:21] LABS: ALBUMIN 2.5 g/dL (4.0-5.0); BILIRUBIN,DIRECT 0.8 mg/dL (0-0.3)
[2018-01-29 10:41] LABS: URINE APPEARANCE SL CLOUDY; URINE BILIRUBIN NEGATIVE (NEGATIVE); URINE BLOOD NEGATIVE (NEGATIVE); URINE COLOR YELLOW; URINE GLUCOSE (UA) NEGATIVE (NEGATIVE); URINE KETONE NEGATIVE (NEGATIVE); URINE LEUKOCYTE ESTERASE MODERATE (NEGATIVE); URINE NITRITE NEGATIVE (NEGATIVE); URINE PROTEIN NEGATIVE (NEGATIVE)
[2018-01-29 10:56] LABS: URINE BACTERIA 4+; URINE EPITHELIAL CELLS 0 - 2 (FEW); URINE RBC 0 - 2 (NONE SEEN)
[2018-01-29] MEDS ORDERED: CEFTRIAXONE SODIUM 1 GM in 0.9 % SODIUM CHLORIDE 100ML 100 ML IVPB ONE (11:06)
[2018-01-29] MEDS ORDERED: LACTULOSE 20 GM/30 ML UDC PO ONE (11:09)
[2018-01-29] MEDS: LACTULOSE 20 GM/30 ML UDC PO SCH ×3 (14:35→21:25)
[2018-01-29] MEDS: NOVOLOG FLEXPEN (INSULIN ASPART) 100 UNITS/ML SQ SCH ×2 (15:22→18:44)
[2018-01-29] MEDS ORDERED: TORSEMIDE 20 MG TABLET PO SCH (16:00)
[2018-01-29] MEDS ORDERED: GLIMEPIRIDE 2 MG TABLET PO SCH (16:30)
[2018-01-29] MEDS ORDERED: NOVOLOG FLEXPEN (INSULIN ASPART) 100 UNITS/ML SQ ONE ×2 (17:52→17:53)
[2018-01-29] MEDS: WARFARIN 1 MG TABLET PO SCH (21:25)
[2018-01-29] MEDS: RIFAXIMIN 550 MG TABLET PO SCH (21:25)
[2018-01-29] MEDS: DIPHENHYDRAMINE HCL 25 MG CAPSULE PO PRN (21:25)
[2018-01-29] MEDS: CEFTRIAXONE 1GM/50ML BAG 1 GM/50 ML BAG IVPB SCH (21:29)
[2018-01-29] MEDS: URSODIOL 300 MG PO SCH (21:29)
[2018-01-30] MEDS: PANTOPRAZOLE SODIUM 40 MG TABLET PO SCH (06:29)
[2018-01-30 06:51] LABS: INR 2.4; PROTHROMBIN TIME (PATIENT) 23.8 SECONDS (9.5-12.1)
[2018-01-30 06:53] LABS: CREATININE 1.8 mg/dL (0.7-1.2)
[2018-01-30] MEDS ORDERED: TORSEMIDE 20 MG TABLET PO SCH (10:00)
[2018-01-30] MEDS: CEFTRIAXONE 1GM/50ML BAG 1 GM/50 ML BAG IVPB SCH ×2 (10:34→21:16)
[2018-01-30] MEDS: SPIRONOLACTONE 25 MG TAB PO SCH (10:45)
[2018-01-30] MEDS: TAMSULOSIN HCL 0.4 MG CAP.ER.24H PO SCH (10:59)
--- NOTE | 2018-01-30 11:00 | History and Physical Report ---
DATE: 01/29/18 CHIEF COMPLAINT: Confusion, weakness, unable to ambulate with a history of liver failure, cirrhosis with ascites. HISTORY OF PRESENT ILLNESS: This 77-year-old male presented to the emergency department with weakness, confusion, and barely ambulating. The patient states that his abdomen is not more bloated; however, his weight is up since a month ago about 20 pounds. His ammonia level was checked in the emergency department and is 134. His last paracentesis was 3 weeks ago and 7 liters was removed at [facility]. His blood sugar this morning was 76. He was evaluated in the emergency department by Dr. Friedman with a diagnosis of hepatic encephalopathy, urinary tract infection. He was started on IV Rocephin, lactulose 30 g 4 times a day and continuing his rifaximin 550 mg 1 tablet b.i.d. PAST MEDICAL HISTORY: Diabetes mellitus with insulin use, idiopathic thrombocytopenia, platelet count runs between 75,000 to 80,000, fatty liver disease, cirrhosis with ascites, and gets periodic paracentesis done every 2-3 weeks for his ascites, hypertension, hypercholesterolemia, coronary artery disease, and he is an ex-smoker. He is not a transplant case. He does not meet criteria. He was evaluated at [facility] for a transplant. He also has hepatic vein thrombosis and is on Coumadin for that. PAST SURGICAL HISTORY: Appendectomy, tonsillectomy, carpal tunnel, and colonoscopy. MEDICATIONS: 1. Coumadin 4 mg a day. 2. Actigall 300 mg b.i.d. 3. Demadex 20 mg b.i.d. 4. Flomax 0.4 mg daily. 5. Aldactone 100 mg daily. 6. Rifaximin 550 mg b.i.d. 7. Protonix 40 mg daily. 8. Lactulose 45 mL 4 times a day, which is 30 g. 9. Levemir 70 units daily. 10. NovoLog t.i.d. with meals. He is using 4 units for each meal and then a scale of 1 unit for every 20 over 200. 11. Zofran 4 mg q.6 h. p.r.n. ALLERGIES: PENICILLIN. FAMILY/PSYCHOSOCIAL HISTORY: The father had cancer. No significant history. He is a former smoker. No drug or alcohol use in the past. He has never been a heavy drinker. He has fatty liver disease. REVIEW OF SYSTEMS: HEENT: No sore throat, congestion, cough, or cold. No visual problems. He went to bed and was doing fine last night. Cardiovascular: He denies chest pain. He has had episodes of AFib in the past but he is in normal sinus rhythm now. Respiratory: He was short of breath slightly when he came in but mostly confusion. No chest pain. Gastrointestinal: He has loose stools but he is supposed to have 3-4 loose stools a day. Genitourinary: No dysuria, hematuria, frequency, or burning on urination. Musculoskeletal: Moving all 4 extremities. Does have osteoarthritis. Neurological: No CVA, paralysis, or paresthesias. Endocrine: He has diabetes mellitus type 2 and on insulin. No hypothyroidism. Integument: No rash, ulcers, change in moles, or yellow skin. His legs are not swollen today. He looks slightly dry from his legs but not his belly. PHYSICAL EXAMINATION: VITALS: Height 6 feet 2 inches, weight 264 pounds. Temperature 97.7, pulse 62, blood pressure 98/58, respiratory rate 16, pulse ox 98% on room air. HEENT: Pupils are equal, round, and reactive to light and accommodation. Extraocular muscles are intact. Throat is clear. Nose is clear. Tympanic membranes are paredes. NECK: Supple. No jugular venous distention. No hepatojugular reflux. No carotid bruits. CARDIOVASCULAR: Regular rate and rhythm. RESPIRATORY: Breath sounds equal bilaterally. ABDOMEN: Distended abdomen. Soft. No pain. No rebound or rigidity. No signs of peritonitis. EXTREMITIES: No edema bilaterally. BREASTS: Normal male breasts. RECTAL: Exam deferred. GENITALIA: Deferred. NEUROLOGIC: Cranial nerves II-XII intact. No gross defects. Sensation normal, strength normal. Deep tendon reflexes equal bilaterally with Babinski negative. MENTAL STATUS: Alert and oriented x3. His confusion has cleared quite a bit since he was in the emergency department according to the . IMPRESSION: 1. Hepatic encephalopathy. 2. Urinary tract infection. 3. Ascites with liver failure. 4. Liver failure secondary to fatty liver infiltration. 5. Portal vein thrombosis and on Coumadin. 6. History of idiopathic thrombocytopenic purpura. Platelets run between 75,000 to 100,000. 7. Diabetes mellitus type 2, insulin dependent. 8. Coronary artery disease. PLAN: IV Rocephin 1 g q.12 h. Lactulose. Continue all his home medications. Lactulose is 4 times a day 30 g. INPATIENT CERTIFICATION: Admit to inpatient care. Based on my medical assessment, after consideration of patient's risk factors, age, comorbidities, and patient's presenting symptoms and acuity, I expect that this patient will remain in the hospital greater than or equal to 2 midnights and that the services needed warrant inpatient care because of liver failure and hepatic encephalopathy, urinary tract infection, mental status change. Estimated length of stay is 3 days. The patient may reasonably be expected to be discharged or transferred to a hospital within 96 hours after admission to [facility]. I certify that my determination is in accordance with my understanding of Medicare requirements for reasonable and necessary inpatient services. JONATHAN
[2018-01-30] MEDS: LEVEMIR FLEXTOUCH 100 UNIT/ML INSULIN PEN SQ SCH (11:01)
[2018-01-30] MEDS: LACTULOSE 20 GM/30 ML UDC PO SCH ×4 (11:02→21:15)
[2018-01-30] MEDS: RIFAXIMIN 550 MG TABLET PO SCH ×2 (11:12→21:16)
[2018-01-30] MEDS: URSODIOL 300 MG PO SCH ×2 (11:15→21:17)
--- NOTE | 2018-01-30 14:44 | Rehab Evaluation ---
Patient Information - Patient Information Diagnosis: deconditioning d/t UTI and acute hepatic encephalopathy Ordered Treatment: OT Evaluate and Treat Status: Initial Evaluation Surgery: No Past Medical/Surgical Hx: PAST MEDICAL/SURGICAL HISTORY Past Surgical History APPENDECTOMY TONSILLECTOMY CARPAL TUNNEL COLONOSCOPY ABDOMINAL PARACENTESIS, LAST 2 WEEKS AGO, REMOVED 7 LITERS PMH - Respiratory Hx Respiratory Disorders No PMH - Cardiovascular Hx Cardiovascular Disorders Yes Hx Abnormal EKG Yes Hx Cardiac Catheterization Yes Hx Chest Pain No Hx Congestive Heart Failure Yes Hx Deep Vein Thrombosis Yes Hx Edema Yes Hx Heart Attack No Hx Hypertension Yes Hx Hypotension Yes Hx Irregular Heartbeat Yes: A-fib Hx Palpitations No Hx Pacemaker/Defibrillator No Hx Vascular Disease No Hx Transient Ischemic Attacks No (TIA) Comment: HIGH CHOLESTEROL PMH - Neuro Hx Neurological Disorders No Hx Brain Tumor No Hx Cerebrovascular Accident No Hx Dementia No Hx Dizziness No Hx Headaches No Hx Neuropathy No Hx Parkinson's Disease No Hx Seizures No Hx Speech Problem No Hx Syncope Yes Hx Transient Ischemic Attacks No (TIA) PMH - GI Hx Gastrointestinal Disorders Yes Hx Abdominal Pain Yes Hx Celiac Disease No Hx Crohn's Disease No Hx Diverticulitis Yes Hx Gastrointestinal Bleed No Hx Gastroesophageal Reflux No Hx Hepatitis/Jaundice No Hx Hiatal Hernia No Hx Irritable Bowel No Hx Liver Disease Yes: Hepatic Encephalopathy; portal vein thrombosis Hx Nausea/Vomiting No Hx Obstructive Bowel No Hx Pancreatitis No Hx Rectal Bleeding No Hx Ulcer No Hx Weight Loss/Weight Gain No Comment: Portal Vein Thrombosis PMH - Hx Genitourinary Disorders No Hx Bladder Problem No Hx Dialysis No Hx Kidney Stones No Hx Prostate Problems No Hx Renal Disease No Hx Urinary Tract Infection Yes PMH - Endocrine Hx Endocrine Disorders Yes Hx Diabetes Yes Hx Thyroid Disease No Hx of IDDM Yes PMH - Musculoskeletal Hx Musculoskeletal Disorders No Hx Arthritis Yes Hx Back Injury No Hx Fibromyalgia No Hx Gout No Hx Musculoskeletal Disease No Hx Osteoporosis No PMH - Psych Hx Psychiatric Problems No Hx Anxiety No Hx Behavior Problems No Hx Depression No Hx Emotional Abuse No Hx Sexual Abuse No Hx Suicide Attempt No PMH - Hematology/Oncology Hx Hematology/Oncology Yes Disorders Hx Anemia No Hx Blood Disorders Yes: low platelets; ITP Hx Bruising No Hx Cancer Yes: skin Hx Chemotherapy No Hx Radiation Therapy No Hx Clotting Problems Yes Hx Sickle Cell Disease No Hx Unexplained Bleeding No Hx Blood Transfusion Reaction No Comment: MELANOMA Premorbid Status: Detail (Per patient case managerglobal category manager, pt. sees a specialist in [place] who estimated a few months to live. Pt. and spouse would like home care/ visiting nurse and does not want hospice at this time. Prior to this hospitalization, pt. receives assistance from his with household mgmt, meal prep, transportation, and donning compression stockings. Spouse supervises showering, but pt. is able to wash and complete self-care with modified Ind.) Social History: Detail (Lives in bilevel house with . Enters home via walk- in finished basement where he spends majority of his time, and bedroom and bathroom are located. House has 6 steps, landing, and 6 more steps. Kitchen is upstairs, so spouse does meal prep. Pt. reported he built an elevator in the home. Bathroom has multiple grab bars throughout, including in shower and near toilet. Walk-in shower with tub bench available if needed, and elevated toilet seat. Has 3-in-1 commode available too if needed. Pt. has a 2WW, which has been using majority of the time recently, but has a standard cane which he used previously. Spouse stated he has two walkers, one upstairs and one downstairs. Also has a soft sock aid, but doesn't like to use it (doesn't work with compression stockings).) Precautions: Pearblossom, Fall - Time With Patient Total Time Spent With Patient (Min): 30 Treatment Procedures: Detail (JESÚS [place]. Session was concluded with pt. supine in bed, present, and call light with bedside tray within reach.) Subjective Information - Subjective Information Per Patient (Pt stated feeling much better today, and spouse said he looked a lot more "purchasing agent". Pt. reported on day he was admitted, wasn't able to even roll over in bed let alone get up out of it.) Objective Data - Mental Status Patient Orientation: Oriented x3 (Pt. was oriented to date, name, and bday but stated he was 73 (vs. 77). Pt. and spouse report his brain gets "numb/fuzzy" sometimes; forgetfullness.) - Visual Perception Appears within normal limits for therapeutic activities - ROM Not within normal limits (Deon. shd flex, abd, ER, and IR WNL. Deon. wrists severly limited ext (about 20 to 30 degrees) and moderately limited flex (about 30 to 40 degrees); supination approx. 30 to 40 degrees; pronation WFL. Pt. is able to make closed fists bilaterally. Pt. reported hx of severe wrist fractures bilaterally many years ago. Due to poor wrist AROM, pt is unable to push off of flat hands with sit<>stand transitions, but makes fists and pushes off of those.) - Strength/Tone Not within normal limits (LUE slightly weaker than R in general. R shd flex and abd 4+/5. L shd flex 4/5, abd 4-/5. R biceps 4+/5. L biceps 4/5. R triceps 4/5. L triceps 3+/5. Bilateral childcare center administrator strength very weak, which may effect ability to childcare center administrator walker, open food packages or medicine bottles, etc.) - Coordination Appears within normal limits for therapeutic activities - Bed Mobility Independent (Modified Ind. with use of bed rail on R side. Pt. reported he uses walker beside bed when at home.) - Transfers Independent (SBA with VC's to increase safety with hand placement; modified independence (walker) sit<>stand bed to walker. Educ. provided in safe t/f techniques; pt verbalized understanding and returned demo.) - Balance Balance Sitting: Fair (No LOB, but pt. has significant posterior lean when lifting a LE, and used unilateral UE support majority of time.) Balance Standing: Fair - Sensation Intact (Pt. denies numbess on BUE) - ADL's/IADL's Detail (NT at this time; pt. fatigued quickly after short walk.) Therapy Assessment - Therapy Assessment Detail (Pt. would benefit from skilled OT services in his home (familiar) environment to maximize function and minimize BUE weakness, with focus on education in energy conservation techniques and improving endurance/functional mobility to allow pt. to complete his typical ADL self-care routine. Spouse or other family member should be present during education d/t pt's inconsistent cognitive functioning status. Per pt/spouse report, they have a good environmental set-up and AE needed to maximize function.) Prognosis - Prognosis Moderate Plan - Plan Occupational Therapy Plan: D/C from in-pt OT services.
--- NOTE | 2018-01-30 14:45 | Rehab Evaluation ---
Patient Information - Patient Information Diagnosis: UTI Ordered Treatment: PT Evaluate and Treat Status: Initial Evaluation History: Detail (The patient arrived to ED on 01/29/18 with complaints of increased weakness, confusion and difficulty ambulating. The patient was transferred to the inpatient floor.) Past Medical/Surgical Hx: PAST MEDICAL/SURGICAL HISTORY Past Surgical History APPENDECTOMY TONSILLECTOMY CARPAL TUNNEL COLONOSCOPY ABDOMINAL PARACENTESIS, LAST 2 WEEKS AGO, REMOVED 7 LITERS PMH - Respiratory Hx Respiratory Disorders No PMH - Cardiovascular Hx Cardiovascular Disorders Yes Hx Abnormal EKG Yes Hx Cardiac Catheterization Yes Hx Chest Pain No Hx Congestive Heart Failure Yes Hx Deep Vein Thrombosis Yes Hx Edema Yes Hx Heart Attack No Hx Hypertension Yes Hx Hypotension Yes Hx Irregular Heartbeat Yes: A-fib Hx Palpitations No Hx Pacemaker/Defibrillator No Hx Vascular Disease No Hx Transient Ischemic Attacks No (TIA) Comment: HIGH CHOLESTEROL PMH - Neuro Hx Neurological Disorders No Hx Brain Tumor No Hx Cerebrovascular Accident No Hx Dementia No Hx Dizziness No Hx Headaches No Hx Neuropathy No Hx Parkinson's Disease No Hx Seizures No Hx Speech Problem No Hx Syncope Yes Hx Transient Ischemic Attacks No (TIA) PMH - GI Hx Gastrointestinal Disorders Yes Hx Abdominal Pain Yes Hx Celiac Disease No Hx Crohn's Disease No Hx Diverticulitis Yes Hx Gastrointestinal Bleed No Hx Gastroesophageal Reflux No Hx Hepatitis/Jaundice No Hx Hiatal Hernia No Hx Irritable Bowel No Hx Liver Disease Yes: Hepatic Encephalopathy; portal vein thrombosis Hx Nausea/Vomiting No Hx Obstructive Bowel No Hx Pancreatitis No Hx Rectal Bleeding No Hx Ulcer No Hx Weight Loss/Weight Gain No Comment: Portal Vein Thrombosis PMH - Hx Genitourinary Disorders No Hx Bladder Problem No Hx Dialysis No Hx Kidney Stones No Hx Prostate Problems No Hx Renal Disease No Hx Urinary Tract Infection Yes PMH - Endocrine Hx Endocrine Disorders Yes Hx Diabetes Yes Hx Thyroid Disease No Hx of IDDM Yes PMH - Musculoskeletal Hx Musculoskeletal Disorders No Hx Arthritis Yes Hx Back Injury No Hx Fibromyalgia No Hx Gout No Hx Musculoskeletal Disease No Hx Osteoporosis No PMH - Psych Hx Psychiatric Problems No Hx Anxiety No Hx Behavior Problems No Hx Depression No Hx Emotional Abuse No Hx Sexual Abuse No Hx Suicide Attempt No PMH - Hematology/Oncology Hx Hematology/Oncology Yes Disorders Hx Anemia No Hx Blood Disorders Yes: low platelets; ITP Hx Bruising No Hx Cancer Yes: skin Hx Chemotherapy No Hx Radiation Therapy No Hx Clotting Problems Yes Hx Sickle Cell Disease No Hx Unexplained Bleeding No Hx Blood Transfusion Reaction No Comment: MELANOMA Premorbid Status: Detail (The patient was ambulatory without device until the past couple of weeks when he has begun using front wheeled walker.) Social History: Detail (The patient lives in a bilevel home with spouse with bottom level walk in ( no steps at enterance. The home has 6 stairs, a landing and 6 stairs with one railing between levels. The house also has an elevator. The patient's bathroom is equipped with a walk in shower with a tub bench and grab bars, an elevated toilet with grab bars. The patient has a front wheeled walker with a standard cane and a commode.) Precautions: [place], Fall - Time With Patient Total Time Spent With Patient (Min): 30 Treatment Procedures: Detail (Initial Evaluation) Subjective Information - Subjective Information Per Patient (The patient had no complaints of pain. The patient felt he was much stronger then yesterday.) Objective Data - Mental Status Patient Orientation: Oriented x3 (The patient knew month, year, birthdate but not age ( he said 73).) - Visual Perception Appears within normal limits for therapeutic activities - ROM Within normal limits (The patietn's LE AROM was WNL.) - Strength/Tone Not within normal limits (The patient's bilateral LE strength was as follows: hip flexors 4-/5, hip adductors 4/5, hip abductors 4+/5, knee extensors 4+/5, knee flexors L 4-/5, R 4/5, ankle musculature 4+/5.) - Bed Mobility Independent (The patient was independent with supine to and from sit transfer.) - Transfers Independent (The patient was independent with sit to and from stand transfer with verbal cues to push up from the surface.) - Balance Balance Sitting: Good Balance Standing: Fair (The patient required support of walker for standing.) - Sensation Intact - Gait Detail (The patient ambulated front wheeled walker with supervision for safety a distance of 60 feet x 1 with supervision/CG of 1 for safety.) Therapy Assessment - Therapy Assessment Detail (The patient had decreased endurance for physical activity and LE weakness. The patient completed mobility with supervision for safety. Feel the patient would benefit from Home PT services to assess the patient's safety in home environment.) Problem List - Problem List Physical Therapy Problem List: Detail (1) LE weakness 2) Decreased ablility to complete prolonged physical activity 3) CG/supervision for safety with ambulation) Goals - Goals Physical Therapy Goals: 1) Increase LE strength 1/3 muscle grade to increase stability of gait. 2) The patient will ambulate independently household distances with appropriate assistance device. 3) The patient will tolerate 20 to 30 minutes of physical activity. Prognosis - Prognosis Good Plan - Plan Physical Therapy Plan: PT daily for LE strengthening exercises and gait training until discharged from [facility] . Recommend Home PT when discharged for assessment of the patient's mobility in home environment.
--- NOTE | 2018-01-30 15:07 | Physician Progress Note ---
Subjective - Date Date of Physician Progress Note: 01/30/18 - Subjective Subjective Comment: Summary: Mr. Kenny is a 77 y/o male with chronic liver failure secondary to fatty infiltration, portal vein thrombosis and type II diabetes who presented with confusion and dizziness. He has history of previous admission for elevated ammonia resulting in hepatic encephalopathy. The patient's most recent paracentesis was about two weeks ago where he reports having 7 liters of fluid removed. On examination this morning the patient is awake, alert and appears back tot his baseline mentation. His only other complaint this morning is some minor bruising of his bilateral shoulders which he attributes to his coumadin therapy. Dr. Burns covering Dr. Croft. Objective - Vital Signs Vital Signs: Vital Signs - Last 24 Hrs Temp Pulse Resp BP BP Pulse Ox 01/30/18 09:00 20 01/30/18 07:26 98.6 F 69 18 102/63 94 L 01/29/18 20:00 98.2 F 57 L 16 104/58 96 01/29/18 16:00 99.3 F 68 18 105/58 95 - General General Appearance: Alert, Cooperative, No acute distress Limitations: No limitations - Head Head exam: Atraumatic, Normocephalic, Normal inspection - Eye Eye exam: Normal appearance, PERRL - ENT Throat exam: Normal inspection. negative: Tonsillar erythema, Tonsillar exudate - Neck Neck exam: Normal inspection, Full ROM. negative: Tenderness - Respiratory Respiratory exam: Normal lung sounds bilaterally. negative: Respiratory distress - Cardiovascular Cardiovascular Exam: Regular rate, Normal rhythm, Normal heart sounds Peripheral Pulses: 2+: Radial (R), Radial (L), Dorsalis Pedis (R), Dorsalis Pedis (L) - GI/Abdominal GI/Abdominal exam: Soft, Normal bowel sounds, Distended. negative: Tenderness - Extremities Extremities exam: Normal inspection, Full ROM, Normal capillary refill. negative: Tenderness - Back Back exam: Reports: Normal inspection - Neurological Neurological exam: Alert, Normal gait. negative: Abnormal gait, Altered, Motor sensory deficit, Oriented X3 (The patient is oriented to name and place but not date. He is speaking in full sentences with no difficulty and is smiling and laughing at times.) - Psychiatric Psychiatric exam: Normal affect, Normal mood - Skin Skin exam: Abrasion (bilateral ) Assessment and Plan - Assessment and Plan (1) Hepatic encephalopathy Current Visit: Yes Status: Acute Base Code: K72.90 - HEPATIC FAILURE, UNSPECIFIED WITHOUT COMA Comment: 01/30/18: - Resolved after Lactulose TID, and Rifaxamin. - Ammonia 134 --> 90 - Check ammonia with morning labs. (2) Ascites of liver Current Visit: Yes Status: Acute Base Code: R18.8 - OTHER ASCITES Comment : 01/30/18: - on Aldactone 100mg daily, Torsemide 20mg BID, and Ursodiol. - paracentsis as per Hepatology and [facility]. (3) UTI (urinary tract infection) Current Visit: Yes Status: Acute Qualifiers: Urinary tract infection type: acute cystitis Hematuria presence: without hematuria Qualified Code(s): N30.00 - Acute cystitis without hematuria Base Code: N39.0 - URINARY TRACT INFECTION, SITE NOT SPECIFIED Comment: 01/30/18: - UA: moderate leukocytes, 10-15 wbcs - Day #2 of Rocephin 1gm Q12H. (4) IDDM (insulin dependent diabetes mellitus) Current Visit: No Status: Acute Base Code: E11.9 - TYPE 2 DIABETES MELLITUS WITHOUT COMPLICATIONS; Z79.4 - SKILLED NURSING (CURRENT) USE OF INSULIN Comment: 01/30/18: - accuchecks 182, 282 - on Levemir 70 units SQ daily. - ADA diet ordered (5) DVT prophylaxis Current Visit: Yes Status: Acute Base Code: [id number] - Comment: 01/30/18: - on therapeutic dosing of Coumadin due to portal vein thrombosis. - PT/INR: 23.4/2.4 (6) Full code status Current Visit: Yes Status: Acute Base Code: Z78.9 - OTHER SPECIFIED HEALTH STATUS Comment: 01/30/18: - pt is full code. - Disposition Disposition: The patient is stable and has returned to baseline mental function with lactulose and rifaxamin therapy. Dr. Croft will return tomorrow to follow the patient. Results - Labs Result Diagrams: 01/29/18 09:50 01/30/18 06:27 Labs Last 24 Hours: Laboratory Results - last 24 hr 01/29/18 01/29/18 01/30/18 15:22 17:41 06:27 PT INR Sodium 131 L Potassium 4.3 Chloride 98 Carbon Dioxide 21.0 L Anion Gap 12.0 BUN 25 H Creatinine 1.8 H Estimated GFR 39 POC Glucose 250 H 182 H Random Glucose 112 H Calcium 8.1 L Ammonia 01/30/18 01/30/18 01/30/18 06:27 06:27 11:30 PT 23.8 H INR 2.4 Sodium Potassium Chloride Carbon Dioxide Anion Gap BUN Creatinine Estimated GFR POC Glucose 272 H Random Glucose Calcium Ammonia 90 H DVT/PE Assessment - Risk for VTE Risk for VTE: No Risk Level: High Risk Assessment Date: 01/30/18 Risk Assessment Time: 21:56 VTE Orders Placed or Will Be Placed: Yes - Active Medicaitons Current Medications: Current Medications Diphenhydramine HCl (Benadryl Capsule) 25 mg PO QHS PRN PRN Reason: INSOMNIA Last Admin: 01/29/18 21:25 Dose: 25 mg CEFTRIAXONE 1GM/50ML BAG (Ceftriaxone 1 Gm-D5w Bag) 1 gm in 50 mls @ 100 mls/ hr IVPB Q12HR [facility] Last Infusion: 01/30/18 11:30 Dose: Infused Insulin Detemir (Levemir Flextouch) 70 unit SQ DAILY [facility] Last Admin: 01/30/18 11:01 Dose: 70 unit Lactulose (Lactulose) 30 gm PO QID [facility] Last Admin: 01/30/18 14:45 Dose: 30 gm Non-Formulary Medication (Ursodiol [Actigall]) 300 mg PO BID [facility] Last Admin: 01/30/18 11:15 Dose: Not Given Pantoprazole Sodium (Protonix) 40 mg PO DAILYAC [facility] Last Admin: 01/30/18 06:29 Dose: 40 mg Spironolactone (Aldactone) 100 mg PO DAILY [facility] Last Admin: 01/30/18 10:45 Dose: Not Given Tamsulosin HCl (Flomax) 0.4 mg PO DAILY [facility] Last Admin: 01/30/18 10:59 Dose: 0.4 mg Torsemide (Torsemide) 20 mg PO DAILY [facility] Last Admin: 01/30/18 11:05 Dose: 20 mg Warfarin Sodium (Coumadin) 4 mg PO QHS [facility] Last Admin: 01/29/18 21:25 Dose: 4 mg AMI Plan - Labs Result Diagrams: 01/29/18 09:50 01/30/18 06:27
[2018-01-30] MEDS ORDERED: ZINC OXIDE 28.35 GM TUBE TOP PRN (16:25)
[2018-01-30] MEDS: WARFARIN 1 MG TABLET PO SCH (21:15)
[2018-01-30] MEDS: DIPHENHYDRAMINE HCL 25 MG CAPSULE PO PRN (21:16)
[2018-01-31 06:20] LABS: HEMATOCRIT 32.5 % (42.0-52.0); HEMOGLOBIN 11.2 gm/dl (14.0-18.0); MEAN CELL VOLUME 95.6 fl (81-97); MEAN CORPUSCULAR HEMOGLOBIN 32.9 pg (27-33); MEAN CORPUSCULAR HGB CONC 34.5 g/dl (32-36); MEAN PLATELET VOLUME 9.8 fl (7.4-10.4); PLATELET COUNT 69 K/uL (130-400); RED CELL DISTRIBUTION WIDTH 16.1 % (11.5-14.5); WHITE BLOOD COUNT W/O DIFF 4.5 K/uL (4.2-12.2)
[2018-01-31 06:32] LABS: INR 2.7; PROTHROMBIN TIME (PATIENT) 26.5 SECONDS (9.5-12.1)
[2018-01-31 06:51] LABS: ALB/GLOB RATIO 0.7 (1.1-1.8); ALBUMIN 2.4 g/dL (4.0-5.0); BILIRUBIN,TOTAL 1.1 mg/dL (0.2-1.0); CREATININE 1.6 mg/dL (0.7-1.2); TOTAL PROTEIN 5.8 g/dL (6.6-8.7)
[2018-01-31 06:56] LABS: PLATELET ESTIMATE DECREASED (NORMAL)
[2018-01-31 06:57] LABS: ANISOCYTOSIS 1+
[2018-01-31] MEDS: PANTOPRAZOLE SODIUM 40 MG TABLET PO SCH (07:23)
[2018-01-31] MEDS ORDERED: NOVOLOG FLEXPEN (INSULIN ASPART) 100 UNITS/ML SQ ONE (07:44)
[2018-01-31] MEDS ORDERED: NOVOLOG FLEXPEN (INSULIN ASPART) 100 UNITS/ML SQ SCH (07:45)
[2018-01-31] MEDS: GLIMEPIRIDE 2 MG TABLET PO SCH ×2 (08:54→17:53)
[2018-01-31] MEDS: NOVOLOG FLEXPEN (INSULIN ASPART) 100 UNITS/ML SQ SCH ×7 (08:57→18:00)
[2018-01-31] MEDS: TAMSULOSIN HCL 0.4 MG CAP.ER.24H PO SCH (10:04)
[2018-01-31] MEDS: RIFAXIMIN 550 MG TABLET PO SCH ×2 (10:04→22:00)
[2018-01-31] MEDS: TORSEMIDE 20 MG TABLET PO SCH ×2 (10:04→22:00)
[2018-01-31] MEDS: CEFTRIAXONE 1GM/50ML BAG 1 GM/50 ML BAG IVPB SCH ×2 (10:05→22:02)
[2018-01-31] MEDS: LACTULOSE 20 GM/30 ML UDC PO SCH ×4 (10:06→21:55)
[2018-01-31] MEDS: LEVEMIR FLEXTOUCH 100 UNIT/ML INSULIN PEN SQ SCH (10:12)
[2018-01-31] MEDS: URSODIOL 300 MG PO SCH ×2 (11:11→22:01)
[2018-01-31] MEDS: SPIRONOLACTONE 25 MG TAB PO SCH (11:11)
[2018-01-31] MEDS ORDERED: ENOXAPARIN 80 MG/0.8 ML SYR SQ SCH ×2 (14:56→15:24)
[2018-01-31] MEDS: DIPHENHYDRAMINE HCL 25 MG CAPSULE PO PRN (22:08)
[2018-02-01] MEDS: PANTOPRAZOLE SODIUM 40 MG TABLET PO SCH (06:18)
[2018-02-01 06:37] LABS: INR 2.8; PROTHROMBIN TIME (PATIENT) 27.6 SECONDS (9.5-12.1)
[2018-02-01] MEDS: NOVOLOG FLEXPEN (INSULIN ASPART) 100 UNITS/ML SQ SCH ×2 (08:08→08:11)
[2018-02-01] MEDS: LEVEMIR FLEXTOUCH 100 UNIT/ML INSULIN PEN SQ SCH (08:10)
[2018-02-01] MEDS: LACTULOSE 20 GM/30 ML UDC PO SCH (09:11)
[2018-02-01] MEDS: SPIRONOLACTONE 25 MG TAB PO SCH (09:11)
[2018-02-01] MEDS: RIFAXIMIN 550 MG TABLET PO SCH (09:12)
[2018-02-01] MEDS: TAMSULOSIN HCL 0.4 MG CAP.ER.24H PO SCH (09:12)
[2018-02-01] MEDS: TORSEMIDE 20 MG TABLET PO SCH (09:12)
[2018-02-01] MEDS: GLIMEPIRIDE 2 MG TABLET PO SCH (09:13)
--- NOTE | 2018-02-01 09:39 | Discharge Note ---
VTE H&P Assessment - Risk for VTE Risk for VTE: Yes Risk Level: High Risk Assessment Date: 01/30/18 Risk Assessment Time: 21:56 VTE Orders Placed or Will Be Placed: Yes Discharge Medications - Discharge Medications Prescriptions: Ciprofloxacin HCl [Cipro] 500 mg PO Q12HR #14 tablet Enoxaparin Sodium [Lovenox] 120 mg SQ DAILY #7 ml Lactulose 30 gm PO QID #5400 ml Home Medications: Ambulatory Orders Spironolactone [Aldactone] 100 mg PO DAILY 04/15/17 [Last Taken 1 Day Ago ~01/28] Pantoprazole Sodium 40 mg PO DAILY 06/09/17 [Last Taken 1 Day Ago ~01/28/18] Torsemide [Demadex] 20 mg PO BID 08/07/17 [Last Taken 1 Day Ago ~01/28/18] Tamsulosin HCl [Flomax] 0.4 mg PO DAILY #30 cap.er.24h 08/11/17 [Last Taken 1 Day Ago ~01/28/18] Glimepiride [Amaryl] 4 mg PO BID 12/30/17 [Last Taken 1 Day Ago ~01/28/18] Ursodiol [Actigall] 300 mg PO BID 12/30/17 [Last Taken 1 Day Ago ~01/28/18] Insulin Aspart [Novolog Flexpen] 1 unit SQ TIDINS #1 ml 01/01/18 [Last Taken 1 Day Ago ~01/28/18] Insulin Detemir [Levemir Flextouch] 70 unit SQ DAILY syringe 01/01/18 [Last Taken 1 Day Ago ~01/28/18] Rifaximin [Xifaxan] 550 mg PO BID tablet 01/01/18 [Last Taken 1 Day Ago ~] Ciprofloxacin HCl [Cipro] 500 mg PO Q12HR #14 tablet 02/01/18 [Last Taken Unknown] Enoxaparin Sodium [Lovenox] 120 mg SQ DAILY #7 ml 02/01/18 [Last Taken Unknown] Glimepiride [Amaryl] 4 mg PO BIDWM tablet 02/01/18 [Last Taken Unknown] Insulin Aspart [Novolog Flexpen] 1 unit SQ TIDINS ml 02/01/18 [Last Taken Unknown] Insulin Aspart [Novolog Flexpen] 4 unit SQ TIDINS ml 02/01/18 [Last Taken Unknown] Lactulose 30 gm PO QID #5400 ml 02/01/18 [Last Taken Unknown] Torsemide 20 mg PO BID tablet 02/01/18 [Last Taken Unknown] Discharge Note - Date Date of Discharge Note: 02/01/18 Disposition: Home, Self-Care Condition: (2) Stable Additional Instructions: Fifi Alexander will see you at home. Phone# is [phone]. follow up with Dr. Croft fridayfeb 02 at 10:00 am in the office Referrals: Jed Croft D.O. [Primary Care Provider] - Forms: Patient Portal Access
[2018-02-01] MEDS ORDERED: CIPROFLOXACIN HCL 500 MG TABLET PO SCH (10:00)
--- NOTE | 2018-02-02 09:06 | CT SCAN REPORT ---
EXAM: CT OF THE HEAD WITHOUT CONTRAST HISTORY: SUDDEN ONSET OF SLURRED SPEECH. TECHNIQUE: Standard CT imaging of the head was obtained without intravenous contrast. Coronal and sagittal reformations are created. Comparison: 12/30/17. Hand dominance: Right. FINDINGS: Patient motion degrades image quality. The ventricles and sulci are prominent for mild generalized volume loss. No intracranial hemorrhage, extraaxial fluid collection, significant mass effect, or midline shift. The paredes white matter differentiation is maintained without for acute infarct. Heavy calcifications within the intracranial vertebral arteries and carotid siphons. The paranasal sinuses and mastoid air cells are clear. IMPRESSION: NEGATIVE NONCONTRAST HEAD CT. JOB NUMBER: [id number] MTDD
--- NOTE | 2018-02-03 13:50 | Discharge Summary ---
DATE OF SERVICE: 02/01/2018. DISCHARGE DIAGNOSES: 1. Hepatic encephalopathy. 2. Urinary tract infection, sensitive to Cipro. It was sensitive to Rocephin. 3. Diabetes mellitus type 2. 4. Portal vein thrombosis. 5. Thrombocytopenia. 6. Liver disease and liver failure. 7. Cirrhosis of the liver with ascites, needing peritoneal paracentesis about every 3 weeks, and is going to be set up for a paracentesis in the next week. 8. He is on Coumadin therapy, but he switches over to Lovenox bridging. Will drop his bridging down to 120 mg a day subcu for 5 days prior to the procedure. ATTENDING PHYSICIAN: Jed Croft DO. REASON FOR HOSPITALIZATION: This 77-year-old male presented to the emergency department with confusion, weakness, unable to ambulate, with a history of liver failure/cirrhosis with ascites. He presented to the ER by car. His ammonia level was 134. He has gained about 20 pounds in the last month. He was evaluated in the emergency department by Dr. Friedman, admitted to the hospital for lactulose and IV Rocephin for his urinary tract infection. SIGNIFICANT FINDINGS: His laboratory, he has a WBC of 4500, hemoglobin 11.2. His prothrombin time on the day of discharge is 2.8. Sodium is 134, potassium is 4.1, BUN is 24, creatinine is 1.6. His sugars have been running low in the morning, but it creeps up throughout the day, 79 yesterday, 103 this morning. His urine showing WBCs at 10-15, bacteria 4+. Sensitivities for the urine showing it was sensitive to Rocephin and Cipro, but not Keflex. He will be sent home on Cipro 500 mg twice a day for [address] of the head was done during this hospitalization, negative for any intracranial problems. THERAPY PROVIDED: Patient was placed on lactulose 30 g 4 times a day, which is a little bit higher dose for him. He will be taking 45 mL 4 times a day. He is getting about 4 bowel movements in 24 hours with that. He was started on IV Rocephin and will switch over to oral Cipro on discharge. HOSPITAL COURSE: He gradually improved. He is walking in the hallway with his walker nicely. CONDITION AT DISCHARGE: Improved. DISCHARGE INSTRUCTIONS: Follow up with Dr. Croft tomorrow at 10 a.m. Will be sending him home with Cipro 500 mg b.i.d. for 7 days, Lovenox 120 mg a day for 5 days prior to paracentesis, lactulose 30 g or 45 mL 4 times a day. Continue the spironolactone 100 mg daily, Protonix 40 mg daily, Demadex or torsemide 20 mg b.i.d., Flomax 0.4 mg daily, Amaryl 4 mg b.i.d., Actigall 300 mg b.i.d., insulin NovoLog 4 units before meals and scale coverage 1 unit for every 20 over 200, Levemir 70 units daily. He may be on Lantus. I have to look at his summary. Rifaximin 550 mg b.i.d. The Lovenox is bridging. We are going to start bridging with 120 because his renal status is a little bit worse than it was, instead of the 150 which he may already have at home. Amaryl 4 mg already stated twice a day, breakfast and dinner. MTDD
== END 2018-02-01 11:36 | disposition home health service (06) | DRG 441 ==
LOC: ER 09:41 → MEDSURG 12:09
PROVIDERS: ADMIT Emergency Medicine; ATTEND Emergency Medicine
DX: K72.90 Hepatic failure, unspecified without coma (principal); I81 Portal vein thrombosis; N39.0 Urinary tract infection, site not specified; R41.0 Disorientation, unspecified; I10 Essential (primary) hypertension; I50.9 Heart failure, unspecified; I48.91 Unspecified atrial fibrillation; Z79.01 Long term (current) use of anticoagulants; E78.00 Pure hypercholesterolemia, unspecified; E11.9 Type 2 diabetes mellitus without complications; Z79.4 Long term (current) use of insulin; D69.6 Thrombocytopenia, unspecified; Z86.718 Personal history of other venous thrombosis and embolism; Z85.820 Personal history of malignant melanoma of skin; Z95.5 Presence of coronary angioplasty implant and graft; Z87.891 Personal history of nicotine dependence
CPT/HCPCS: 36416; 70450; 80048; 80053; 80076; 81001; 82140; 82948; 83690; 85025; 85027; 85610; 85730; 96365; 99233; 99285; J0696